=== PATIENT | female | born 1955 | race Caucasian/White ===

== ENCOUNTER 2018-11-11 15:56 | Inpatient (IN) | payer MEDICARE, SELFPAY ==
[2018-11-11] VITALS (20 sets, daily range): BP systolic 110–172; BP diastolic 45–96; PULSE 82–94; RESP 16–24; TEMP 36.6–37.1; O2SAT 85–97; BMI 45.9; BMI 44.3
--- NOTE | 2018-11-11 16:00 | ED.DCSUM_ITS ---
History of Present Illness Chief Complaint: Hyperglycemia Detail of Chief Complaint: Patient has no insulin Informant: Patient Onset: Days Context: Sudden Onset Timing: Continuous Quality: Blurred vision, nocturia, polyuria, high blood sugar Location: Not applicable Current Severity: Moderate Maximum Severity: Moderate Worsened by: Lack of insulin Relieved by: Nothing Associated Symptoms: Polyuria, polyphagia, nocturia and yeast infection Narrative: Patient is a 63-year-old woman who is vacationing from [place]. She states the car she was in broke down. She ran out of insulin. She presents by squad because of blood sugar greater than 600. She complains of blurred vision, polyuria, polyphagia nocturia and yeast infection. She denies fever, chills night sweats. She denies rhinorrhea, postnasal drainage sore throat. She denies cough, shortness of breath or difficulty breathing. She denies chest discomfort. She denies abdominal pain. She denies nausea, vomiting diarrhea. She denies skin lesion. She states is compliant with her other medication. Prior similar symptoms: Yes Recent Illness/Hospitalization: No - Past Medical History (1) Benign essential hypertension Status: Chronic (2) Hypothyroidism Status: Chronic (3) Morbid obesity Status: Chronic (4) Type 2 diabetes mellitus Status: Chronic Past Medical History - Allergies and Home Meds Allergies/Adverse Reactions: Allergies ciprofloxacin [From Cipro] Allergy (Verified 11/11/18 16:01) Anaphylaxis levofloxacin [From Levaquin] Allergy (Verified 11/11/18 16:01) Anaphylaxis lisinopril Adverse Reaction (Verified 11/11/18 16:01) Other metformin Adverse Reaction (Verified 11/11/18 16:01) Diarrhea Prior records reviewed: No - None available Surgical History: appendectomy, cholecystectomy, hysterectomy, - - Bilateral tubal ligation and left hemicolectomy Lives: Spouse/ Significant Other Smoking Status: Former smoker Alcohol: None Drugs: None Review of Systems General: Denies: Chills, Fever, Malaise, Sweats Eyes: Reports: Visual changes - bilaterally, Blurred Vision - bilaterally. Denies: Diplopia ENT: Denies: Rhinorrhea, Sore throat Cardiovascular: Denies: Chest pain, Palpitations Respiratory: Denies: Dyspnea, Cough, Dyspnea on exertion Gastrointestinal: Denies: Abdominal pain, Nausea, Vomiting, Diarrhea, Melena, Hematochezia Genitourinary: Denies: Dysuria, Hematuria, Frequency Musculoskeletal: Denies: Myalgias, Arthralgias, Neck pain, Back pain, Extremity Pain Skin: Denies: Rash, Abrasions, Wounds Neurological: Denies: Headache, Weakness, Numbness Endocrine: Reports: Polyuria, Polydipsia. Denies: Heat intolerance, Cold intolerance Hematologic: Denies: Easy bruising, Easy bleeding Allergy: Denies: Uticaria Physical Exam Inital Vital Signs reviewed: Yes General: Well nourished, Well developed, Obese, No Acute Distress, - - There is no odor of ketones to her breath. Head: Normocephalic, Atraumatic Eyes: Perrl, EOMI. Negative for: Pale conjunctiva, Scleral icterus ENT: No rhinorrhea, TM's clear. Negative for: Dry mucous membranes Neck: Negative for: Supple, Nontender, No lymphadenopathy, No JVD, - Cardiovascular: Regular rate, Regular rhythm, No murmurs, Normal S1, Normal S2 Respiratory: No distress, CTA bilaterally, Chest nontender Abdomen: Soft, Nontender, Nondistended, Normal bowel sounds Back: Nontender, Normal Inspection Extremities: Nontender, No edema Skin: Normal color, No rash Neurological: Alert, Oriented x3, Cranial nerves II-XII grossly intact, Normal Strength, Normal Sensation Psychological: Normal affect, Normal Mood Diagnostic/Tx/Re-eval - EKG Initial EKG Interpretation: Sinus Rhythm - Rate is 92. IA interval is 174 ms. QRS durations 98 ms. QT duration is 366 ms. There is evidence of low voltage. Otherwise the EKG is normal. - Medical Decision Making Patient has symptoms of hyperglycemia. Per squad BGT greater than 600. We will treat initially with IV fluids. Will obtain basic metabolic panel to assess blood sugar as well as CO2/anion gap and electrolytes. Patient received Diflucan for her yeast infection. Will order insulin after IV fluids have infused. And to assess if patient will require insulin infusion versus subQ. Blood sugar is 833 with a normal CO2 and anion gap. Since liter of fluid has infused, insulin infusion was started at 0.05 units/kg/h. Patient was informed of results and need for admission. She is willing to stay. - Critical Care Time Critical care time (excluding procedures): 30-74 minutes - 32 minutes, Dis cussing w/Patient &/or Family/Assembler Skylights, Discussing w/Consultants, Arranging Admission or Transfer ED Disposition - Plan for ED Patient: Disposition: Acute Care Hospital [facility] Diagnosis: Hyperosmolar hyperglycemic coma due to diabetes mellitus without ketoacidosis, Hyperosmolar hyponatremia
[2018-11-11 16:15] LABS: Bedside Glucose > 500 mg/dL (70-110)
[2018-11-11] MEDS: 0.9% Normal Saline 1,000 ML 1000 ML IV ×2 (16:41→18:05)
[2018-11-11] MEDS: Fluconazole 100 MG Tablet 200 MG PO (16:41)
[2018-11-11 17:08] LABS: Absolute Lymphocyte Count 1.83 X10^3/uL (0.83-4.51); Absolute Neutrophil Count 8.6 X10^3/uL (2.0-7.7); Basophil# 0.04 X10^3/uL; Basophil% 0.4 % (0-1); Eosinophil# 0.09 X10^3/uL; Eosinophils% 0.8 % (0-5); Hematocrit 40.6 % (37-47); Hemoglobin 13.7 g/dL (12.0-15.0); Lymphocyte # 1.83 X10^3/ul (4.0); Lymphocyte % 16.4 % (19-41); Mean Corp Hgb Conc 33.7 g/dL (32-36); Mean Corpuscular Hgb 28.7 pg (27.0-32.0); Mean Corpuscular Volume 84.9 fL (81-99); Mean Platelet Vol. 9.4 fl (6.2-12.0); Monocyte# 0.58 X10^3/uL; Monocyte% 5.2 % (0-10); NRBC Flagged by Analyzer 0 % (0-5); Neutrophil # 8.58 X10^3/uL (2.7-7.7); Neutrophil % 76.9 % (47-70); Platelet Count 299 K/mm3 (150-450); RBC Distribution Width CV 13.1 % (11.6-14.6); RBC Distribution Width SD 40.1 fl (35.1-43.9); Red Blood Count 4.78 M/mm3 (4.2-5.4); White Blood Count 11.2 K/mm3 (4.4-11.0)
[2018-11-11 17:31] LABS: Anion Gap 13 (5-15); BUN 28 mg/dL (7-18); BUN/Creat Ratio 21.7 RATIO (10-20); Calcium,Total 8.8 mg/dL (8.5-10.1); Chloride 87 mmol/L (98-107); Creatinine, Serum 1.29 mg/dL (0.55-1.02); EST Glomerular Filtration Rate 44 mL/min (>60); Est Glom Filt Rate - Afr Amer 53 mL/min (>60); Estimated Creatinine Clearance 41.24 ml/min; Glucose 833 mg/dL (74-106); Potassium 4.2 mmol/L (3.5-5.1); Sodium Level 124 mmol/L (136-145)
--- NOTE | 2018-11-11 17:54 | EKG12_ITS ---
Test Reason : Blood Pressure : / mmHG Vent. Rate : 092 BPM Atrial Rate : 092 BPM P-R Int : 174 ms QRS Dur : 090 ms QT Int : 366 ms P-R-T Axes : 072 028 080 degrees QTc Int : 452 ms Normal sinus rhythm Low voltage QRS Borderline ECG Confirmed by ESTRADA MENDENHALL, CAROLE ([id number]), school photograph editor IGOR TOVAR ([id number]) on 11/13/2018 1:33:10 PM Referred By: SABRA Confirmed By:CAROLE DORADO MD
--- NOTE | 2018-11-11 18:46 | HP.PCM_ITS ---
<Samuel Clarke - Last Filed: 11/11/18 18:46> Problem List (1) Hyperosmolar hyperglycemic coma due to diabetes mellitus without ketoacid osis Status: Acute (2) Hyperosmolar hyponatremia Status: Acute (3) Benign essential hypertension Status: Chronic (4) Familial combined hyperlipidemia Status: Chronic (5) Hypothyroidism Status: Chronic (6) Morbid obesity Status: Chronic (7) Type 2 diabetes mellitus Status: Chronic (8) GERD (gastroesophageal reflux disease) Status: Chronic (9) Hiatal hernia Status: Chronic History of Present Illness Date of Admission: 11/11/18 Chief Complaint: Elevated glucose The patient is a 63 year old F with past medical history of type 2 diabetes, with morbid obesity, hypertension, hypothyroidism, GERD, hiatal hernia, who presents to the emergency room with complaints of blood sugar reading over 600 at home. The patient is currently visiting [place] from [place]. She was only planning on being here for 1 week however her car broke down while she was here and she only brought 1 weeks worth of insulin here. She recently ran out of her insulin and has been trying to manage her blood sugars by drinking extra water. Today she checked her blood sugar this morning it was 530, she drank extra water and rechecked it and it was greater than 600. She developed symptoms including difficulty swallowing, mild SOB, difficulty speaking, and increased thirst. She also has developed a severe yeast infection for which she was given Diflucan in the emergency room. She was brought to the ER and started on an insulin drip. She currently is resting comfortable in bed no acute distress. She is agreeable to staying overnight being placed on insulin drip. [] Past Medical History Past Medical History (Chronic Problems): Chronic Problems GERD (gastroesophageal reflux disease) (Chronic) Hiatal hernia (Chronic) Morbid obesity (Chronic) Hypothyroidism (Chronic) Familial combined hyperlipidemia (Chronic) Type 2 diabetes mellitus (Chronic) Benign essential hypertension (Chronic) Allergies ciprofloxacin [From Cipro] Allergy (Verified 11/11/18 16:01) Anaphylaxis levofloxacin [From Levaquin] Allergy (Verified 11/11/18 16:01) Anaphylaxis lisinopril Adverse Reaction (Verified 11/11/18 16:01) Other metformin Adverse Reaction (Verified 11/11/18 16:01) Diarrhea Surgical History: appendectomy, cholecystectomy, hysterectomy, - - Bilateral tubal ligation and left hemicolectomy 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 Denies: Cough, Shortness of breath at rest, Sputum production Gastrointestinal: Reports: - - difficulty swalling.. Denies: Abdominal Pain, Nausea, Vomiting Genitourinary: Denies: Dysuria Musculoskeletal: Denies: Joint Pain, Joint Tenderness Skin: Denies: Rash, Wounds Neurological: Denies: Numbness, Tingling, Focal weakness Psychiatric: Denies: Anxiety, Depression, Homicidal Ideations, Suicidal Ideations Endocrine: Reports: Polydipsia Hematologic/ Lymphatic: Denies: Easy Bruising, Easy Bleeding VTE Information - Inpt Only VTE Present on Admission: No VTE Mechan Device Prophylaxis: None VTE Pharm Prophylaxis ordered?: Yes Patient Problems: Active and Suspected Problems Hyperosmolar hyperglycemic coma due to diabetes mellitus without ketoacidosis (Acute) Hyperosmolar hyponatremia (Acute) - Physical Exam General: Alert, Oriented x3, Cooperative HEENT: Atraumatic, PERRLA, EOMI, Normocephalic Neck: Supple, No JVD, Negative Carotid Bruits Lungs: Clear to auscultation, Normal air movement Cardiovascular: Regular rate, No murmurs Abdomen: Bowel Sounds Present, Soft, Non Tender, Obese Extremities: No edema, Capillary Refill Less than 3 Seconds Skin: No rashes, No breakdown Musculoskeletal: No Tenderness to Palpation of Joints or Extremities Neurological: Cranial nerves II-XII grossly intact Psych/Mental Status: Normal Affect, Appropriate, Alert and oriented to time, place, person, mood and affect Vital Signs Temp Pulse Resp BP Pulse Ox 98.8 F 91 16 172/85 H 92 11/11/18 15:58 11/11/18 18:12 11/11/18 18:12 11/11/18 18:12 11/11/18 18:12 Oxygen Delivery Method Room Air Weight: 284 lb 13.396 oz Body Mass Index (BMI) 45.9 Laboratory Tests Past 24 Hrs 11/11/18 11/11/18 17:00 17:00 WBC 11.2 H RBC 4.78 Hgb 13.7 Hct 40.6 MCV 84.9 MCH 28.7 MCHC 33.7 RDW Std Deviation 40.1 RDW Coeff of Shira 13.1 Plt Count 299 MPV 9.4 Immature Gran % (Auto) 0.300 Neut % (Auto) 76.9 H Lymph % (Auto) 16.4 L Kidder % (Auto) 5.2 Eos % (Auto) 0.8 Baso % (Auto) 0.4 Absolute Neuts (auto) 8.6 H Absolute Lymphs (auto) 1.83 Nucleated RBC % 0 Sodium 124 L Potassium 4.2 Chloride 87 L Carbon Dioxide 24.0 Anion Gap 13 BUN 28 H Creatinine 1.29 H Estim Creat Clear Calc 41.24 Est GFR (MDRD) Af Amer 53 L Est GFR (MDRD) Non-Af 44 L BUN/Creatinine Ratio 21.7 H Glucose 833 H* Calcium 8.8 POC Glucose 11/11/18 16:11 POC Glucose > 500 H* Assessment/Plan All Active Problems Hyperosmolar hyperglycemic coma due to diabetes mellitus without ketoacidosis (Acute) Hyperosmolar hyponatremia (Acute) 1. Type 2 diabetes with HHS-secondary to patient running out of home insulin regimen. Will increase insulin drip to 0.1 units/kg/h. Provide aggressive IV fluids. She will need a prescription for her home medications at discharge. Gap is normal. 2. Hyponatremia-secondary to #1. Hydrate with normal saline. 3. Dehydration-mild elevation in BUN and creatinine. 4. Development of yeast infection-likely secondary to #1-received Diflucan in the ER. 5. Morbid obesity 6. Obstructive sleep apnea-CPAP nightly 7. Hypertension-hold HCTZ with hyponatremia 8. Anxiety depression-continue home medications 9. Hypothyroidism-continue Synthroid 10. GERD and hiatal hernia-continue PPI 11. HLD - on statin DVT ppx: lovenox DC planning: Likely home tomorrow, again will need prescriptions for medication she is out of at discharge. This patient was seen by Samuel Clarke PA-C under the supervision of Doctor Yoan. <Marco Antonio Milton - Last Filed: 11/11/18 19:03> History of Present Illness The patient is a 63 year old F [] Past Medical History Allergies ciprofloxacin [From Cipro] Allergy (Verified 11/11/18 16:01) Anaphylaxis levofloxacin [From Levaquin] Allergy (Verified 11/11/18 16:01) Anaphylaxis lisinopril Adverse Reaction (Verified 11/11/18 16:01) Other metformin Adverse Reaction (Verified 11/11/18 16:01) Diarrhea - Physical Exam Vital Signs Temp Pulse Resp BP Pulse Ox 98.8 F 91 16 172/85 H 92 11/11/18 15:58 11/11/18 18:12 11/11/18 18:12 11/11/18 18:12 11/11/18 18:12 Oxygen Delivery Method Room Air Weight: 129.2 kg Body Mass Index (BMI) 45.9 Laboratory Tests Past 24 Hrs 11/11/18 11/11/18 17:00 17:00 WBC 11.2 H RBC 4.78 Hgb 13.7 Hct 40.6 MCV 84.9 MCH 28.7 MCHC 33.7 RDW Std Deviation 40.1 RDW Coeff of Shira 13.1 Plt Count 299 MPV 9.4 Immature Gran % (Auto) 0.300 Neut % (Auto) 76.9 H Lymph % (Auto) 16.4 L Kidder % (Auto) 5.2 Eos % (Auto) 0.8 Baso % (Auto) 0.4 Absolute Neuts (auto) 8.6 H Absolute Lymphs (auto) 1.83 Nucleated RBC % 0 Sodium 124 L Potassium 4.2 Chloride 87 L Carbon Dioxide 24.0 Anion Gap 13 BUN 28 H Creatinine 1.29 H Estim Creat Clear Calc 41.24 Est GFR (MDRD) Af Amer 53 L Est GFR (MDRD) Non-Af 44 L BUN/Creatinine Ratio 21.7 H Glucose 833 H* Calcium 8.8 POC Glucose 11/11/18 16:11 POC Glucose > 500 H* Assessment/Plan This patient was seen in conjunction with Samuel Clarke PA-C . I have independently interviewed and examined the patient and reviewed pertinent historical, laboratory, and other data. Please refer to Samuel Clarke PA-C note for details of this patient's presentation, findings, and recommendations. I have reviewed Samuel Clarke PA-C note and concur with documented findings. In brief, patient is a 63-year-old female who presented with hyperglycemia after she ran out of her insulin Physical Examination: GENERAL: cooperative HEENT: Atraumatic; moist oral mucosa EYES; Anicteric, Normal Conjunctiva NECK; supple, normal thyroid, RESPIRATORY: Diminished to auscultation CARDIOVASCULAR: Regular S1 S2, EXTREMITIES: No edema, no clubbing, MUSCULOSKELETAL: No Joint Tenderness; NEURO: Awake; no lateralizing signs. SKIN: No Rash PSYCH; Normal affect Assessment: 1. Hyperosmolar nonketotic state 2. Diabetes mellitus type 2 presented with hyperosmolar nonketotic state 3. Hypothyroidism 4. Obesity with BMI of 46 5. Hiatal hernia with GERD 6. Depression with anxiety 7. Pseudohyponatremia 8. Dyslipidemia 9. HERMINIA 10. Essential Hypertension Recommendations: 1. I have discussed the results of my overview and impressions with the patient 2. Options for management were reviewed Code Visit OBSV E&M: [id number] Initial observation care L3
[2018-11-11] MEDS: 0.9% Normal Saline 1,000 ML 200 ML IV (20:17)
[2018-11-11] MEDS: Acetaminophen 325 MG Tablet 650 MG PO (20:30)
[2018-11-11 20:36] LABS: Bedside Glucose 435 mg/dL (70-110)
[2018-11-11 20:36] LABS: Bedside Glucose > 500 mg/dL (70-110)
[2018-11-11 20:50] LABS: Glucose 453 mg/dL (74-106)
[2018-11-11] MEDS: Pantoprazole Sodium 40 MG Tablet PO (21:27)
[2018-11-11] MEDS: Enoxaparin 40 MG/0.4 ML Syringe SC (21:27)
[2018-11-11] MEDS: Atorvastatin Calcium 40 MG Tablet PO (21:27)
[2018-11-11 22:20] LABS: Bedside Glucose 178 mg/dL (70-110)
[2018-11-11 22:20] LABS: Bedside Glucose 267 mg/dL (70-110)
[2018-11-11 22:41] LABS: Mucous, Urine 0 SEEN /hpf (<or=2+); Red Blood Cells-Urine 0 SEEN /hpf (0-5)
[2018-11-11 22:43] LABS: Color, Urine Straw (Yellow); Glucose, Dipstick 1000 mg/dl (Normal); Ketone-Dipstick 50 mg/dl (Negative); Leukocyte Esterase-Dipstick 100 /ul (Negative); Nitrite-Dipstick Negative (Negative); Occult Blood-Urine 25 /ul (Negative); Protein-Dipstick Negative (Negative); Urine Bilirubin Dipstick Negative (Negative); Urine Clarity Clear (Clear); Urine Urobilinogen Normal (Normal)
[2018-11-11 22:57] LABS: Bacteria 1+ /hpf (None Seen); Squamous Epithelial Cells - UA 0-5 SEEN /hpf (5-10); White Blood Cells 0-5 SEEN /hpf (0-5)
[2018-11-11 22:58] LABS: Yeast-Urine 1+ /hpf (None Seen)
[2018-11-11] MEDS: Metoprolol(XL)Succ 25 MG Tablet PO (23:31)
[2018-11-11 23:41] LABS: Bedside Glucose 132 mg/dL (70-110)
--- NOTE | 2018-11-11 23:56 | CPS ---
PT STATES HER CPAP SETTING AT HOME IS [id number].
[2018-11-12] VITALS (23 sets, daily range): BP systolic 101–153; BP diastolic 54–96; PULSE 67–99; RESP 12–22; TEMP 36.1–36.7; O2SAT 88–99
[2018-11-12 00:16] LABS: Bedside Glucose 137 mg/dL (70-110)
[2018-11-12] MEDS: 0.9% Normal Saline 1,000 ML 200 ML IV ×2 (01:14→05:43)
[2018-11-12 01:20] LABS: Bedside Glucose 168 mg/dL (70-110)
[2018-11-12 02:25] LABS: Bedside Glucose 213 mg/dL (70-110)
[2018-11-12 03:25] LABS: Bedside Glucose 234 mg/dL (70-110)
[2018-11-12 04:56] LABS: Bedside Glucose 313 mg/dL (70-110)
[2018-11-12] MEDS: Levothyroxine 150 MCG Tablet PO (05:42)
[2018-11-12] MEDS: Insulin Lispro 100 UNIT/ML INSULN.PEN 15 UNIT SC ×4 (05:42→17:35)
[2018-11-12 06:26] LABS: Absolute Lymphocyte Count 2.55 X10^3/uL (0.83-4.51); Absolute Neutrophil Count 4.5 X10^3/uL (2.0-7.7); Basophil# 0.05 X10^3/uL; Basophil% 0.6 % (0-1); Eosinophil# 0.24 X10^3/uL; Eosinophils% 3.1 % (0-5); Hematocrit 37.1 % (37-47); Hemoglobin 12.5 g/dL (12.0-15.0); Lymphocyte # 2.55 X10^3/ul (4.0); Lymphocyte % 32.8 % (19-41); Mean Corp Hgb Conc 33.7 g/dL (32-36); Mean Corpuscular Hgb 28.5 pg (27.0-32.0); Mean Corpuscular Volume 84.5 fL (81-99); Mean Platelet Vol. 9.2 fl (6.2-12.0); Monocyte# 0.39 X10^3/uL; NRBC Flagged by Analyzer 0 % (0-5); Neutrophil # 4.53 X10^3/uL (2.7-7.7); Neutrophil % 58.2 % (47-70); Platelet Count 287 K/mm3 (150-450); RBC Distribution Width CV 13.2 % (11.6-14.6); RBC Distribution Width SD 40.2 fl (35.1-43.9); Red Blood Count 4.39 M/mm3 (4.2-5.4); White Blood Count 7.8 K/mm3 (4.4-11.0)
[2018-11-12 07:02] LABS: Anion Gap 7 (5-15); BUN 20 mg/dL (7-18); BUN/Creat Ratio 25.2 RATIO (10-20); Calcium,Total 8.3 mg/dL (8.5-10.1); Chloride 101 mmol/L (98-107); Creatinine, Serum 0.79 mg/dL (0.55-1.02); EST Glomerular Filtration Rate 77 mL/min (>60); Est Glom Filt Rate - Afr Amer 94 mL/min (>60); Estimated Creatinine Clearance 69.96 ml/min; Glucose 323 mg/dL (74-106); Potassium 3.4 mmol/L (3.5-5.1); Sodium Level 134 mmol/L (136-145)
[2018-11-12 08:45] LABS: Bedside Glucose 313 mg/dL (70-110)
[2018-11-12] MEDS: Enoxaparin 40 MG/0.4 ML Syringe SC ×2 (10:49→21:32)
[2018-11-12] MEDS: Fluticasone 0.05% 1 SPRAY NASAL.SRY 2 SPRAY NASAL (10:49)
[2018-11-12] MEDS: DULoxetine Hcl 60 MG Capsule PO (10:50)
[2018-11-12] MEDS: Loratadine 10 MG Tablet PO (10:50)
--- NOTE | 2018-11-12 10:58 | NURSING ---
wound photo: left 3rd toe
[2018-11-12] MEDS: 0.9% Normal Saline 1,000 ML 100 ML IV ×2 (11:37→22:23)
[2018-11-12 11:50] LABS: Bedside Glucose 383 mg/dL (70-110)
--- NOTE | 2018-11-12 12:10 | CASEMGMT ---
RN HAKEEM IT SUPPORT ANALYST CM to room to meet with patient for initial transition planning/care coordination assessment. RN HAKEEM introduced self and role at [facility]. Pt voices understanding and consents to assessment at this time. Pt resting in bed in no distress at this time. Pt is A/O at this time and answers all questions appropriately. Care providers, pharmacy, and demographics verified/updated at this time. PCP: Dr Kayode Boogie in [place], [place] Specialists: none. Preferred Pharmacy: [facility]. Pt states while visiting in [place], she ran out of her insulin and d/t concerns of cost to have the prescriptions transferred to a local pharmacy in [place], she did not have them filled while here. She states she is concerned about the cost of medication at discharge. Pt informed J LUIS PALACIO will do ryan check on medications before she is discharged and discuss cost with her. Pt voices appreciation. Pt may benefit from [facility] Rx [facility]ist Program. Insurance: [employer] [facility] Prescription Benefit: Yes Living Will/HPOA: Pt does not currently have LW/HCPOA and states is interested in this. Pt made aware that forms are specific for each state. Pt states she will follow up with someone in [place] when she returns home to get these completed. LNOK: Living Arrangements: Lives with in a one-story home. 2 steps to enter. Independent with ADL's. Transportation: Pt states she drives but her car is in the shop. She states her friend will be picking her up at discharge and she will stay with her DIL until they are able to pick it up. DME: States has the following DME: hand held shower, cane, stool in bathtub, CPAP, glucometer. States she has the glucometer with her while here visiting in [place], that it works properly, and that she has all needed supplies for it. Pt states no need for further DME at this time. HHC/SNF: No history of either and no needs identified. Pt wishes to return home and states has no concerns with going home at time of discharge. Pt states does not smoke or drink ETOH. CM to follow for further discharge planning/needs. Pt voices no further concerns/needs at this time. Advised pt to ask for CM if any further questions/concerns/needs arise. Voices understanding. PLAN: Home with family support and discharge plans in place. Rosamaria STEVENS RN, CM
--- NOTE | 2018-11-12 13:38 | PCM.PROGNOTE ---
<Samuel Clarke - Last Filed: 11/12/18 13:38> Patient Problems: Active and Suspected Problems Hyperosmolar hyperglycemic coma due to diabetes mellitus without ketoacidosis (Acute) Hyperosmolar hyponatremia (Acute) Subjective: Pt resting comfortably upright at side of bed NAD. She does not feel quite back to her normal self. She feels the yeast infection is improving. Blood sugars are improved, still fluctuant. No SOB. No abdominal pain, nausea, vomiting. No dizziness/LH. No new numbness or tingling. No change in wound on toe. No fevers or chills. - Physical Exam General: Alert, Oriented x3, Cooperative HEENT: Atraumatic, PERRLA, EOMI, Normocephalic Neck: Supple, No JVD, Negative Carotid Bruits Lungs: Clear to auscultation, Normal air movement Cardiovascular: Regular rate, No murmurs Abdomen: Bowel Sounds Present, Soft, Non Tender Extremities: No edema, Capillary Refill Less than 3 Seconds Skin: No rashes, No breakdown Musculoskeletal: No Tenderness to Palpation of Joints or Extremities Neurological: Cranial nerves II-XII grossly intact Psych/Mental Status: Normal Affect, Appropriate, Alert and oriented to time, place, person, mood and affect Vital Signs Temp Pulse Resp BP Pulse Ox 97.0 F L 78 18 147/57 H 96 11/12/18 10:45 11/12/18 12:13 11/12/18 10:45 11/12/18 10:45 11/12/18 10:45 Oxygen Delivery Method Room Air Weight: 282 lb 13.649 oz Body Mass Index (BMI) 44.3 Intake and Output for Last 24 Hours 11/10/18 11/11/18 11/12/18 23:59 23:59 23:59 Intake Total 1199.2 / 1199.2 1231 / 1231 Output Total 600 / 600 Balance 599.2 / 599.2 1231 / 1231 Laboratory Tests Past 24 Hrs 11/11/18 11/11/18 11/11/18 17:00 17:00 20:10 WBC 11.2 H RBC 4.78 Hgb 13.7 Hct 40.6 MCV 84.9 MCH 28.7 MCHC 33.7 RDW Std Deviation 40.1 RDW Coeff of Shira 13.1 Plt Count 299 MPV 9.4 Immature Gran % (Auto) 0.300 Neut % (Auto) 76.9 H Lymph % (Auto) 16.4 L [place] % (Auto) 5.2 Eos % (Auto) 0.8 Baso % (Auto) 0.4 Absolute Neuts (auto) 8.6 H Absolute Lymphs (auto) 1.83 Nucleated RBC % 0 Sodium 124 L Potassium 4.2 Chloride 87 L Carbon Dioxide 24.0 Anion Gap 13 BUN 28 H Creatinine 1.29 H Estim Creat Clear Calc 41.24 Est GFR (MDRD) Af Amer 53 L Est GFR (MDRD) Non-Af 44 L BUN/Creatinine Ratio 21.7 H Glucose 833 H* 453 H* Calcium 8.8 Urine Color Urine Clarity Urine pH Ur Specific [place] Urine Protein Urine Glucose (UA) Urine Ketones Urine Occult Blood Urine Nitrite Urine Bilirubin Urine Urobilinogen Ur Leukocyte Esterase Urine RBC Urine WBC Ur Squamous Epith Cells Urine Bacteria Urine Mucus Urine Yeast 11/11/18 11/12/18 11/12/18 20:20 06:00 06:00 WBC 7.8 RBC 4.39 Hgb 12.5 Hct 37.1 MCV 84.5 MCH 28.5 MCHC 33.7 RDW Std Deviation 40.2 RDW Coeff of Shira 13.2 Plt Count 287 MPV 9.2 Immature Gran % (Auto) 0.300 Neut % (Auto) 58.2 Lymph % (Auto) 32.8 [place] % (Auto) 5.0 Eos % (Auto) 3.1 Baso % (Auto) 0.6 Absolute Neuts (auto) 4.5 Absolute Lymphs (auto) 2.55 Nucleated RBC % 0 Sodium 134 L Potassium 3.4 L Chloride 101 Carbon Dioxide 26.0 Anion Gap 7 BUN 20 H Creatinine 0.79 Estim Creat Clear Calc 69.96 Est GFR (MDRD) Af Amer 94 Est GFR (MDRD) Non-Af 77 BUN/Creatinine Ratio 25.2 H Glucose 323 H Calcium 8.3 L Urine Color Straw Urine Clarity Clear Urine pH 6.0 Ur Specific [place] 1.010 Urine Protein Negative Urine Glucose (UA) 1000 H Urine Ketones 50 H Urine Occult Blood 25 H Urine Nitrite Negative Urine Bilirubin Negative Urine Urobilinogen Normal Ur Leukocyte Esterase 100 H Urine RBC 0 SEEN Urine WBC 0-5 SEEN Ur Squamous Epith Cells 0-5 SEEN Urine Bacteria 1+ Urine Mucus 0 SEEN Urine Yeast 1+ POC Glucose 07/31/19 07/31/19 07/31/19 11:34 08:41 04:51 POC Glucose 383 H 313 H 313 H 11/12/18 11/12/18 11/12/18 03:20 02:11 01:10 POC Glucose 234 H 213 H 168 H 11/12/18 11/11/18 11/11/18 00:04 23:16 22:11 POC Glucose 137 H 132 H 178 H 11/11/18 11/11/18 11/11/18 21:13 20:11 19:29 POC Glucose 267 H 435 H > 500 H* 11/11/18 16:11 POC Glucose > 500 H* Medical Necessity - Tobacco Use Smoking Status: Former smoker Tobacco Use: Non-smoker Assessment/Plan All Active Problems Hyperosmolar hyperglycemic coma due to diabetes mellitus without ketoacidosis (Acute) Hyperosmolar hyponatremia (Acute) 1. Type 2 diabetes with HHS- home regimen resumed. SSI added. Improving. Titrate back fluids. 2. Hyponatremia-secondary to #1. Improved. Low K, repleted. 3. Dehydration-mild elevation in BUN and creatinine. 4. Development of yeast infection-likely secondary to #1-received Diflucan in the ER. 5. 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 Obstructive sleep apnea-CPAP nightly 7. Hypertension-hold HCTZ with hyponatremia 8. Anxiety depression-continue home medications 9. Hypothyroidism-continue Synthroid 10. GERD and hiatal hernia-continue PPI 11. HLD - on statin 12. Toe abrasion - healing. No signs of infection. Wound care evaluating. DVT ppx: lovenox DC planning: Likely home tomorrow, again will need prescriptions for medication she is out of at discharge. This patient was seen by Samuel Clarke PA-C under the supervision of Doctor Yoan. <Marco Antonio Milton - Last Filed: 11/12/18 13:54> - Physical Exam Vital Signs Temp Pulse Resp BP Pulse Ox 97.0 F L 78 18 147/57 H 96 11/12/18 10:45 11/12/18 12:13 11/12/18 10:45 11/12/18 10:45 11/12/18 10:45 Oxygen Delivery Method Room Air Weight: 128.3 kg Body Mass Index (BMI) 44.3 Intake and Output for Last 24 Hours 07/29/19 07/30/19 07/31/19 23:59 23:59 23:59 Intake Total 1199.2 / 1199.2 1231 / 1231 Output Total 600 / 600 Balance 599.2 / 599.2 1231 / 1231 Laboratory Tests Past 24 Hrs 11/11/18 11/11/18 11/11/18 17:00 17:00 20:10 WBC 11.2 H RBC 4.78 Hgb 13.7 Hct 40.6 MCV 84.9 MCH 28.7 MCHC 33.7 RDW Std Deviation 40.1 RDW Coeff of Shira 13.1 Plt Count 299 MPV 9.4 Immature Gran % (Auto) 0.300 Neut % (Auto) 76.9 H Lymph % (Auto) 16.4 L [place] % (Auto) 5.2 Eos % (Auto) 0.8 Baso % (Auto) 0.4 Absolute Neuts (auto) 8.6 H Absolute Lymphs (auto) 1.83 Nucleated RBC % 0 Sodium 124 L Potassium 4.2 Chloride 87 L Carbon Dioxide 24.0 Anion Gap 13 BUN 28 H Creatinine 1.29 H Estim Creat Clear Calc 41.24 Est GFR (MDRD) Af Amer 53 L Est GFR (MDRD) Non-Af 44 L BUN/Creatinine Ratio 21.7 H Glucose 833 H* 453 H* Calcium 8.8 Urine Color Urine Clarity Urine pH Ur Specific [place] Urine Protein Urine Glucose (UA) Urine Ketones Urine Occult Blood Urine Nitrite Urine Bilirubin Urine Urobilinogen Ur Leukocyte Esterase Urine RBC Urine WBC Ur Squamous Epith Cells Urine Bacteria Urine Mucus Urine Yeast 11/11/18 11/12/18 11/12/18 20:20 06:00 06:00 WBC 7.8 RBC 4.39 Hgb 12.5 Hct 37.1 MCV 84.5 MCH 28.5 MCHC 33.7 RDW Std Deviation 40.2 RDW Coeff of Shira 13.2 Plt Count 287 MPV 9.2 Immature Gran % (Auto) 0.300 Neut % (Auto) 58.2 Lymph % (Auto) 32.8 [place] % (Auto) 5.0 Eos % (Auto) 3.1 Baso % (Auto) 0.6 Absolute Neuts (auto) 4.5 Absolute Lymphs (auto) 2.55 Nucleated RBC % 0 Sodium 134 L Potassium 3.4 L Chloride 101 Carbon Dioxide 26.0 Anion Gap 7 BUN 20 H Creatinine 0.79 Estim Creat Clear Calc 69.96 Est GFR (MDRD) Af Amer 94 Est GFR (MDRD) Non-Af 77 BUN/Creatinine Ratio 25.2 H Glucose 323 H Calcium 8.3 L Urine Color Straw Urine Clarity Clear Urine pH 6.0 Ur Specific [place] 1.010 Urine Protein Negative Urine Glucose (UA) 1000 H Urine Ketones 50 H Urine Occult Blood 25 H Urine Nitrite Negative Urine Bilirubin Negative Urine Urobilinogen Normal Ur Leukocyte Esterase 100 H Urine RBC 0 SEEN Urine WBC 0-5 SEEN Ur Squamous Epith Cells 0-5 SEEN Urine Bacteria 1+ Urine Mucus 0 SEEN Urine Yeast 1+ POC Glucose 11/12/18 11/12/18 11/12/18 11:34 08:41 04:51 POC Glucose 383 H 313 H 313 H 11/12/18 11/12/18 11/12/18 03:20 02:11 01:10 POC Glucose 234 H 213 H 168 H 11/12/18 11/11/18 11/11/18 00:04 23:16 22:11 POC Glucose 137 H 132 H 178 H 11/11/18 11/11/18 11/11/18 21:13 20:11 19:29 POC Glucose 267 H 435 H > 500 H* 11/11/18 16:11 POC Glucose > 500 H* Assessment/Plan This patient was seen in conjunction with Samuel Clarke PA-C . I have independently interviewed and examined the patient and reviewed pertinent historical, laboratory, and other data. Please refer to Samuel Clarke PA-C note for details of this patient's presentation, findings, and recommendations. I have reviewed Samuel Clarke PA-C note and concur with documented findings. In brief, patient is a 63-year-old female who presented with hyperglycemia after she ran out of her insulin 11/11/2018. Patient was admitted to a monitored bed started on insulin drip. There is been some improvement in patient's glucose levels however still remains markedly elevated Physical Examination: GENERAL: cooperative HEENT: Atraumatic; moist oral mucosa EYES; Anicteric, Normal Conjunctiva NECK; supple, normal thyroid, RESPIRATORY: Diminished to auscultation CARDIOVASCULAR: Regular S1 S2, EXTREMITIES: No edema, no clubbing, MUSCULOSKELETAL: No Joint Tenderness; NEURO: Awake; no lateralizing signs. SKIN: No Rash PSYCH; Normal affect Assessment: 1. Hyperosmolar nonketotic state 2. Diabetes mellitus type 2 presented with hyperosmolar nonketotic state 3. Hypothyroidism 4. Obesity with BMI of 46 5. Hiatal hernia with GERD 6. Depression with anxiety 7. Pseudohyponatremia 8. Dyslipidemia 9. HERMINIA 10. Essential Hypertension Recommendations: 1. I have discussed the results of my overview and impressions with the patient 2. Options for management were reviewed Code Visit OBSV E&M: 29191 Subsequent observation care L3
[2018-11-12] MEDS: Ceftriaxone 1 GM/50 ML BAG IV (15:38)
[2018-11-12 16:50] LABS: Bedside Glucose 305 mg/dL (70-110)
[2018-11-12] MEDS: Insulin Lispro 100 UNIT/ML INSULN.PEN SC ×2 (17:36→22:20)
[2018-11-12] MEDS: Pantoprazole Sodium 40 MG Tablet PO (21:32)
[2018-11-12] MEDS: Atorvastatin Calcium 40 MG Tablet PO (21:32)
[2018-11-12] MEDS: Metoprolol(XL)Succ 25 MG Tablet PO (21:32)
[2018-11-12] MEDS: Acetaminophen 325 MG Tablet 650 MG PO (21:33)
[2018-11-12 21:46] LABS: Bedside Glucose 352 mg/dL (70-110)
[2018-11-12] MEDS: 0.9% NaCl Peripheral Flush Adult/Peds IV (22:36)
[2018-11-13] VITALS (7 sets, daily range): BP systolic 132–137; BP diastolic 52–76; PULSE 72–92; RESP 16–19; TEMP 35.6–37.1; O2SAT 91–98
[2018-11-13] MEDS: Insulin Lispro 100 UNIT/ML INSULN.PEN SC ×3 (03:47→12:10)
[2018-11-13 03:55] LABS: Bedside Glucose 206 mg/dL (70-110)
[2018-11-13] MEDS: Levothyroxine 150 MCG Tablet PO (05:45)
[2018-11-13] MEDS: 0.9% Normal Saline 1,000 ML 100 ML IV (05:45)
[2018-11-13 06:26] LABS: Anion Gap 8 (5-15); BUN 14 mg/dL (7-18); Calcium,Total 8.1 mg/dL (8.5-10.1); Chloride 107 mmol/L (98-107); EST Glomerular Filtration Rate 89 mL/min (>60); Est Glom Filt Rate - Afr Amer 108 mL/min (>60); Estimated Creatinine Clearance 78.96 ml/min; Glucose 195 mg/dL (74-106); Potassium 3.4 mmol/L (3.5-5.1); Sodium Level 141 mmol/L (136-145)
[2018-11-13] MEDS: Insulin Lispro 100 UNIT/ML INSULN.PEN 20 UNIT SC ×2 (08:24→12:12)
[2018-11-13 08:46] LABS: Bedside Glucose 188 mg/dL (70-110)
[2018-11-13] MEDS: Loratadine 10 MG Tablet PO (09:26)
[2018-11-13] MEDS: DULoxetine Hcl 60 MG Capsule PO (09:26)
[2018-11-13] MEDS: Fluticasone 0.05% 1 SPRAY NASAL.SRY 2 SPRAY NASAL (09:27)
[2018-11-13] MEDS: Enoxaparin 40 MG/0.4 ML Syringe SC (09:28)
[2018-11-13] MEDS: Ceftriaxone 1 GM/50 ML BAG IV (09:58)
--- NOTE | 2018-11-13 11:16 | PCM.DC ---
- Discharge Diagnoses Current Active Problems: Current Active and Chronic Problems Hyperosmolar hyperglycemic coma due to diabetes mellitus without ketoacidosis (Acute) Hyperosmolar hyponatremia (Acute) GERD (gastroesophageal reflux disease) (Chronic) Hiatal hernia (Chronic) You will use the following diet at home:: Calorie/Carbohydrate Controlled (specify 1200, 1400, etc) - 1800 Your food should be the consistency of: Regular Allergies/Adverse Reactions: Allergies ciprofloxacin [From Cipro] Allergy (Verified 11/11/18 16:01) Anaphylaxis levofloxacin [From Levaquin] Allergy (Verified 11/11/18 16:01) Anaphylaxis lisinopril Adverse Reaction (Verified 11/11/18 19:24) cough metformin Adverse Reaction (Verified 11/11/18 16:01) Diarrhea Medications to take at Discharge Acetaminophen [Tylenol Arthritis] 650 - 1,300 mg PO BID PRN PRN 11/11/18 Dulaglutide [Trulicity] 1.5 mg SQ WE 11/11/18 Duloxetine HCl 60 mg PO DAILY 11/11/18 Fexofenadine HCl 180 mg PO DAILY 11/11/18 Fluticasone 0.05% [Flonase Nasal [place]] 2 spry NASAL DAILY 11/11/18 Insulin Degludec [Tresiba Flextouch U-100] 62 units SQ DAILY 11/11/18 Levothyroxine Sodium 150 mcg PO DAILY 11/11/18 Losartan/Hydrochlorothiazide [Losartan-Hctz 100-25 mg Tab] 1 tab PO DAILY 11/11/18 Metoprolol(XL)Succ [Toprol Xl (Beta El[place])] 25 mg PO QHS 11/11/18 Omeprazole/Sodium Bicarbonate [Omeprazole-Bicarb 40-1,100 Cap] 1 cap PO QHS 11/11/18 Simvastatin 80 mg PO QHS 11/11/18 Cephalexin [Keflex] 500 mg PO TID #15 cap 11/13/18 Insulin Aspart [Novolog Vial] 20 units SQ TIDCM #0 11/13/18 Insulin Glargine [Lantus SoloStar Pen] 62 units SUBCUT DAILY #14 pen 11/13/18 Insulin Lispro [Humalog KwikPen] 20 unit SUBCUT TIDCM #8 insuln.pen 11/13/18 Potassium Chloride [K-Dur] 20 meq PO BIDCM #20 tab 11/13/18 The following prescriptions were given: Insulin Lispro [Humalog KwikPen] 20 unit SUBCUT TIDCM #8 insuln.pen Transmission Status: Sent to [facility] Potassium Chloride [K-Dur] 20 meq PO BIDCM #20 tab Transmission Status: Sent to [facility] Cephalexin [Keflex] 500 mg PO TID #15 cap Transmission Status: Pending to [id number] Insulin Glargine [Lantus SoloStar Pen] 62 units SUBCUT DAILY #14 pen Transmission Status: Sent to [facility] Primary Care Physician: Care Physician,No Primary [NON-STAFF] - Please follow up with your Primary Care Physician in: in 1-2 weeks in [place] Test Results: Test results from this visit will be discussed in further detail at your follow-up appointment, if applicable. Proposed Discharge Date: 11/13/18
--- NOTE | 2018-11-13 11:18 | PCM.DC.SUM ---
Discharge Date and Diagnosis - Problem List Patient Problems: Active and Suspected Problems Acute cystitis (Acute) Hyperosmolar hyperglycemic coma due to diabetes mellitus without ketoacidosis (Acute) Hyperosmolar hyponatremia (Acute) Date of Admission: 11/11/18 Date of Discharge: 11/13/18 - Primary Discharge Diagnosis Active and Suspected Problems Acute cystitis (Acute) Hyperosmolar hyperglycemic coma due to diabetes mellitus without ketoacidosis (Acute) Hyperosmolar hyponatremia (Acute) - Secondary Discharge Diagnosis Chronic Problems GERD (gastroesophageal reflux disease) (Chronic) Hiatal hernia (Chronic) Morbid obesity (Chronic) Hypothyroidism (Chronic) Familial combined hyperlipidemia (Chronic) Type 2 diabetes mellitus (Chronic) Benign essential hypertension (Chronic) Hospital Course and Treatment Consultations 11/11/18 19:24 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 Hyperosmolar nonketotic state: Patient was admitted to monitored bed managed with insulin initially IV switched to scheduled. Patient glucose levels are improved at the time of discharge 2. Diabetes mellitus type 2 presented with hyperosmolar nonketotic state 3. Acute cystitis with E. coli treated with Rocephin discharge him on Keflex 4. Hypokalemia corrected per protocol 5. Hypothyroidism-patient is on levothyroxine home dose continued 6. Obesity with BMI of 46 7. Hiatal hernia with GERD patient is on PPI 8. Depression with anxiety 9. Pseudohyponatremia due to patient hyperglycemia 10. Essential hypertension-blood pressure controlled, home medications continued with dose adjustment as needed 11. Dyslipidemia-patient is on statin therapy, continued at home dose 12. Sleep apnea on CPAP at night Patient Problems: Active and Suspected Problems Acute cystitis (Acute) Hyperosmolar hyperglycemic coma due to diabetes mellitus without ketoacidosis (Acute) Hyperosmolar hyponatremia (Acute) Objective: GENERAL: cooperative HEENT: Atraumatic; moist oral mucosa EYES; Anicteric, Normal Conjunctiva NECK; supple, normal thyroid, RESPIRATORY: Diminished to auscultation CARDIOVASCULAR: Regular S1 S2, EXTREMITIES: No edema, no clubbing, MUSCULOSKELETAL: No Joint Tenderness; NEURO: Awake; no lateralizing signs. SKIN: No Rash PSYCH; Normal affect - Physical Exam Vital Signs Temp Pulse Resp BP Pulse Ox 96.0 F L 92 16 133/76 H 94 08/01/19 09:20 11/13/18 09:20 11/13/18 09:20 11/13/18 09:20 11/13/18 09:20 Oxygen Delivery Method Room Air Weight: 128.3 kg Body Mass Index (BMI) 44.3 Intake and Output for Last 24 Hours 11/11/18 11/12/18 11/13/18 23:59 23:59 23:59 Intake Total 1199.2 / 1199.2 4099 / 4099 644 / 644 Output Total 600 / 600 Balance 599.2 / 599.2 4099 / 4099 644 / 644 Microbiology Past 72 Hours 11/11/18 20:20 Urine Culture - Preliminary Urine, Clean Catch Presumptive E. coli Laboratory Tests Past 24 Hrs 11/13/18 05:45 Sodium 141 Potassium 3.4 L Chloride 107 Carbon Dioxide 26.0 Anion Gap 8 BUN 14 Creatinine 0.70 Estim Creat Clear Calc 78.96 Est GFR (MDRD) Af Amer 108 Est GFR (MDRD) Non-Af 89 BUN/Creatinine Ratio 20.0 Glucose 195 H Calcium 8.1 L POC Glucose 11/13/18 11/13/18 11/12/18 08:21 03:43 21:27 POC Glucose 188 H 206 H 352 H 11/12/18 11/12/18 16:42 11:34 POC Glucose 305 H 383 H Discharge Diet: 1800 Calorie Control Diet Home Medications: Medications to take at Discharge Acetaminophen [Tylenol Arthritis] 650 - 1,300 mg PO BID PRN PRN 11/11/18 Dulaglutide [Trulicity] 1.5 mg SQ WE 11/11/18 Duloxetine HCl 60 mg PO DAILY 11/11/18 Fexofenadine HCl 180 mg PO DAILY 11/11/18 Fluticasone 0.05% [Flonase Nasal [place]] 2 spry NASAL DAILY 11/11/18 Insulin Degludec [Tresiba Flextouch U-100] 62 units SQ DAILY 11/11/18 Levothyroxine Sodium 150 mcg PO DAILY 11/11/18 Losartan/Hydrochlorothiazide [Losartan-Hctz 100-25 mg Tab] 1 tab PO DAILY 11/11/18 Metoprolol(XL)Succ [Toprol Xl (Beta [place])] 25 mg PO QHS 11/11/18 Omeprazole/Sodium Bicarbonate [Omeprazole-Bicarb 40-1,100 Cap] 1 cap PO QHS 11/11/18 Simvastatin 80 mg PO QHS 11/11/18 Cephalexin [Keflex] 500 mg PO TID #15 cap 11/13/18 Insulin Aspart [Novolog Vial] 20 units SQ TIDCM #0 11/13/18 Insulin Glargine [Lantus SoloStar Pen] 62 units SUBCUT DAILY #14 pen 11/13/18 Insulin Lispro [Humalog KwikPen] 20 unit SUBCUT TIDCM #8 insuln.pen 11/13/18 Potassium Chloride [K-Dur] 20 meq PO BIDCM #20 tab 11/13/18 Following Prescrptions Were Given to Patient: Insulin Lispro [Humalog KwikPen] 20 unit SUBCUT TIDCM #8 insuln.pen Transmission Status: Sent to [facility] Potassium Chloride [K-Dur] 20 meq PO BIDCM #20 tab Transmission Status: Sent to [facility] Cephalexin [Keflex] 500 mg PO TID #15 cap Transmission Status: Pending to [id number] Insulin Glargine [Lantus SoloStar Pen] 62 units SUBCUT DAILY #14 pen Transmission Status: Sent to [facility] Primary Care Physician: Care Physician,No Primary [NON-STAFF] - Please follow up with your Primary Care Physician in: in 1-2 weeks in [place] Disposition: Home Minutes spent on discharge:: 45 Patient Condition:: Stable Medical Necessity - Tobacco Use Smoking Status: Former smoker Tobacco Use: Non-smoker Meaningful Use Info Meaningful Use Diagnoses (Choose all that apply): None applicable Code Visit Inpatient E&M: 49195 Disch Hosp
[2018-11-13 12:41] LABS: Bedside Glucose 169 mg/dL (70-110)
--- NOTE | 2018-11-13 14:29 | CASEMGMT ---
Per Polly DIETZ, pt's novolog is $8-10. Call to [facility] and per Humaira, Basaglar is $8.50 and Cephalexin is $3.40. 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 Pt discharged at that time. Aminah DIETZ CM
== END 2018-11-13 14:03 | disposition home or self-care (01) | DRG 638 ==
LOC: ED 18:15 → PCU 19:20
PROVIDERS: Internal Medicine; Physician Assistant; Admitting Provider Internal Medicine; Emergency Provider Emergency Medicine; Visit Provider Internal Medicine
DX: E11.01 Type 2 diabetes mellitus with hyperosmolarity with coma (principal); N30.00 Acute cystitis without hematuria; Z68.42 Body mass index [BMI] 45.0-49.9, adult; E87.1 Hypo-osmolality and hyponatremia; T38.3X6A Underdosing of insulin and oral hypoglycemic [antidiabetic] drugs, initial encounter; B96.20 Unspecified Escherichia coli [E. coli] as the cause of diseases classified elsewhere; B37.9 Candidiasis, unspecified; E66.01 Morbid (severe) obesity due to excess calories; E03.9 Hypothyroidism, unspecified; I10 Essential (primary) hypertension; E87.6 Hypokalemia; G47.33 Obstructive sleep apnea (adult) (pediatric); F41.8 Other specified anxiety disorders; K21.9 Gastro-esophageal reflux disease without esophagitis; K44.9 Diaphragmatic hernia without obstruction or gangrene; E78.49 Other hyperlipidemia; Z79.4 Long term (current) use of insulin; Z87.891 Personal history of nicotine dependence; E86.0 Dehydration; R13.10 Dysphagia, unspecified; Z90.710 Acquired absence of both cervix and uterus; Z83.3 Family history of diabetes mellitus
CPT/HCPCS: 36415; 80048; 81001; 82947; 82962; 85025; 87077; 87086; 87088; 87186; 93005; 94002; 94660; 97802; 99285; J7030; A4216

== ENCOUNTER 2024-02-22 15:20 | Inpatient (IN) | payer MEDICARE, SELFPAY ==
[2024-02-22 15:20] VITALS: BP 134/63; PULSE 78; RESP 19; TEMP 35.3; O2SAT 97; BMI 43.9
--- NOTE | 2024-02-22 15:40 | EX.ED.DYSGE1 ---
HPI <BRENNON Mireles - Last Filed: 02/22/24 17:22> History of Present Illness Chief Complaint: Hyperglycemia Narrative Narrative: Patient is a 68-year-old female history of obesity, GERD, hypothyroidism, CHF who presents to the [facility] for elevated blood sugar. Patient states that she has been taking her daily medication however secondary to moving [place] between [place], not having a PCP here, she has been unable to get her Trulicity. Patient states that she is thought she had a UTI, she then went to urgent care, they did confirm a UTI, however her blood sugar was over 550, so they referred her to the emergency department. Patient that she does have some increased thirst, increased urination, here for evaluation. Denies any chest pain or shortness of breath. PFS <BRENNON Mireles - Last Filed: 02/22/24 17:22> [facility] Home Medications ?Medication ?Instructions ?Recorded ?Last Taken ?Type acetaminophen 650 mg 650 - 1,300 mg PO BID PRN PRN Pain 11/11/18 11/11/18 History tablet,extended release dulaglutide 1.5 mg/0.5 mL 1.5 mg SQ WE diabetes 11/11/18 11/05/18 History subcutaneous pen injector duloxetine 60 mg capsule,delayed 60 mg PO DAILY pain 11/11/18 11/10/18 History release fexofenadine 180 mg tablet 180 mg PO DAILY allergies 11/11/18 11/11/18 History fluticasone propionate 50 2 spry NASAL DAILY allergies 11/11/18 11/10/18 History mcg/actuation nasal spray,suspension insulin degludec 100 unit/mL (3 62 units SQ DAILY diabetes 11/11/18 11/08/18 History mL) subcutaneous pen levothyroxine 150 mcg tablet 150 mcg PO DAILY thyroid 11/11/18 11/11/18 History losartan 100 1 tab PO DAILY blood pressure 11/11/18 11/11/18 History mg-hydrochlorothiazide 25 mg tablet metoprolol succinate 25 mg 25 mg PO QHS blood pressure 11/11/18 Unknown History tablet,extended release 24 hr omeprazole 40 mg-sodium 1 cap PO QHS reflux 11/11/18 11/10/18 History bicarbonate 1.1 gram capsule simvastatin 80 mg tablet 80 mg PO QHS cholesterol 11/11/18 11/10/18 History cephalexin 500 mg capsule 500 mg PO TID #15 caps 11/13/18 Unknown Rx insulin aspart U-100 100 unit/mL 20 units (0.2 mL) SQ TIDCM #8 vials 11/13/18 Unknown Rx subcutaneous solution insulin glargine 100 unit/mL (3 62 unit (0.62 mL) SQ QHS ##14 11/13/18 Unknown Rx mL) subcutaneous pen pen needle, diabetic, safety 30 ##1 11/13/18 Unknown Rx gauge x 1/3 potassium chloride 20 mEq 20 meq PO BIDCM #20 tabs 11/13/18 Unknown Rx tablet,extended release(part/cryst) Allergy/AdvReac Type Severity Reaction Status Date / Time ciprofloxacin (From Cipro) Allergy Anaphylaxis Verified 12/20/23 14:53 levofloxacin (From Levaquin) Allergy Anaphylaxis Verified 12/20/23 14:53 lisinopril AdvReac cough Verified 12/20/23 14:53 metformin AdvReac Diarrhea Verified 12/20/23 14:53 Social History Smoking Status: Former smoker ROS <BRENNON Mireles - Last Filed: 02/22/24 17:22> ROS ED ROS Narrative Constitutional: Negative for fever, chills, weight loss, weakness Eyes: Negative for vision loss, vision change, double vision ENT: Negative for any sore throat, ear pain, congestion Cardiovascular: Negative for any chest pain, tightness, palpitations Respiratory: Negative for any cough, sputum production, hemoptysis, dyspnea, dyspnea on exertion, orthopnea Gastrointestinal: Negative for any abdominal pain, nausea, vomiting, diarrhea, constipation, blood in stool, blood in vomit : Negative for any retention, blood in urine. Positive dysuria, urinary frequency Muscle skeletal: Negative for any neck pain, back pain Neurological: Negative for any headache, syncope, dizziness Skin: Negative for any rashes, itching, abrasions, lacerations Psychiatric: Negative for any depression, anxiety, stress, suicidal ideation, homicidal ideation Hematologic: Negative for any excessive bruising, easy bleeding EXAM <BRENNON Mireles - Last Filed: 02/22/24 17:22> Physical Exam Narrative Exam Narrative: Vital signs reviewed. Patient appears to be in no obvious distress, patient is slightly disheveled, patient does smell of urine. HEET: Head normocephalic atraumatic, TMs clear bilaterally. Posterior pharynx is clear, dry mucous membranes. Nares clear bilaterally. Neck: Supple with no lymphadenopathy or tenderness. No signs of meningismus. Cardiac: Regular rate and rhythm no murmurs gallops or rubs, equal peripheral pulses bilaterally. Respiratory: Lungs clear to auscultation bilaterally. No chest tenderness. Abdomen: Soft, nontender, nondistended. No abdominal bruit or pulsatile masses. No hepatosplenomegaly Extremities: No peripheral edema, no signs of gross trauma or deformity. Active full range of motion of all extremities. Neuro: Cranial nerves II through XII intact, no focal neurological deficits. Skin: Clean dry and intact with no rash, purpura, petechiae, vesicles or pustules. Backs/flank: No CVA tenderness, no midline spinal tenderness, no deformity. Psych: Normal mood and affect. No SI, HI or acute psychosis. Const Vital Signs: 02/22/24 15:20 02/22/24 15:41 Temperature 95.6 F L 98.1 F Temperature Source Temporal Oral Pulse Rate 78 78 Respiratory Rate 19 H 18 Blood Pressure 134/63 H 134/63 H Blood Pressure Mean 86 86 Pulse Ox 97 98 Oxygen Delivery Method Room Air Room Air <Dr. Samson Tse DO - Last Filed: 02/22/24 16:50> Physical Exam Const Vital Signs: 02/22/24 15:20 02/22/24 15:41 Temperature 95.6 F L 98.1 F Temperature Source Temporal Oral Pulse Rate 78 78 Respiratory Rate 19 H 18 Blood Pressure 134/63 H 134/63 H Blood Pressure Mean 86 86 Pulse Ox 97 98 Oxygen Delivery Method Room Air Room Air [facility] <BRENNON Mireles - Last Filed: 02/22/24 17:22> [facility] Lab Data Labs: Laboratory Results - last 24 hr 02/22/24 15:55 WBC 8.9 RBC 5.05 Hgb 14.4 Hct 43.3 MCV 85.7 MCH 28.5 MCHC 33.3 RDW Std Deviation 40.7 RDW Coeff of Shira 13.1 Plt Count 324 MPV 9.3 Immature Gran % (Auto) 0.500 Neut % (Auto) 67.8 Lymph % (Auto) 25.5 [place] % (Auto) 4.6 Eos % (Auto) 1.0 Baso % (Auto) 0.6 Absolute Neuts (auto) 6.0 Absolute Lymphs (auto) 2.26 Nucleated RBC % 0 Sodium 128 L Potassium 4.1 Chloride 90 L Carbon Dioxide 27.0 Anion Gap 11 BUN 26 H Creatinine 1.53 H Estim Creat Clear Calc 46.58 Est GFR (MDRD) Af Amer 43 L Est GFR (MDRD) Non-Af 36 L BUN/Creatinine Ratio 17.0 Glucose 634 H* Lactic Acid 4.5 H* Calcium 9.3 Total Bilirubin 0.40 AST 15 ALT 25 Alkaline Phosphatase 103 Total Protein 7.8 Albumin 3.8 Globulin 4.0 Albumin/Globulin Ratio 1.0 Urine Color Straw Urine Clarity Sl. Cloudy Urine pH 6.5 Ur Specific [place] 1.005 Urine Protein Negative Urine Glucose (UA) 1000 H Urine Ketones Negative Urine Occult Blood 10 H Urine Nitrite Positive H Urine Bilirubin Negative Urine Urobilinogen Normal Ur Leukocyte Esterase 500 H Urine RBC 0 SEEN Urine WBC >100 SEEN Ur Squamous Epith Cells 25-50 SEEN Urine Bacteria 2+ Urine Mucus 0 SEEN Urine Yeast 1+ Acetone Level NEGATIVE ABG Data ABG results: ABG 02/22/24 16:02 Specimen Type CAYDEN Sample Site Not entered VBG pH 7.35 VBG pO2 41 H VBG HCO3 28 H VBG Total CO2 29 VBG O2 Sat (Calc) 73 H VBG Base Excess 2 POC Mix VBG pCO2 Pt Tmp 50.1 O2 Delivery Device Not entered Treatment and Re-Evaluation :: Differential diagnosis includes however is not limited to: Hyperglycemia, sepsis, UTI, DKA, dehydration, electrolyte abnormality, dehydration Patient appears generally well, vital signs are stable, patient is nontoxic-appearing. Presenting to the emergency department for UTI-like symptoms as well as hyperglycemia. Patient will receive a repeat urinalysis, basic laboratory values including acetone and lactic acid as well as a VBG. Patient will receive 1 L of normal saline. I do not believe the patient is in DKA, patient after IV fluids will have repeat sugar drawn. Patient will need to be reevaluated. Patient CBC was unremarkable, chemistries show hyponatremia with a sodium 128, this is reactive to the patient's elevated blood glucose of 634, lactic acid was 4.5, patient's creatinine is 1.53, significantly elevated from 0.70 in 2019. Patient does have a UTI with 2+ bacteria greater than 100 white blood cells, 5-year leukocytes, positive nitrites. This we sent for culture started on IV Rocephin. Patient's VBG was unremarkable. No evidence of any DKA, negative acetone. However secondary the patient's elevated blood sugar, UTI, noncompliance, I do believe the patient benefit from being in the hospital specially with no one to closely follow-up. I spoke with hospitalist who is in agreement. Patient stable for admission <Dr. Samson Tse, DO - Last Filed: 02/22/24 16:50> [facility] MDM Narrative Medical decision making narrative: I have personally performed a face to face assessment of the patient and have reviewed the AMARJIT Note. I performed a substantive portion of the visit including all aspects of the following. My louie findings include: History is [patient presents to the emergency department from urgent care for concern over elevated blood sugars. Patient is a known type II diabetic and has been taking short acting insulin as well as long-acting insulin but is but been without her Trulicity for several months. Patient states she is not been very good with her diet. She went to urgent care because she thought she was getting a UTI and that they did affirm this for her. Patient denies any fevers or chills or sweats. She has had no vomiting. She does complain of some mild low back pain. Patient scheduled to follow-up with Nikki soria in clinic next week.] Exam is [HEENT-PERRLA, EOMI. Cranial nerves II through XII grossly intact. TMs clear. Mucous membranes moist. No adenopathy. Cardiovascular-regular rate and rhythm without murmur or ectopy Lungs-clear to auscultation, chest wall stable without crepitus or subcu emphysema Abdomen-normoactive bowel sounds, soft, nontender, no rebound or rigidity, no peritoneal signs. Extremities-intact ?4, normal range of motion, normal pulses, atraumatic] Medical Decison Making [patient presents with hyperglycemia and symptoms of UTI. Clinically she looks well. CBC with differential obtained showed a white count of 8.9 with hemoglobin 14 and platelet count of 324. Chemistries show low sodium of 128 with BUN of 26 and creatinine 1.53 with significant change from prior and consistent with ASIM. Glucose also elevated 634 and lactate was elevated at 4.5. LFTs unremarkable. Urinalysis positive for UTI. Acetone was negative. Patient was ordered Rocephin IV and given 15 units subcu of regular insulin. Case will be discussed with hospitalist to evaluate patient for admission. She will be given IV fluids normal saline.] Other additions or changes: [None] Lab Data Labs: Laboratory Results - last 24 hr 02/22/24 15:55 WBC 8.9 RBC 5.05 Hgb 14.4 Hct 43.3 MCV 85.7 MCH 28.5 MCHC 33.3 RDW Std Deviation 40.7 RDW Coeff of Shira 13.1 Plt Count 324 MPV 9.3 Immature Gran % (Auto) 0.500 Neut % (Auto) 67.8 Lymph % (Auto) 25.5 [place] % (Auto) 4.6 Eos % (Auto) 1.0 Baso % (Auto) 0.6 Absolute Neuts (auto) 6.0 Absolute Lymphs (auto) 2.26 Nucleated RBC % 0 Sodium 128 L Potassium 4.1 Chloride 90 L Carbon Dioxide 27.0 Anion Gap 11 BUN 26 H Creatinine 1.53 H Estim Creat Clear Calc 46.58 Est GFR (MDRD) Af Amer 43 L Est GFR (MDRD) Non-Af 36 L BUN/Creatinine Ratio 17.0 Glucose 634 H* Lactic Acid 4.5 H* Calcium 9.3 Total Bilirubin 0.40 AST 15 ALT 25 Alkaline Phosphatase 103 Total Protein 7.8 Albumin 3.8 Globulin 4.0 Albumin/Globulin Ratio 1.0 Urine Color Straw Urine Clarity Sl. Cloudy Urine pH 6.5 Ur Specific [place] 1.005 Urine Protein Negative Urine Glucose (UA) 1000 H Urine Ketones Negative Urine Occult Blood 10 H Urine Nitrite Positive H Urine Bilirubin Negative Urine Urobilinogen Normal Ur Leukocyte Esterase 500 H Urine RBC 0 SEEN Urine WBC >100 SEEN Ur Squamous Epith Cells 25-50 SEEN Urine Bacteria 2+ Urine Mucus 0 SEEN Urine Yeast 1+ Acetone Level NEGATIVE ABG Data ABG results: ABG 02/22/24 16:02 Specimen Type CAYDEN Sample Site Not entered VBG pH 7.35 VBG pO2 41 H VBG HCO3 28 H VBG Total CO2 29 VBG O2 Sat (Calc) 73 H VBG Base Excess 2 POC Mix VBG pCO2 Pt Tmp 50.1 O2 Delivery Device Not entered Discharge Plan Dx/Rx/DC Orders Clinical Impression: Acute UTI, Acute hyponatremia, ASIM (acute kidney injury), Hyperglycemia Disposition Disposition: Acute Care Hospital [facility]
[2024-02-22 15:41] VITALS: BP 134/63; PULSE 78; RESP 18; TEMP 36.7; O2SAT 98
[2024-02-22] MEDS: 0.9% Normal Saline (1000mL) 1,000 ML 999 ML IV (16:00)
[2024-02-22 16:06] LABS: Blood Gas Specimen Type VEN; O2 Delivery Device Not entered; SITE Not entered; VBG BASE EXCESS 2 mmol/L (-1.0-3.5); VBG Bicarbonate 28 mmol/L (22-26); VBG PO2 41 mmHg (25-40); VBG SO2 73 % (50-70); VBG TCO2 29 mmol/L (23-33); VBG pCO2 50.1 mmHg (41-51); VBG pH 7.35 (7.32-7.42)
[2024-02-22 16:16] LABS: Mucous, Urine 0 SEEN /hpf (<or=2+); Red Blood Cells-Urine 0 SEEN /hpf (0-5)
[2024-02-22 16:17] LABS: Absolute Lymphocyte Count 2.26 X10^3/uL (0.83-4.51); Basophil# 0.05 X10^3/uL; Basophil% 0.6 % (0-1); Eosinophil# 0.09 X10^3/uL; Hematocrit 43.3 % (37-47); Hemoglobin 14.4 g/dL (12.0-15.0); Lymphocyte # 2.26 X10^3/ul (0.83-4.51); Lymphocyte % 25.5 % (19-41); Mean Corp Hgb Conc 33.3 g/dL (32-36); Mean Corpuscular Hgb 28.5 pg (27.0-32.0); Mean Corpuscular Volume 85.7 fL (81-99); Mean Platelet Vol. 9.3 fl (6.2-12.0); Monocyte# 0.41 X10^3/uL; Monocyte% 4.6 % (0-10); NRBC Flagged by Analyzer 0 % (0-5); Neutrophil # 6.02 X10^3/uL (2.7-7.7); Neutrophil % 67.8 % (47-70); Platelet Count 324 K/mm3 (150-450); RBC Distribution Width CV 13.1 % (11.6-14.6); RBC Distribution Width SD 40.7 fl (35.1-43.9); Red Blood Count 5.05 M/mm3 (4.2-5.4); White Blood Count 8.9 K/mm3 (4.4-11.0)
[2024-02-22 16:19] LABS: Color, Urine Straw (Yellow); Glucose, Dipstick 1000 mg/dl (Normal); Ketone-Dipstick Negative (Negative); Leukocyte Esterase-Dipstick 500 /ul (Negative); Nitrite-Dipstick Positive (Negative); Occult Blood-Urine 10 /ul (Negative); Protein-Dipstick Negative (Negative); Specific Gravity, Urine 1.005 (1.002-1.030); Urine Bilirubin Dipstick Negative (Negative); Urine Clarity Sl. Cloudy (Clear); Urine Urobilinogen Normal (Normal); Urine pH 6.5 (5.0 - 8.0)
[2024-02-22 16:38] LABS: Bacteria 2+ /hpf (None Seen); Squamous Epithelial Cells - UA 25-50 SEEN /hpf (5-10); White Blood Cells >100 SEEN /hpf (0-5); Yeast-Urine 1+ /hpf (None Seen)
[2024-02-22 16:46] LABS: AST(SGOT) 15 U/L (15-37); Alanine Aminotransfer ALT/SGPT 25 U/L (13-56); Albumin, Serum 3.8 g/dL (3.2-5.0); Alkaline Phosphatase 103 U/L (45-117); Anion Gap 11 (5-15); BUN 26 mg/dL (7-18); Calcium,Total 9.3 mg/dL (8.5-10.1); Chloride 90 mmol/L (98-107); Creatinine, Serum 1.53 mg/dL (0.55-1.02); EST Glomerular Filtration Rate 36 mL/min (>60); Est Glom Filt Rate - Afr Amer 43 mL/min (>60); Estimated Creatinine Clearance 46.58 ml/min; Glucose 634 mg/dL (74-106); Lactic Acid 4.5 mmol/L (0.4-1.9); Potassium 4.1 mmol/L (3.5-5.1); Protein, Total 7.8 g/dL (6.4-8.2); Sodium Level 128 mmol/L (136-145)
[2024-02-22] MEDS: Insulin Lispro 100 UNIT/ML INSULN.PEN 15 UNIT SC (17:01)
[2024-02-22] MEDS: Ceftriaxone 1 GM/50 ML BAG IV (17:02)
--- NOTE | 2024-02-22 17:12 | PCM.HP.STD ---
HPI - General General Date of Admission: 02/22/24 Date of Service: 02/22/24 Chief Complaint: Hyperglycemia HPI Narrative TELLY GARCIA, is a 68 F with past medical history of poorly controlled type 2 diabetes, GERD, hiatal hernia, morbid obesity, hypothyroidism, family combined hyperlipidemia,hypertension, who presents to the ED with concern regarding elevated blood sugars. She recently moved from [place] and does not have a primary care provider. Has not been able to get her medications [Trulicity] due to the same reason. She has been having social issues for the last 1 year, recently her and had to move out of [place] due to financial instability. Has not been able to get her insulin supply to her because she does not have a stable address. Currently living with her daughter in law in [place]. Initially she thought she has urinary tract infection based on dysuria and polyuria, went to the urgent care facility and was found to have blood sugars ranging in 500 at the urgent care facility. Referred to the ED from the urgent care facility Laboratory evaluation in the ED showed Hemoglobin 14.4, WBC 8.9, platelet 324, pH of 7.3, sodium 128, chloride 90, BUN 26, creatinine 1.5, glucose 684, lactic acid 4.5, total bilirubin 0.4, urine glucose thousand, urine nitrate positive ketone negative leukoesterase 500 more than 100 WBCs present, serum acetone was negative. In the ED she was started on ceftriaxone and received 15 units of human lispro and also 1 L of sodium chloride. [facility] Medical History (Updated 02/22/24 @ 17:22 by Aye Barragan) Diabetes Arthritis Home Medications ?Medication ?Instructions ?Recorded ?Last Taken ?Type acetaminophen 650 mg 650 - 1,300 mg PO BID PRN PRN Pain 11/11/18 11/11/18 History tablet,extended release dulaglutide 1.5 mg/0.5 mL 1.5 mg SQ WE diabetes 11/11/18 11/05/18 History subcutaneous pen injector duloxetine 60 mg capsule,delayed 60 mg PO DAILY pain 11/11/18 11/10/18 History release fexofenadine 180 mg tablet 180 mg PO DAILY allergies 11/11/18 11/11/18 History fluticasone propionate 50 2 spry NASAL DAILY allergies 11/11/18 11/10/18 History mcg/actuation nasal spray,suspension insulin degludec 100 unit/mL (3 62 units SQ DAILY diabetes 11/11/18 11/08/18 History mL) subcutaneous pen levothyroxine 150 mcg tablet 150 mcg PO DAILY thyroid 11/11/18 11/11/18 History losartan 100 1 tab PO DAILY blood pressure 11/11/18 11/11/18 History mg-hydrochlorothiazide 25 mg tablet metoprolol succinate 25 mg 25 mg PO QHS blood pressure 11/11/18 Unknown History tablet,extended release 24 hr omeprazole 40 mg-sodium 1 cap PO QHS reflux 11/11/18 11/10/18 History bicarbonate 1.1 gram capsule simvastatin 80 mg tablet 80 mg PO QHS cholesterol 11/11/18 11/10/18 History cephalexin 500 mg capsule 500 mg PO TID #15 caps 11/13/18 Unknown Rx insulin aspart U-100 100 unit/mL 20 units (0.2 mL) SQ TIDCM #8 vials 11/13/18 Unknown Rx subcutaneous solution insulin glargine 100 unit/mL (3 62 unit (0.62 mL) SQ QHS ##14 11/13/18 Unknown Rx mL) subcutaneous pen pen needle, diabetic, safety 30 ##1 11/13/18 Unknown Rx gauge x 1/3 potassium chloride 20 mEq 20 meq PO BIDCM #20 tabs 11/13/18 Unknown Rx tablet,extended release(part/cryst) dulaglutide 1.5 mg/0.5 mL 1.5 mg subcut QWEEK 02/22/24 Unknown History subcutaneous pen injector (Trulicity) insulin aspart U-100 100 unit/mL 15 unit subcut TID 02/22/24 Unknown History (3 mL) subcutaneous pen (Novolog FlexPen U-100 Insulin aspart) insulin degludec 100 unit/mL (3 120 unit subcut QDAY 02/22/24 Unknown History mL) subcutaneous pen (Tresiba FlexTouch U-100 insulin) losartan 50 mg-hydrochlorothiazide 1 tab PO DAILY 02/22/24 Unknown History 12.5 mg tablet Allergy/AdvReac Type Severity Reaction Status Date / Time ciprofloxacin (From Cipro) Allergy Anaphylaxis Verified 12/20/23 14:53 levofloxacin (From Levaquin) Allergy Anaphylaxis Verified 12/20/23 14:53 lisinopril AdvReac cough Verified 12/20/23 14:53 metformin AdvReac Diarrhea Verified 12/20/23 14:53 methadone AdvReac Other Verified 02/22/24 17:38 Social History Smoking Status: Never smoker ROS Review of Systems ROS Unobtainable: Denies due to encephalopathy, due to endotracheal tube, due to mental condition, due to mental status or other Constitutional Constitutional: Reports change in weight, fatigue, malaise and weakness Eyes Eyes: Denies blurry vision, change in eye color, change in vision, discharge from eye(s), double vision, erythema, eye pain, loss of vision or other ENT HEENT: Denies abnormal hearing, dysphagia, ear pain, epistaxis, headache(s), hearing loss, nasal congestion, nasal discharge, post nasal drip, sinus pressure, sore throat or other Cardiovascular Cardiovascular: Denies chest pain, claudication, dyspnea on exertion, edema, lightheadedness, orthopnea, palpitations, paroxysmal nocturnal dyspnea, rapid heart rate, syncope or other Respiratory/Chest Respiratory/Chest: Denies cough, dyspnea, excessive phlegm production, hemoptysis, productive cough, shortness of breath at rest, shortness of breath with exertion, wheezing or other Gastrointestinal Gastrointestinal: Denies abdominal pain, coffee ground emesis, constipation, diarrhea, dyspepsia, hematemesis, hematochezia, loose stools, melena, nausea, vomiting or other Genitourinary Genitourinary: Denies burning urination, difficulty urinating, dysuria, hematuria, nocturia, urinary frequency, urinary hesitancy, urinary incontinence, urinary urgency or other Musculoskeletal Musculoskeletal: Reports arthralgias Neurologic Neurologic: Denies abnormal gait, abnormal speech, confusion, disequilibrium, dizziness, focal weakness, headache(s), numbness, paresthesias, seizure-like activity, seizures, syncope, tingling, tremor(s) or other Vital Signs Vital Signs Vital Signs: 02/22/24 15:20 02/22/24 15:41 Temperature 95.6 F L 98.1 F Temperature Source Temporal Oral Pulse Rate 78 78 Respiratory Rate 19 H 18 Blood Pressure 134/63 H 134/63 H Blood Pressure Mean 86 86 Pulse Ox 97 98 Oxygen Delivery Method Room Air Room Air Weight Weight: 272 lb 8 oz Body Mass Index (BMI) 43.9 Physical Exam Const alert and oriented x3 Neck no lymphadenopathy Resp normal respiratory effort Cardio regular rate and regular rhythm GI soft to palpation and non-tender Extremity normal to inspection Neuro oriented x3 Results Medical Records Data Attestation: I reviewed the patient's medical records Lab / Micro Data Attestation: I reviewed the patient's lab results. 02/22/24 15:55 02/22/24 15:55 Labs: Laboratory Results - last 24 hr 02/22/24 15:55: WBC 8.9, RBC 5.05, Hgb 14.4, Hct 43.3, MCV 85.7, MCH 28.5, MCHC 33.3, RDW Std Deviation 40.7, RDW Coeff of Shira 13.1, Plt Count 324, MPV 9.3, Immature Gran % (Auto) 0.500, Neut % (Auto) 67.8, Lymph % (Auto) 25.5, [place] % (Auto) 4.6, Eos % (Auto) 1.0, Baso % (Auto) 0.6, Absolute Neuts (auto) 6.0, Absolute Lymphs (auto) 2.26, Nucleated RBC % 0, Sodium 128 L, Potassium 4.1, Chloride 90 L, Carbon Dioxide 27.0, Anion Gap 11, BUN 26 H, Creatinine 1.53 H, Estim Creat Clear Calc 46.58, Est GFR (MDRD) Af Amer 43 L, Est GFR (MDRD) Non-Af 36 L, BUN/Creatinine Ratio 17.0, Glucose 634 H*, Lactic Acid 4.5 H*, Calcium 9.3, Total Bilirubin 0.40, AST 15, ALT 25, Alkaline Phosphatase 103, Total Protein 7.8, Albumin 3.8, Globulin 4.0, Albumin/Globulin Ratio 1.0, Urine Color Straw, Urine Clarity Sl. Cloudy, Urine pH 6.5, Ur Specific [place] 1.005, Urine Protein Negative, Urine Glucose (UA) 1000 H, Urine Ketones Negative, Urine Occult Blood 10 H, Urine Nitrite Positive H, Urine Bilirubin Negative, Urine Urobilinogen Normal, Ur Leukocyte Esterase 500 H, Urine RBC 0 SEEN, Urine WBC >100 SEEN, Ur Squamous Epith Cells 25-50 SEEN, Urine Bacteria 2+, Urine Mucus 0 SEEN, Urine Yeast 1+, Acetone Level NEGATIVE ABG Data ABG results: ABG 02/22/24 16:02 Specimen Type CAYDEN Sample Site Not entered VBG pH 7.35 VBG pO2 41 H VBG HCO3 28 H VBG Total CO2 29 VBG O2 Sat (Calc) 73 H VBG Base Excess 2 POC Mix VBG pCO2 Pt Tmp 50.1 O2 Delivery Device Not entered Assessment & Plan Assessment/Plan (1) Hyperglycemia: PLAN: Plan 68-year-old female, with history of morbid obesity, type 2 diabetes, hypertension, presents to the ED with concerns regarding dysuria and was found to have hyperglycemia. There is no features of ketosis at this time. The likely reason for her hyperglycemia is noncompliance with dietary and medication changes due to recent social concerns. #Urinary tract infection: -Urine cultures pending -Continue ceftriaxone 1 g daily #Poorly controlled type II diabetes: -Poorly controlled due to recent financial instability, social issues -To be started on insulin sliding scale while admitted to recalibrate her insulin requirement -Nutrition counseling -Will hold off her home regimen at this time as she has not been taking insulin for a while -Case management for discharge planning #Hypothyroidism: -Serum TSH -Continue home levothyroxine 150 mcg daily #Hypertension: -continue home medications with metoprolol, losartan, hydrochlorothiazide -Close monitoring while admitted #Dyslipidemia: -Continue home simvastatin 80 mg at bedtime #GERD: Continue omeprazole #DVT prophylaxis: -Enoxaparin 40 mg twice daily Charges/Coding Visit Charges Inpatient E&M: 94873 Init Hosp L2
[2024-02-22 17:20] VITALS: BP 136/50; PULSE 75; RESP 18; TEMP 36.6; O2SAT 93
[2024-02-22 19:17] VITALS: BMI 44.1
[2024-02-22 20:13] LABS: Reflex Lactate? Y
[2024-02-22 20:24] LABS: Bedside Glucose 339 mg/dL (74-106)
[2024-02-22 20:28] VITALS: BP 152/74; PULSE 71; RESP 16; TEMP 36.4; O2SAT 95
[2024-02-22 20:39] VITALS: PULSE 71
[2024-02-22] MEDS: Metoprolol(XL)Succ 25 MG Tablet PO (20:39)
[2024-02-22] MEDS: Insulin Lispro 100 UNIT/ML INSULN.PEN SC (20:39)
[2024-02-22] MEDS: Pantoprazole Sodium 40 MG Tablet PO (20:39)
[2024-02-22] MEDS: Atorvastatin Calcium 40 MG Tablet PO (20:39)
[2024-02-22] MEDS: Enoxaparin 40 MG/0.4 ML Syringe SC (20:39)
[2024-02-22] MEDS: Nystatin Powder 15gm Bottle 1 APPLIC TOPICAL (20:56)
[2024-02-22 21:20] LABS: Lactic Acid 2.1 mmol/L (0.4-1.9)
[2024-02-22] MEDS: MELATONIN 3 MG TABLET 6 MG PO (22:36)
[2024-02-22] MEDS: Acetaminophen 325 MG Tablet 650 MG PO (22:37)
[2024-02-22] MEDS: Arthritis Pain Compound 60 CLICK TUBE TOPICAL (22:37)
[2024-02-22 22:39] VITALS: BP 113/62; PULSE 65; RESP 16; TEMP 36.5; O2SAT 93
[2024-02-23 04:25] VITALS: BP 119/52; PULSE 69; RESP 16; TEMP 36.6; O2SAT 98
[2024-02-23] MEDS: Levothyroxine 150 MCG Tablet PO (04:29)
[2024-02-23] MEDS: Acetaminophen 325 MG Tablet 650 MG PO (04:35)
[2024-02-23] MEDS: Arthritis Pain Compound 60 CLICK TUBE TOPICAL ×2 (04:39→17:21)
[2024-02-23 05:32] LABS: Absolute Lymphocyte Count 2.97 X10^3/uL (0.83-4.51); Absolute Neutrophil Count 3.4 X10^3/uL (2.0-7.7); Basophil# 0.03 X10^3/uL; Basophil% 0.4 % (0-1); Eosinophil# 0.19 X10^3/uL; Eosinophils% 2.7 % (0-5); Lymphocyte # 2.97 X10^3/ul (0.83-4.51); Lymphocyte % 42.4 % (19-41); Mean Corp Hgb Conc 33.3 g/dL (32-36); Mean Corpuscular Hgb 28.5 pg (27.0-32.0); Mean Corpuscular Volume 85.5 fL (81-99); Mean Platelet Vol. 9.3 fl (6.2-12.0); Monocyte# 0.41 X10^3/uL; Monocyte% 5.9 % (0-10); NRBC Flagged by Analyzer 0 % (0-5); Neutrophil # 3.38 X10^3/uL (2.7-7.7); Neutrophil % 48.3 % (47-70); Platelet Count 274 K/mm3 (150-450); RBC Distribution Width CV 13.2 % (11.6-14.6); RBC Distribution Width SD 41.2 fl (35.1-43.9); Red Blood Count 4.56 M/mm3 (4.2-5.4)
[2024-02-23 05:40] LABS: International Normalized Ratio 1.1; Prothrombin Time (Protime)PT. 13.9 SECONDS (11.7-14.9)
[2024-02-23 06:13] LABS: AST(SGOT) 14 U/L (15-37); Alanine Aminotransfer ALT/SGPT 18 U/L (13-56); Albumin, Serum 3.2 g/dL (3.2-5.0); Alkaline Phosphatase 82 U/L (45-117); Anion Gap 11 (5-15); BUN 25 mg/dL (7-18); BUN/Creat Ratio 20.3 RATIO (10-20); Bilirubin, Direct 0.13 mg/dL (0.00-0.30); Calcium,Total 8.8 mg/dL (8.5-10.1); Chloride 97 mmol/L (98-107); Creatinine, Serum 1.23 mg/dL (0.55-1.02); EST Glomerular Filtration Rate 46 mL/min (>60); Est Glom Filt Rate - Afr Amer 56 mL/min (>60); Estimated Creatinine Clearance 58.07 ml/min; Globulin 3.3 g/dL (2.2-4.2); Glucose 290 mg/dL (74-106); Magnesium 1.8 mg/dL (1.6-2.6); Phosphorus 3.4 mg/dL (2.5-4.9); Potassium 3.4 mmol/L (3.5-5.1); Protein, Total 6.5 g/dL (6.4-8.2); Sodium Level 133 mmol/L (136-145)
[2024-02-23] MEDS: Insulin Lispro 100 UNIT/ML INSULN.PEN SC ×4 (06:34→22:19)
[2024-02-23 06:54] LABS: Bedside Glucose 367 mg/dL (74-106)
--- NOTE | 2024-02-23 08:57 | PCM.PN.HOSP ---
Reason for Visit Reason for Visit: Hyperglycemia Subjective Subjective Patient evidently had not been able to get her medications as she is a new resident of [place] moving here from [place] and does not have a primary care physician. There are considerable social barriers in the last 12 months including a recent divorce and move out of [place] due to financial instability. She currently is living with her [id number]. Patient states she is feeling much better today than yesterday when her blood sugars were so high. States she has previously been diagnosed with HERMINIA but not been able to utilize a mask as of lately but is willing to get retested. States she intends to stay in the area and needs a primary care physician. Objective Data Objective Data Vital Signs: Vital Signs Temp Pulse Resp BP Pulse Ox O2 Del Method O2 Flow Rate 97.8 F 69 16 119/52 L 98 Nasal Cannula 2 02/23/24 04:25 02/23/24 04:25 02/23/24 04:25 02/23/24 04:25 02/23/24 04:25 02/23/24 04:25 02/23/24 04:25 Oxygen Flow Rate (L/min) 2 Oxygen Delivery Method Nasal Cannula Weight: 124.103 kg Body Mass Index (BMI) 44.1 Intake & Output: Intake and Output for Last 24 Hours 02/21/24 02/22/24 02/23/24 23:59 23:59 23:59 Intake Total 1050 / 1350 500 / 500 Balance 1050 / 1350 500 / 500 Lab / Micro Data 02/23/24 04:23 02/23/24 04:23 Labs: Laboratory Results - last 24 hr 02/22/24 15:55: WBC 8.9, RBC 5.05, Hgb 14.4, Hct 43.3, MCV 85.7, MCH 28.5, MCHC 33.3, RDW Std Deviation 40.7, RDW Coeff of Shira 13.1, Plt Count 324, MPV 9.3, Immature Gran % (Auto) 0.500, Neut % (Auto) 67.8, Lymph % (Auto) 25.5, Ada % (Auto) 4.6, Eos % (Auto) 1.0, Baso % (Auto) 0.6, Absolute Neuts (auto) 6.0, Absolute Lymphs (auto) 2.26, Nucleated RBC % 0, Sodium 128 L, Potassium 4.1, Chloride 90 L, Carbon Dioxide 27.0, Anion Gap 11, BUN 26 H, Creatinine 1.53 H, Estim Creat Clear Calc 46.58, Est GFR (MDRD) Af Amer 43 L, Est GFR (MDRD) Non-Af 36 L, BUN/Creatinine Ratio 17.0, Glucose 634 H*, Lactic Acid 4.5 H*, Calcium 9.3, Total Bilirubin 0.40, AST 15, ALT 25, Alkaline Phosphatase 103, Total Protein 7.8, Albumin 3.8, Globulin 4.0, Albumin/Globulin Ratio 1.0, Urine Color Straw, Urine Clarity Sl. Cloudy, Urine pH 6.5, Ur Specific [place] 1.005, Urine Protein Negative, Urine Glucose (UA) 1000 H, Urine Ketones Negative, Urine Occult Blood 10 H, Urine Nitrite Positive H, Urine Bilirubin Negative, Urine Urobilinogen Normal, Ur Leukocyte Esterase 500 H, Urine RBC 0 SEEN, Urine WBC >100 SEEN, Ur Squamous Epith Cells 25-50 SEEN, Urine Bacteria 2+, Urine Mucus 0 SEEN, Urine Yeast 1+, Acetone Level NEGATIVE 02/22/24 20:02: POC Glucose 339 H 02/22/24 20:39: Lactic Acid 2.1 H* 02/23/24 04:23: WBC 7.0, RBC 4.56, Hgb 13.0, Hct 39.0, MCV 85.5, MCH 28.5, MCHC 33.3, RDW Std Deviation 41.2, RDW Coeff of Shira 13.2, Plt Count 274, MPV 9.3, Immature Gran % (Auto) 0.300, Neut % (Auto) 48.3, Lymph % (Auto) 42.4 H, Ada % (Auto) 5.9, Eos % (Auto) 2.7, Baso % (Auto) 0.4, Absolute Neuts (auto) 3.4, Absolute Lymphs (auto) 2.97, Nucleated RBC % 0, PT 13.9, INR 1.1, Sodium 133 L, Potassium 3.4 L, Chloride 97 L, Carbon Dioxide 26.0, Anion Gap 11, BUN 25 H, Creatinine 1.23 H, Estim Creat Clear Calc 58.07, Est GFR (MDRD) Af Amer 56 L, Est GFR (MDRD) Non-Af 46 L, BUN/Creatinine Ratio 20.3 H, Glucose 290 H, Calcium 8.8, Phosphorus 3.4, Magnesium 1.8, Total Bilirubin 0.50, Direct Bilirubin 0.13, AST 14 L, ALT 18, Alkaline Phosphatase 82, Total Protein 6.5, Albumin 3.2, Globulin 3.3, Albumin/Globulin Ratio 1.0, TSH 11.700 H 02/23/24 06:33: POC Glucose 367 H ABG Data ABG results: ABG 02/22/24 16:02 Specimen Type CAYDEN Sample Site Not entered VBG pH 7.35 VBG pO2 41 H VBG HCO3 28 H VBG Total CO2 29 VBG O2 Sat (Calc) 73 H VBG Base Excess 2 POC Mix VBG pCO2 Pt Tmp 50.1 O2 Delivery Device Not entered Physical Exam Const alert, oriented x3, no apparent distress and well nourished; Negative for average body habitus or healthy appearing Constitutional Narrative: Morbidly obese, white female, lying in bed napping but awakens easily, appears comfortable, nontoxic HEENT head/scalp atraumatic and moist oral mucous membranes HEENT Narrative: Mallampati 3-4, no thrush Head and Scalp: normocephalic Resp normal respiratory effort, no retractions, no use of accessory muscles and clear to auscultation bilaterally Auscultation: Negative for rales, rhonchi or wheezes Cardio regular rate, regular rhythm, S1 normal heart sound, S2 normal heart sound, no murmurs, no rub, no gallops and no clicks Cardio Narrative: Distant due to body habitus GI normal to inspection, nondistended, normoactive bowel sounds, soft to palpation and non-tender GI Narrative: Large protuberant abdomen Extremity no clubbing, cyanosis or edema Extremity Narrative: Pedal pulses are 2+ Neuro oriented x3, moves all extremities and no focal motor deficits Speech: speech normal Psych affect normal Psych Narrative: Very pleasant, appreciative, interacts appropriately Assessment & Plan Assessment/Plan (1) Hyperglycemia: (2) Hypokalemia: (3) Lactic acidosis: (4) Dehydration: (5) Acute UTI: (6) Elevated serum creatinine: PLAN: Plan Gram-negative UTI -Highly suspicious of urinary tract infection and feel that this is likely given her hyperglycemia making her urine an ideal environment for bacterial growth -Cultures pending but preliminary shows gram-negative almaz -Continue antibiotics as ordered with ceftriaxone Elevated serum creatinine secondary to dehydration -Baseline unknown therefore unable to say for sure that this is ASIM -Highly suspect dehydration with hyperglycemia likely causing polyuria and polydipsia -Will have to trend to ascertain baseline -Work on improving glycemic control -Will give 1 more liter of IV fluids at 100 cc/h and reevaluate lab in a.m. -Avoid nephrotoxins as able -Hold home diuretic Lactic acidosis -Suspect multifactorial related to dehydration, elevated serum creatinine and UTI -Highly doubt this is indicative of sepsis -Trended down quickly with IV fluids Hypokalemia -P.o. potassium placement given -Repeat lab in a.m. -Check a.m. magnesium level [id number] -Patient has not had her home medications due to financial constraints and other social issues -Previously was on Trulicity 1.5 mg weekly, Tresiba 120 mg daily, and NovoLog 15 units 3 times daily -Cardiac/carb controlled diet -Will give Levemir 40 units daily and reevaluate in a.m. -Sliding scale only for now but highly anticipate that she will need scheduled Humalog with meals -Will need to find PCP after discharge -Consider follow-up with endocrinology -Hemoglobin A1c pending for a.m. 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
[2024-02-23 09:52] VITALS: BP 108/42; PULSE 68; RESP 18; TEMP 36.9; O2SAT 94
[2024-02-23] MEDS: Nystatin Powder 15gm Bottle 1 APPLIC TOPICAL ×2 (09:56→22:13)
[2024-02-23] MEDS: Enoxaparin 40 MG/0.4 ML Syringe SC ×2 (09:56→22:12)
[2024-02-23] MEDS: DULoxetine Hcl 60 MG Capsule PO (09:56)
[2024-02-23] MEDS: FLU VACCINE **HIGH DOSE** TV 24-25 180 MCG/0.5 ML SYRINGE IM (09:58)
[2024-02-23] MEDS: 0.9% Saline Lock 10 ML Syringe IV (10:03)
[2024-02-23] MEDS: Ceftriaxone 1 GM/50 ML BAG IV (10:06)
[2024-02-23 11:44] LABS: Bedside Glucose 351 mg/dL (74-106)
[2024-02-23] MEDS: Insulin Glargine-YFGN 100 UNIT/ML Pen 40 UNIT SC (12:51)
[2024-02-23 15:41] VITALS: BP 120/57; PULSE 78; RESP 18; TEMP 36.8; O2SAT 97
[2024-02-23] MEDS: Lactated Ringers 1,000 ML 100 ML IV (15:45)
[2024-02-23] MEDS: Potassium Chloride Oral Tablet 20 MEQ 40 MEQ PO (15:45)
[2024-02-23 16:57] LABS: Bedside Glucose 360 mg/dL (74-106)
[2024-02-23 22:11] VITALS: BP 156/55; PULSE 87; RESP 16; TEMP 36.4; O2SAT 92
[2024-02-23 22:12] VITALS: PULSE 87
[2024-02-23] MEDS: MELATONIN 3 MG TABLET 6 MG PO (22:12)
[2024-02-23] MEDS: Metoprolol(XL)Succ 25 MG Tablet PO (22:12)
[2024-02-23] MEDS: Atorvastatin Calcium 40 MG Tablet PO (22:13)
[2024-02-23] MEDS: Pantoprazole Sodium 40 MG Tablet PO (22:13)
[2024-02-23 23:32] LABS: Bedside Glucose 324 mg/dL (74-106)
[2024-02-24] MEDS: Levothyroxine 150 MCG Tablet PO (05:04)
[2024-02-24 05:05] VITALS: BP 130/59; PULSE 65; RESP 16; TEMP 36.6; O2SAT 96
[2024-02-24] MEDS: Insulin Lispro 100 UNIT/ML INSULN.PEN SC ×4 (06:32→20:58)
[2024-02-24 06:51] LABS: Bedside Glucose 312 mg/dL (74-106)
[2024-02-24 07:13] LABS: Hemoglobin 12.8 g/dL (12.0-15.0); Mean Corp Hgb Conc 32.8 g/dL (32-36); Mean Corpuscular Hgb 28.4 pg (27.0-32.0); Mean Corpuscular Volume 86.5 fL (81-99); Mean Platelet Vol. 9.2 fl (6.2-12.0); Platelet Count 235 K/mm3 (150-450); RBC Distribution Width CV 13.1 % (11.6-14.6); RBC Distribution Width SD 41.3 fl (35.1-43.9); Red Blood Count 4.51 M/mm3 (4.2-5.4); White Blood Count 6.5 K/mm3 (4.4-11.0)
--- NOTE | 2024-02-24 07:30 | PN.HOSP_ITS ---
Reason for Visit Reason for Visit: Diagnoses Dehydration (02/22/24) Acidosis, unspecified (02/22/24) Hypokalemia (02/22/24) Urinary tract infection, site not specified (02/22/24) Hyperglycemia, unspecified (02/22/24) Other specified abnormal findings of blood chemistry (02/22/24) Subjective Subjective Patient is a 68-year-old lady who presented to the emergency department with dysuria. Diagnosed with acute cystitis. Patient was also found to have markedly elevated glucose levels of greater than 600 and lactic acidosis. Admitted to the regular nursing floor for further management Objective Data Objective Data Vital Signs: Vital Signs Temp Pulse Resp BP Pulse Ox O2 Del Method O2 Flow Rate 97.9 F 65 16 130/59 H 96 Nasal Cannula 2 02/24/24 05:05 02/24/24 05:05 02/24/24 05:05 02/24/24 05:05 02/24/24 05:05 02/24/24 05:05 02/24/24 05:05 Oxygen Flow Rate (L/min) 2 Oxygen Delivery Method Nasal Cannula Weight: 124.103 kg Body Mass Index (BMI) 44.1 Intake & Output: Intake and Output for Last 24 Hours 02/22/24 02/23/24 02/24/24 23:59 23:59 23:59 Intake Total 1050 / 1350 550 / 750 1400 / 1400 Balance 1050 / 1350 550 / 750 1400 / 1400 Lab / Micro Data 02/24/24 06:04 02/24/24 06:04 Labs: Laboratory Results - last 24 hr 02/23/24 11:18: POC Glucose 351 H 02/23/24 16:08: POC Glucose 360 H 02/23/24 22:18: POC Glucose 324 H 02/24/24 06:04: WBC 6.5, RBC 4.51, Hgb 12.8, Hct 39.0, MCV 86.5, MCH 28.4, MCHC 32.8, RDW Std Deviation 41.3, RDW Coeff of Shira 13.1, Plt Count 235, MPV 9.2 02/24/24 06:31: POC Glucose 312 H Micro: Microbiology 02/22/24 15:55 Urine, Clean Catch Urine Culture - Preliminary Gram negative almaz Physical Exam Narrative GENERAL: cooperative HEENT: Atraumatic; normocephalic EYES; Anicteric, Normal Conjunctiva NECK; supple, normal thyroid, RESPIRATORY: Diminished to auscultation CARDIOVASCULAR: Regular S1 S2, GI: soft, normoactive bowel sounds, : No Renal angle tenderness; EXTREMITIES: No edema, no clubbing, MUSCULOSKELETAL: no muscle wasting NEURO: Awake; no lateralizing signs. SKIN: No Rash PSYCH; Flat affect Assessment & Plan Assessment/Plan (1) Hyperglycemia: (2) Acute UTI: PLAN: Plan Patient is a 68-year-old lady who presented to the emergency department with dysuria. Diagnosed with acute cystitis. Patient was also found to have markedly elevated glucose levels of greater than 600 and lactic acidosis. Admitted to the regular nursing floor for further management 1. Acute complicated cystitis ? Patient urine cultures so far positive for gram-negative rods final identification and sensitivities pending patient remains on antibiotic therapy with ceftriaxone 2. Acute kidney injury ? Baseline creatinine from 11/13/2018 was 0.7 creatinine on admission was 1.5. Patient has been resuscitated with IV fluid kidney function continues to improve 3. Diabetes mellitus type 2 ? Patient presented significantly elevated glucose level of 685. Patient has apparently had financial issues obtaining her antidiabetic medication. Consult has been placed to case management to assist. Patient was started on long- acting insulin in addition to Accu-Cheks before meals and at bedtime with sliding scale coverage 4. Hypokalemia ? Corrected per protocol, repeat labs ordered for monitoring 5. Class III obesity with BMI of 44.2 ? Complicating care weight loss advised 6. Dyslipidemia ?Patient is on statin therapy, continued at home dose 7. Hypertension ? Blood pressure controlled, patient medications adjusted in view of her impaired kidney function. HCTZ and torsemide discontinued did continue with losartan and metoprolol 8. Hypothyroidism ? Patient is on levothyroxine home dose continued 9. Obstructive sleep apnea ? Consistent use of PAP therapy encouraged 10. GERD ? Patient is on PPI 11. Physical deconditioning ? Requested for PT OT eval and director of social services to assist with discharge planning 12. DVT prophylaxis ? On enoxaparin Time spent in the patient's overall evaluation,decision-making process, review of diagnostic data, adjustment of management, discussion with other providers, nursing nursing and ancillary staff involved in patient's care documentation, 52 minutes Charges/Coding Visit Charges Inpatient E&M: [address] [place] [id number]
[2024-02-24 07:36] LABS: AST(SGOT) 16 U/L (15-37); Alanine Aminotransfer ALT/SGPT 19 U/L (13-56); Albumin, Serum 3.1 g/dL (3.2-5.0); Alkaline Phosphatase 75 U/L (45-117); Anion Gap 8 (5-15); BUN 32 mg/dL (7-18); BUN/Creat Ratio 27.4 RATIO (10-20); Calcium,Total 8.9 mg/dL (8.5-10.1); Chloride 100 mmol/L (98-107); Creatinine, Serum 1.17 mg/dL (0.55-1.02); EST Glomerular Filtration Rate 49 mL/min (>60); Est Glom Filt Rate - Afr Amer 59 mL/min (>60); Estimated Creatinine Clearance 61.05 ml/min; Globulin 3.1 g/dL (2.2-4.2); Glucose 329 mg/dL (74-106); Magnesium 1.7 mg/dL (1.6-2.6); Phosphorus 3.8 mg/dL (2.5-4.9); Potassium 3.6 mmol/L (3.5-5.1); Protein, Total 6.2 g/dL (6.4-8.2); Sodium Level 135 mmol/L (136-145); T4 Free Direct 1.04 ng/dL (0.76-1.46)
[2024-02-24 09:07] VITALS: BP 135/62; PULSE 74; RESP 18; TEMP 36.7; O2SAT 94
[2024-02-24] MEDS: DULoxetine Hcl 60 MG Capsule PO (09:08)
[2024-02-24] MEDS: Insulin Glargine-YFGN 100 UNIT/ML Pen 40 UNIT SC (09:08)
[2024-02-24] MEDS: Enoxaparin 40 MG/0.4 ML Syringe SC ×2 (09:08→20:42)
[2024-02-24] MEDS: Losartan Potassium 100 MG Tablet PO (09:08)
[2024-02-24] MEDS: Ceftriaxone 1 GM/50 ML BAG IV (09:09)
[2024-02-24] MEDS: Nystatin Powder 15gm Bottle 1 APPLIC TOPICAL ×2 (09:09→20:43)
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
--- NOTE | 2024-02-24 11:14 | CASEMGMT ---
Discharge Planning A list of?HH providers including quality and resource use data and consistent with the patient's preferred geographic region, medical needs, and insurance network was created in [facility] Guide.? This list was provided to the RN HAKEEM. Tonie Torre, Discharge Planning Asst.
[2024-02-24 11:55] LABS: Bedside Glucose 421 mg/dL (74-106)
--- NOTE | 2024-02-24 12:34 | CASEMGMT ---
Addendum entered by Jenny De Dios 02/24/24 15:06: RN CM into pt room, pt lying in bed. Pt aware of her appt at [facility] on the but does not know the time. She states her dil is handling this and will be her transportation there. She is aware that [facility] has accepted her for care if she keeps the [facility] appt. Pt verbalizes understanding. TC to [facility] to obtain time of appt, left vm and requested returned call. Addendum entered by Jenny De Dios 02/24/24 13:44: Received tc from Radha at [facility], they can accept pt for a SOC on as long as pt goes to her PCP appt on Saturday. She will call pt on Saturday to confirm she went. Original Note: TC to Radha at [facility], referral made for pt for SN, PT and OT. Will await decision to accept.
[2024-02-24 15:07] VITALS: BP 140/60; PULSE 73; RESP 18; TEMP 36.6; O2SAT 95
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
[2024-02-24 17:01] LABS: Bedside Glucose 327 mg/dL (74-106)
[2024-02-24 20:42] VITALS: PULSE 80
[2024-02-24] MEDS: Atorvastatin Calcium 40 MG Tablet PO (20:42)
[2024-02-24] MEDS: Metoprolol(XL)Succ 25 MG Tablet PO (20:42)
[2024-02-24] MEDS: Pantoprazole Sodium 40 MG Tablet PO (20:42)
[2024-02-24] MEDS: Arthritis Pain Compound 60 CLICK TUBE TOPICAL (20:44)
[2024-02-24] MEDS: MELATONIN 3 MG TABLET 6 MG PO (20:52)
[2024-02-24] MEDS: Acetaminophen 325 MG Tablet 650 MG PO (20:52)
[2024-02-24 21:00] VITALS: BP 134/62; PULSE 80; RESP 14; TEMP 36.6; O2SAT 91
[2024-02-24 21:36] LABS: Bedside Glucose 258 mg/dL (74-106)
[2024-02-25] MEDS: Levothyroxine 150 MCG Tablet PO (05:58)
[2024-02-25] MEDS: Insulin Lispro 100 UNIT/ML INSULN.PEN SC ×2 (05:59→12:02)
[2024-02-25 06:00] VITALS: BP 144/54; PULSE 65; RESP 14; TEMP 36.5; O2SAT 97
[2024-02-25 06:39] LABS: Bedside Glucose 254 mg/dL (74-106)
--- NOTE | 2024-02-25 07:22 | PN.HOSP_ITS ---
Reason for Visit Reason for Visit: Diagnoses Dehydration (02/22/24) Acidosis, unspecified (02/22/24) Hypokalemia (02/22/24) Urinary tract infection, site not specified (02/22/24) Hyperglycemia, unspecified (02/22/24) Other specified abnormal findings of blood chemistry (02/22/24) Subjective Subjective Patient final urine cultures positive for Enterobacter cloacae complex. Patient is on appropriate antibiotic therapy. Objective Data Objective Data Vital Signs: Vital Signs Temp Pulse Resp BP Pulse Ox O2 Del Method O2 Flow Rate 97.7 F L 65 14 144/54 H 97 Nasal Cannula 2 02/25/24 06:00 02/25/24 06:00 02/25/24 06:00 02/25/24 06:00 02/25/24 06:00 02/25/24 06:00 02/25/24 06:00 Oxygen Flow Rate (L/min) 2 Oxygen Delivery Method Nasal Cannula Weight: 124.103 kg Body Mass Index (BMI) 44.1 Intake & Output: Intake and Output for Last 24 Hours 02/23/24 02/24/24 02/25/24 23:59 23:59 23:59 Intake Total 550 / 750 1450 / 1450 Balance 550 / 750 1450 / 1450 Lab / Micro Data 02/25/24 06:37 02/25/24 06:37 Labs: Laboratory Results - last 24 hr 02/24/24 06:04: Sodium 135 L, Potassium 3.6, Chloride 100, Carbon Dioxide 27.0, Anion Gap 8, BUN 32 H, Creatinine 1.17 H, Estim Creat Clear Calc 61.05, Est GFR (MDRD) Af Amer 59 L, Est GFR (MDRD) Non-Af 49 L, BUN/Creatinine Ratio 27.4 H, G lucose 329 H, Calcium 8.9, Phosphorus 3.8, Magnesium 1.7, Total Bilirubin 0.40, AST 16, ALT 19, Alkaline Phosphatase 75, Total Protein 6.2 L, Albumin 3.1 L, Globulin 3.1, Albumin/Globulin Ratio 1.0, Free T4 1.04 02/24/24 11:06: POC Glucose 421 H 02/24/24 16:39: POC Glucose 327 H 02/24/24 20:57: POC Glucose 258 H 02/25/24 05:58: POC Glucose 254 H Micro: Microbiology 02/22/24 15:55 Urine, Clean Catch Urine Culture - Final Enterobacter cloacae complex Social Homelessness:: Sheltered Physical Exam Narrative GENERAL: cooperative HEENT: Atraumatic; normocephalic EYES; Anicteric, Normal Conjunctiva NECK; supple, normal thyroid, RESPIRATORY: Diminished to auscultation CARDIOVASCULAR: Regular S1 S2, GI: soft, normoactive bowel sounds, : No Renal angle tenderness; EXTREMITIES: No edema, no clubbing, MUSCULOSKELETAL: no muscle wasting NEURO: Awake; no lateralizing signs. SKIN: No Rash PSYCH; Flat affect Assessment & Plan Assessment/Plan (1) Hyperglycemia: (2) Acute UTI: PLAN: Plan Patient is a 68-year-old lady who presented to the emergency department with dysuria. Diagnosed with acute cystitis. Patient was also found to have markedly elevated glucose levels of greater than 600 and lactic acidosis. Admitted to the regular nursing floor for further management 1. Acute complicated cystitis ? Patient urine cultures so far positive for gram-negative rods final identification and sensitivities pending patient remains on antibiotic therapy with ceftriaxone Patient final urine cultures positive for Enterobacter cloacae complex. Patient is on appropriate antibiotic therapy. 2. Acute kidney injury ? Baseline creatinine from 11/13/2018 was 0.7 creatinine on admission was 1.5. Patient has been resuscitated with IV fluid kidney function continues to improve 3. Diabetes mellitus type 2 ? Patient presented significantly elevated glucose level of 685. Patient has apparently had financial issues obtaining her antidiabetic medication. Consult has been placed to case management to assist. Patient was started on long- acting insulin in addition to Accu-Cheks before meals and at bedtime with sliding scale coverage 4. Hypokalemia ? Corrected per protocol, repeat labs ordered for monitoring 5. Class III obesity with BMI of 44.2 ? Complicating care weight loss advised 6. Dyslipidemia ?Patient is on statin therapy, continued at home dose 7. Hypertension ? Blood pressure controlled, patient medications adjusted in view of her impaired kidney function. HCTZ and torsemide discontinued did continue with losartan and metoprolol 8. Hypothyroidism ? Patient is on levothyroxine home dose continued 9. Obstructive sleep apnea ? Consistent use of PAP therapy encouraged 10. GERD ? Patient is on PPI 11. Physical deconditioning ? Requested for PT OT eval and social sciences instructor to assist with discharge planning 12. DVT prophylaxis ? On enoxaparin 13. Hyponatremia ? Present on admission; Resolved Time spent in the patient's overall evaluation,decision-making process, review of diagnostic data, adjustment of management, discussion with other providers, nursing nursing and ancillary staff involved in patient's care documentation, 35 minutes
[2024-02-25 07:41] LABS: Absolute Lymphocyte Count 2.27 X10^3/uL (0.83-4.51); Absolute Neutrophil Count 2.8 X10^3/uL (2.0-7.7); Basophil# 0.04 X10^3/uL; Basophil% 0.7 % (0-1); Eosinophil# 0.18 X10^3/uL; Eosinophils% 3.2 % (0-5); Hemoglobin 12.9 g/dL (12.0-15.0); Lymphocyte # 2.27 X10^3/ul (0.83-4.51); Lymphocyte % 40.4 % (19-41); Mean Corp Hgb Conc 33.1 g/dL (32-36); Mean Corpuscular Hgb 28.8 pg (27.0-32.0); Mean Corpuscular Volume 87.1 fL (81-99); Mean Platelet Vol. 9.2 fl (6.2-12.0); Monocyte# 0.36 X10^3/uL; Monocyte% 6.4 % (0-10); NRBC Flagged by Analyzer 0 % (0-5); Neutrophil # 2.75 X10^3/uL (2.7-7.7); Neutrophil % 48.9 % (47-70); Platelet Count 222 K/mm3 (150-450); RBC Distribution Width CV 13.2 % (11.6-14.6); RBC Distribution Width SD 41.1 fl (35.1-43.9); Red Blood Count 4.48 M/mm3 (4.2-5.4); White Blood Count 5.6 K/mm3 (4.4-11.0)
[2024-02-25 08:04] LABS: Anion Gap 9 (5-15); BUN 29 mg/dL (7-18); BUN/Creat Ratio 28.7 RATIO (10-20); Calcium,Total 8.9 mg/dL (8.5-10.1); Chloride 102 mmol/L (98-107); Creatinine, Serum 1.01 mg/dL (0.55-1.02); EST Glomerular Filtration Rate 58 mL/min (>60); Est Glom Filt Rate - Afr Amer 70 mL/min (>60); Estimated Creatinine Clearance 70.72 ml/min; Glucose 273 mg/dL (74-106); Magnesium 1.8 mg/dL (1.6-2.6); Phosphorus 3.7 mg/dL (2.5-4.9); Potassium 3.5 mmol/L (3.5-5.1); Sodium Level 136 mmol/L (136-145)
--- NOTE | 2024-02-25 08:34 | DS.PCM_ITS ---
Providers Date of Admission: 02/22/24 Date of Discharge: 02/25/24 Primary Care Physician: Dr. Nikki Helms Reason For Visit: HYPERGLYCEMIA Diagnosis Discharge Diagnosis (1) Hyperglycemia: Status: Acute Code(s): R73.9 - Hyperglycemia, unspecified (2) Acute UTI: Status: Acute Code(s): N39.0 - Urinary tract infection, site not specified Plan Patient is a 68-year-old lady who presented to the emergency department with dysuria. Diagnosed with acute cystitis. Patient was also found to have markedly elevated glucose levels of greater than 600 and lactic acidosis. Admitted to the regular nursing floor for further management 1. Acute complicated cystitis ? Patient urine cultures so far positive for gram-negative rods final identification and sensitivities pending patient remains on antibiotic therapy with ceftriaxone Patient final urine cultures positive for Enterobacter cloacae complex. Patient is on appropriate antibiotic therapy.. Patient was not discharged on antibiotics since her final colony count was not significant 2. Acute kidney injury ? Baseline creatinine from 11/13/2018 was 0.7 creatinine on admission was 1.5. Patient has been resuscitated with IV fluid kidney function continues to improve 3. Diabetes mellitus type 2 ? Patient presented significantly elevated glucose level of 685. Patient has apparently had financial issues obtaining her antidiabetic medication. Consult has been placed to case management to assist. Patient was started on long- acting insulin in addition to Accu-Cheks before meals and at bedtime with sliding scale coverage 4. Hypokalemia ? Corrected per protocol, repeat labs ordered for monitoring 5. Class III obesity with BMI of 44.2 ? Complicating care weight loss advised 6. Dyslipidemia ?Patient is on statin therapy, continued at home dose 7. Hypertension ? Blood pressure controlled, patient medications adjusted in view of her impaired kidney function. HCTZ and torsemide discontinued did continue with losartan and metoprolol 8. Hypothyroidism ? Patient is on levothyroxine home dose continued 9. Obstructive sleep apnea ? Consistent use of PAP therapy encouraged 10. GERD ? Patient is on PPI 11. Physical deconditioning ? Requested for PT OT eval and social work instructor to assist with discharge planning 12. DVT prophylaxis ? On enoxaparin 13. Hyponatremia ? Present on admission; Resolved Time spent in the patient's overall evaluation,decision-making process, review of diagnostic data, adjustment of management, discussion with other providers, nursing nursing and ancillary staff involved in patient's care documentation, 35 minutes Medications at Discharge Home Medications acetaminophen 650 mg tablet,extended release 650 - 1,300 mg PO BID PRN PRN Pain 11/11/18 pen needle, diabetic, safety 30 gauge x 1/3 ##1 11/13/18 dulaglutide 1.5 mg/0.5 mL subcutaneous pen injector (Trulicity) 1.5 mg subcut QWEEK 02/22/24 duloxetine 60 mg capsule,delayed release 60 mg PO DAILY pain #30 caps 02/25/24 insulin glargine-yfgn 100 unit/mL (3 mL) subcutaneous pen 60 unit (0.6 mL) subcut DAILY 30 days #18 mL 02/25/24 levothyroxine 175 mcg tablet 175 mcg PO DAILY thyroid #30 tabs 02/25/24 losartan 100 mg-hydrochlorothiazide 25 mg tablet 1 tab PO DAILY blood pressure #30 tabs 02/25/24 metoprolol succinate 50 mg tablet,extended release 24 hr 50 mg PO DAILY bp #30 tabs 02/25/24 omeprazole 20 mg capsule,delayed release 20 mg PO DAILY gerd #30 caps 02/25/24 potassium chloride 20 mEq tablet,extended release(part/cryst) 20 meq PO BIDCM supplement #60 tabs 02/25/24 simvastatin 80 mg tablet 80 mg PO QHS cholesterol #30 tabs 02/25/24 torsemide 20 mg tablet 20 mg PO DAILY diuretic #30 tabs 02/25/24 Physical Exam Narrative GENERAL: cooperative HEENT: Atraumatic; normocephalic EYES; Anicteric, Normal Conjunctiva NECK; supple, normal thyroid, RESPIRATORY: Diminished to auscultation CARDIOVASCULAR: Regular S1 S2, GI: soft, normoactive bowel sounds, : No Renal angle tenderness; EXTREMITIES: No edema, no clubbing, MUSCULOSKELETAL: no muscle wasting NEURO: Awake; no lateralizing signs. SKIN: No Rash PSYCH; Flat affect Medical Records Data Homelessness:: Sheltered Weight / BMI Weight Weight: 124.103 kg Body Mass Index (BMI) 44.1 ABG / Lab / Microbiology Data 02/25/24 06:37 02/25/24 06:37 Laboratory: Laboratory Results - last 24 hr 02/24/24 11:06: POC Glucose 421 H 02/24/24 16:39: POC Glucose 327 H 02/24/24 20:57: POC Glucose 258 H 02/25/24 05:58: POC Glucose 254 H 02/25/24 06:37: WBC 5.6, RBC 4.48, Hgb 12.9, Hct 39.0, MCV 87.1, MCH 28.8, MCHC 33.1, RDW Std Deviation 41.1, RDW Coeff of Shira 13.2, Plt Count 222, MPV 9.2, Immature Gran % (Auto) 0.400, Neut % (Auto) 48.9, Lymph % (Auto) 40.4, [place] % (Auto) 6.4, Eos % (Auto) 3.2, Baso % (Auto) 0.7, Absolute Neuts (auto) 2.8, Absolute Lymphs (auto) 2.27, Nucleated RBC % 0, Sodium 136, Potassium 3.5, Chloride 102, Carbon Dioxide 25.0, Anion Gap 9, BUN 29 H, Creatinine 1.01, Estim Creat Clear Calc 70.72, Est GFR (MDRD) Af Amer 70, Est GFR (MDRD) Non-Af 58 L, B UN/Creatinine Ratio 28.7 H, Glucose 273 H, Calcium 8.9, Phosphorus 3.7, Magnesium 1.8 Microbiology: Microbiology 02/22/24 15:55 Urine, Clean Catch Urine Culture - Final Enterobacter cloacae complex D/C Instructions Discharge Diet: 1800 Calorie Control Diet Discharge Activity: Return to Normal Activity Call your doctor if you observe: Fever of 101 or Higher, Shortness of breath, Fainting spells and Chest pain Meaningful Use Info Meaningful Use Meaningful Use Diagnoses (Choose all that apply): None applicable Ischemic Stroke Statin Dosing Therapy Reference: STATIN DOSE THERAPY REFERENCE: * Patients > 75 years receive moderate or high dose statin therapy. * Patients 75 years or YOUNGER should receive HIGH intensity statin dose unless contraindicated. You will be required to document reason for non-treatment if statin daily dose does not meet guidelines. HIGH DOSE STATIN THERAPY DAILY Atorvastatin > than or = to 40 mg Rosuvastatin > than or = to 20 mg Amlodipine + Atorvastatin > than or = to 2.5/40 mg Ezetimibe + Simvastatin 10/80 mg Simvastatin 80mg Discharge Plan Admission Admit Date/Time: 02/22/24 17:30 Attending Provider: Marco Antonio Milton Primary Care Provider: Nikki Helms Consulting Providers: Raman Alcantar; Anu Ashley Discharge Orders/Prescriptions Prescriptions: New insulin glargine-yfgn 100 unit/mL (3 mL) Insulin Pen 60 unit subcut DAILY 30 Days Qty: 18 0RF Continued acetaminophen 650 MG tablet extended release 650 - 1,300 mg PO BID PRN PRN (Reason: Pain) (DME) pen needle, diabetic, safety 1 EACH needle 1 ea MISCELL. UD Qty: 1 0RF Trulicity 1.5 mg/0.5 mL pen injector 1.5 mg subcut QWEEK Rx Instructions: every saturday levothyroxine 175 mcg tablet 175 mcg PO DAILY Qty: 30 0RF duloxetine 60 MG capsule,delayed release(DR/EC) 60 mg PO DAILY Qty: 30 0RF metoprolol succinate 50 mg tablet extended release 24 hr 50 mg PO DAILY Qty: 30 0RF simvastatin 80 tablet 80 mg PO QHS Qty: 30 0RF losartan-hydrochlorothiazide 0 tablet 1 tab PO DAILY Qty: 30 0RF potassium chloride 20 MEQ tablet 20 meq PO BIDCM Qty: 60 0RF omeprazole 20 mg capsule,delayed release(DR/EC) 20 mg PO DAILY Qty: 30 0RF Changed torsemide 20 mg tablet 20 mg PO DAILY Qty: 30 0RF Rx Instructions: Daily, as well as PRN Discontinued insulin degludec [Tresiba FlexTouch U-100] 100 unit/mL (3 mL) insulin pen 120 unit subcut QDAY insulin aspart U-100 [Novolog FlexPen U-100 Insulin] 100 unit/mL (3 mL) insulin pen 15 unit subcut TID Protocol: 6. Sliding Scale Insulin Custom Condition: mg/dl range Dose/Route: Number of Units Protocol Text: Custom Sliding Scale Rx Instructions: 15 units plus sliding scale Referrals / Follow Up: Nikki Helms [Primary Care Provider] - [facility] Doctor,Out of [Non-Staff] - Disposition Disposition (needs filled in before D/C Order can be placed): Home, Self Care Charges/Coding Visit Charges Inpatient E&M: 52196 Disch Hosp >30min
[2024-02-25 09:32] VITALS: BP 144/71; PULSE 77; RESP 18; TEMP 36.6; O2SAT 94
[2024-02-25] MEDS: DULoxetine Hcl 60 MG Capsule PO (09:42)
[2024-02-25] MEDS: Enoxaparin 40 MG/0.4 ML Syringe SC (09:42)
[2024-02-25] MEDS: Losartan Potassium 100 MG Tablet PO (09:42)
[2024-02-25] MEDS: Insulin Glargine-YFGN 100 UNIT/ML Pen 40 UNIT SC (09:43)
[2024-02-25] MEDS: Nystatin Powder 15gm Bottle 1 APPLIC TOPICAL (09:44)
[2024-02-25] MEDS: 0.9% Saline Lock 10 ML Syringe IV (09:44)
[2024-02-25] MEDS: Ceftriaxone 1 GM/50 ML BAG IV (09:45)
--- NOTE | 2024-02-25 10:01 | CASEMGMT ---
Addendum entered by Jenny De Dios 02/25/24 11:23: J LUIS PALACIO into pt room, pt aware of appt time tomorrow and that it is on her dc instructions. She is aware that she needs to attend this to be seen by [facility]. Pt is aware that her FWW is on the way to be delivered. Pt denies any further needs at this time. Addendum entered by Jenny De Dios 02/25/24 10:54: Referral sent to [facility] for FWW via careport at this time. Original Note: Received vm from [facility], pt appt is Feb 25 at 8:40am.
--- NOTE | 2024-02-25 11:13 | PHA.DC.MC.R ---
Pharmacy [facility] has performed discharge medication reconciliation and counseling for this patient. 1. INSULIN GLARGINE 60 UNITS SC DAILY The patient's discharge medication list was reviewed for discrepancies and discrepancies were resolved. The patient was counseled on the following discharge medications and changes in medications for homegoing were reviewed. The Reason for Use, instructions for use, and potential side effects were reviewed for all new medications. The patient's questions regarding all of their medications were answered. The patient was able to verbally demonstrate an understanding of their discharge medications. Patient counseled by work study studentJustice. Medications at Discharge Home Medications acetaminophen 650 mg tablet,extended release 650 - 1,300 mg PO BID PRN PRN Pain 11/11/18 pen needle, diabetic, safety 30 gauge x 1/3 ##1 11/13/18 dulaglutide 1.5 mg/0.5 mL subcutaneous pen injector (Trulicity) 1.5 mg subcut QWEEK 02/22/24 duloxetine 60 mg capsule,delayed release 60 mg PO DAILY pain #30 caps 02/25/24 insulin glargine-yfgn 100 unit/mL (3 mL) subcutaneous pen 60 unit (0.6 mL) subcut DAILY 30 days #18 mL 02/25/24 levothyroxine 175 mcg tablet 175 mcg PO DAILY thyroid #30 tabs 02/25/24 losartan 100 mg-hydrochlorothiazide 25 mg tablet 1 tab PO DAILY blood pressure #30 tabs 02/25/24 metoprolol succinate 50 mg tablet,extended release 24 hr 50 mg PO DAILY bp #30 tabs 02/25/24 omeprazole 20 mg capsule,delayed release 20 mg PO DAILY gerd #30 caps 02/25/24 potassium chloride 20 mEq tablet,extended release(part/cryst) 20 meq PO BIDCM supplement #60 tabs 02/25/24 simvastatin 80 mg tablet 80 mg PO QHS cholesterol #30 tabs 02/25/24 torsemide 20 mg tablet 20 mg PO DAILY diuretic #30 tabs 02/25/24
[2024-02-25 12:13] LABS: Bedside Glucose 343 mg/dL (74-106)
[2024-02-25 12:57] VITALS: BP 146/63; PULSE 79; RESP 18; TEMP 36.6; O2SAT 95
== END 2024-02-25 13:07 | disposition home or self-care (01) | DRG 690 ==
LOC: ED 17:23 → MS3 17:31
PROVIDERS: Internal Medicine; Nurse Practitioner; Admitting Provider Internal Medicine; Emergency Provider Emergency Medicine; Visit Provider Internal Medicine
DX: N30.00 Acute cystitis without hematuria (principal); E87.20 Acidosis, unspecified; E87.1 Hypo-osmolality and hyponatremia; N17.9 Acute kidney failure, unspecified; Z68.41 Body mass index [BMI] 40.0-44.9, adult; E11.65 Type 2 diabetes mellitus with hyperglycemia; B96.89 Other specified bacterial agents as the cause of diseases classified elsewhere; I11.0 Hypertensive heart disease with heart failure; E03.9 Hypothyroidism, unspecified; I50.9 Heart failure, unspecified; Z79.4 Long term (current) use of insulin; E87.6 Hypokalemia; G47.33 Obstructive sleep apnea (adult) (pediatric); E86.0 Dehydration; E78.5 Hyperlipidemia, unspecified; K21.9 Gastro-esophageal reflux disease without esophagitis; Z79.85 Long-term (current) use of injectable non-insulin antidiabetic drugs; Z87.891 Personal history of nicotine dependence; Z79.890 Hormone replacement therapy; R79.89 Other specified abnormal findings of blood chemistry; Z91.190 Patient's noncompliance with other medical treatment and regimen due to financial hardship; E66.813 Obesity, class 3; Z23 Encounter for immunization; Z79.899 Other long term (current) drug therapy
CPT/HCPCS: 36415; 80048; 80053; 81001; 82009; 82248; 82803; 82962; 83605; 83735; 84100; 84439; 84443; 85025; 85027; 85610; 87077; 87086; 87088; 87186; 90662; 97162; 97166; 97802; 99285; A4216

== ENCOUNTER → 2024-02-26 | Outpatient (CLI) | payer MEDICARE, SELFPAY ==
[2024-02-26 13:22] LABS: Vitamin B12 999 pg/mL (211-911)
[2024-02-26 13:23] LABS: Microalbumin,Random Urine 33.8 mg/L (NO RANGE EST.)
[2024-02-26 13:34] LABS: ALB/GLOB Ratio 0.9 RATIO (0.9-2.4); AST(SGOT) 43 U/L (15-37); Alanine Aminotransfer ALT/SGPT 42 U/L (13-56); Albumin, Serum 3.6 g/dL (3.2-5.0); Alkaline Phosphatase 95 U/L (45-117); Anion Gap 8 (5-15); BUN 21 mg/dL (7-18); BUN/Creat Ratio 20.8 RATIO (10-20); Calcium,Total 9.5 mg/dL (8.5-10.1); Chloride 101 mmol/L (98-107); Cholesterol 188 mg/dL (200); Creatinine, Serum 1.01 mg/dL (0.55-1.02); EST Glomerular Filtration Rate 58 mL/min (>60); Est Glom Filt Rate - Afr Amer 70 mL/min (>60); Globulin 3.8 g/dL (2.2-4.2); Glucose 339 mg/dL (74-106); High Density Lipoprotein 38 mg/dL; Protein, Total 7.4 g/dL (6.4-8.2); Sodium Level 137 mmol/L (136-145); Triglycerides 324 mg/dL; Very Low Density Lipoprotein 65 mg/dL (5-40)
== END | disposition home or self-care (01) ==
LOC: VSLAB 10:10
PROVIDERS: PCP Family Medicine; Visit Provider Family Medicine
DX: E11.8 Type 2 diabetes mellitus with unspecified complications (principal); E78.2 Mixed hyperlipidemia; K21.9 Gastro-esophageal reflux disease without esophagitis; N17.9 Acute kidney failure, unspecified
CPT/HCPCS: 36415; 80053; 80061; 82043; 82607

== ENCOUNTER 2024-04-10 12:28 | Outpatient (RCR) | payer MEDICARE, SELFPAY ==
--- NOTE | 2024-04-10 13:29 | HP.PTEVAL_ITS ---
Patient's Visit Information Visit Information Visit Information: TELLY GARCIA is a 69 year old F referred to Physical Therapy by Dora Morris [facility], with a diagnosis of Bilateral Knee Pain. Date of Evaluation: 04/10/24 Physical Therapist: Laine Pires DPT Visit Plan Frequency: 1x/Week Duration: 4 Weeks Plan: Aquatic PT- Focus on LE and core strength/stabilization Subjective Subjective: Patient reports that she has bilateral knee OA- the left is the worst- she had home health- was in the hospital- high sugar and UTI- with a fall and poor balance- they want her to use a walker but she prefers a cane. They want her to come to outpatient PT and do aquatic PT. She knows that she needs to have both knees replaced but needs to lose some more weight and get her A1c down again. They were going to do injections but the co-pay was too high. Worst: 7-8/10 with the storms and being too active. 4-5/10 all the time. Eases: Tylenol and Voltaren Gel. The pain is more dull and achy. The pain is more sharp on the outside. The pain is located in the whole knee. She has pain in the whole leg. And she has low back pain all the time. Sleep: she does not sleep well anyways- she is getting re-evaled for a CPAP. No N/T in the toes but she does have pain. She takes Trulicity- She will have no issues with bowel/bladder in the pool. PMHx/Meds: see medical in chart Objective Objective: Posture: forward head, rounded shoulder- can correct but does not maintain Gait: straight cane- antalgic- decreased stance bilateral- shortened stride HR/TR: able with UE A SLS: weight shift no SLS Stairs: asc/desc 8 bilateral HR- poor control with descent Flex: HS: moderate Gastroc: moderate Strength: Core: poor, Left: Hip: Flexion: 13, Extn: 35, Abd: 19, Add: 21, Knee: Flexion: 23, Extn: 24 Right: Hip: Flexion: 11, Extn: 43, Abd: 18, Add: 19, Knee: Flexion: 32, Extn: 27 Balance/Special Test Scores Lower Extremity Functional Score: 20 Goals Goal 1:: Patient will be I with HEP and progression Goal Time Frame: 4-6 Weeks Goal 2:: Patient will ambulate >300 feet with a normalized gait pattern and LRd Goal Time Frame: 4-6 Weeks Goal 3:: Patient will improve strength by 10 lbs of force Goal Time Frame: 4-6 Weeks Goal 4:: Patient will report 80% improvement Goal Time Frame: 4-6 Weeks Rehabilitation Potential Physical Therapy Diagnosis: Patient presents with hypomobility- she has decreased strength, flex and muscular endurance leading to abnormal gait and increased pain with ADL's. Rehabilitation Potential: Good Anticipated Interventions Patient/Client Instruction: Educate patient on: Benefits of Fitness Program Therapeutic Exercise to Include: Strength training, Balance training, Agility training, Body mechanics, Flexibilty training, Gait and locomotor training, Neuromotor development, In an aquatic setting, Passive ROM, Active ROM, Dynamic Lumbar Stabilization and Scapular Strength/Stabilization Text: Thank you for the opportunity to evaluate your patient. For Medicare and Medicare HMO plans, please review the plan of care and approve it. It will need to be FAXED BACK to us at [phone] for Medicare purposes. For Medicare only, by signing this I certify the plan of care. Please let me know if there are questions or concerns regarding this plan of care. Physician Signature: Date:
--- NOTE | 2024-06-29 14:45 | HP.PTDCNRP_ITS ---
Patient Information Patient Information: TELLY GARCIA was seen in my office for initial evaluation on 04/10/24. The following Plan of Care was established for this patient: POC Established Initial Frequency: 1x/Week Initial Duration: 4 Weeks Anticipated Interventions Patient/Client Instruction: Educate patient on: Benefits of Fitness Program Therapeutic Exercise to Include: Strength training, Balance training, Agility training, Body mechanics, Flexibilty training, Gait and locomotor training, Neuromotor development, In an aquatic setting, Passive ROM, Active ROM, Dy namic Lumbar Stabilization and Scapular Strength/Stabilization Last Seen Last Seen: This patient was last seen in our office . Pertinent comments regarding their Physical therapy will appear below: At this point I will be discontinuing this patient from physical therapy. I would be happy to see this patient again in the future if found appropriate by the physician. Thank you! Landon Bain, PT, ATC Balance/Gait/Functional tests Balance/Special Test Scores Lower Extremity Functional Score: 20
== END 2024-04-10 19:00 | disposition home or self-care (01) ==
LOC: PT 12:28
PROVIDERS: PCP Family Medicine; Referring Provider Family Medicine; Visit Provider Family Medicine
DX: M25.569 Pain in unspecified knee (principal)
CPT/HCPCS: 97162

== ENCOUNTER → 2024-04-16 | Outpatient (CLI) | payer MEDICARE, SELFPAY ==
--- NOTE | 2024-04-16 13:15 | ECHOD_ITS ---
Reason For Study: MURMUR Procedure This was a 2D Doppler, Color Flow transthoracic echocardiogram. Exam performed in department. Left Ventricle Normal LV size. Mild concentric left ventricular hypertrophy. Left ventricular systolic function is normal. The left ventricular ejection fraction is 60 %. Stage 1 diastolic dysfunction. No regional wall motion abnormalities noted. Right Ventricle Normal RV size. Normal systolic function. Atria Normal left atrium. Normal right atrium. Mitral Valve Normal mitral valve. Tricuspid Valve Normal tricuspid valve. Aortic Valve Trisinus/trileaflet aortic valve. Mild focal aortic valve calcification. Pulmonic Valve Normal pulmonic valve. Great Vessels Normal aortic root. The pulmonary artery is normal size. Inferior vena cava collapse with respiration. Pericardium/Pleural No pericardial effusion. MMode/2D Measurements & Calculations LVIDd: 3.7 cm IVSd: 1.3 cm LVOT diam: 2.1 cm LVIDs: 2.7 cm LVPWd: 1.5 cm LVOT area: 3.4 cm2 FS: 26.3 % Ao root diam: 2.6 cm LAV(MOD-bp): 26.6 ml LVAd ap4: 26.0 cm2 LAV(MOD-bp) Indexed: 11.9 ml/m2 LVLd ap4: 7.6 cm LAV(MOD-sp2): 16.7 ml EDV(MOD-sp4): 77.0 ml LAV(MOD-sp4): 42.5 ml EDV(sp4-el): 76.7 ml LVAs ap4: 15.6 cm2 LVLs ap4: 6.3 cm ESV(MOD-sp4): 32.0 ml ESV(sp4-el): 32.9 ml EF(MOD-sp4): 58.4 % EF(sp4-el): 57.2 % SV(MOD-sp4): 45.0 ml SV(sp4-el): 43.8 ml LA A4 area: 14.4 cm2 SI(MOD-sp4): 20.2 ml/m2 LA dimension(2D): 4.8 cm RA A4 area: 9.5 cm2 Time Measurements MV dec time: 0.11 sec Doppler Measurements & Calculations MV E max misbah: 74.2 cm/sec Lat Peak E' Misbah: 8.0 cm/sec Med Peak E' Misbah: 10.2 cm/sec MV A max misbah: 111.6 cm/sec E/E' lat: 9.3 E/E' med: 7.3 MV E/A: 0.67 MV V2 max: 119.8 cm/sec Ao V2 max: 184.8 cm/sec MV max P.7 mmHg MV dec slope: 665.8 cm/sec2 Ao max P.7 mmHg MV V2 mean: 68.0 cm/sec Ao V2 mean: 131.3 cm/sec MV mean P.1 mmHg Ao mean P.9 mmHg MV V2 VTI: 24.8 cm Ao V2 VTI: 36.3 cm AV (velocity ratio): 0.75 MVA(VTI): 3.7 cm2 CASTILLO(I,D): 2.5 cm2 CASTILLO(V,D): 2.4 cm2 LV V1 max: 129.2 cm/sec SV(LVOT): 92.5 ml PA V2 max: 95.8 cm/sec LV V1 max P.7 mmHg PA V2 mean: 67.3 cm/sec LV V1 mean P.8 mmHg LV V1 mean: 91.4 cm/sec LV V1 VTI: 27.3 cm ECHO/Echo Complete Interpretation Summary Normal LV size. Left ventricular systolic function is normal. The left ventricular ejection fraction is 60 %. Stage 1 diastolic dysfunction. Mild focal aortic valve calcification. Ordering Physician: Tj Vogt Referring Physician: Tj Vogt Performed By: Magnolia Kimball RCS
== END | disposition home or self-care (01) ==
PROVIDERS: PCP Family Medicine; Referring Provider Internal Medicine Cardiovascular Disease; Visit Provider Internal Medicine Cardiovascular Disease
DX: I49.3 Ventricular premature depolarization (principal)
CPT/HCPCS: 93225; 93226; 93306

== ENCOUNTER → 2024-06-11 | Outpatient (CLI) | payer MEDICARE, SELFPAY ==
[2024-06-11 12:26] LABS: Absolute Neutrophil Count 7.7 X10^3/uL (2.0-7.7); Basophil# 0.03 X10^3/uL; Basophil% 0.3 % (0-1); Eosinophil# 0.11 X10^3/uL; Hematocrit 44.2 % (37-47); Lymphocyte % 22.1 % (19-41); Mean Corp Hgb Conc 31.7 g/dL (32-36); Mean Corpuscular Hgb 27.6 pg (27.0-32.0); Monocyte# 0.56 X10^3/uL; Monocyte% 5.2 % (0-10); NRBC Flagged by Analyzer 0 % (0-5); Neutrophil # 7.74 X10^3/uL (2.7-7.7); Neutrophil % 71.1 % (47-70); Platelet Count 346 K/mm3 (150-450); Red Blood Count 5.08 M/mm3 (4.2-5.4); White Blood Count 10.9 K/mm3 (4.4-11.0)
[2024-06-11 13:43] LABS: Hemoglobin A1c 11.2 % (<=5.6)
[2024-06-11 14:23] LABS: Cholesterol 157 mg/dL (<=200); High Density Lipoprotein 37 mg/dL; Low Density Lipoprotein Calc. 82 mg/dL; Triglycerides 195 mg/dL; Very Low Density Lipoprotein 39 mg/dL (5-40)
== END | disposition home or self-care (01) ==
LOC: MFPLAB 10:22
PROVIDERS: PCP Family Medicine; Referring Provider Family Medicine; Visit Provider Family Medicine
DX: E03.9 Hypothyroidism, unspecified (principal); I50.9 Heart failure, unspecified; I11.0 Hypertensive heart disease with heart failure; E11.9 Type 2 diabetes mellitus without complications; R79.89 Other specified abnormal findings of blood chemistry
CPT/HCPCS: 36415; 80061; 83036; 84443; 85025

== ENCOUNTER → 2024-06-30 | Outpatient (CLI) | payer MEDICARE, SELFPAY | END | disposition home or self-care (01) | LOC: LABSPEC 15:24 | PROVIDERS: PCP Family Medicine; Visit Provider Physician Assistant | DX: R30.0 Dysuria (principal) | CPT/HCPCS: 87086; 87088; 87186 ==

== ENCOUNTER → 2024-07-22 | Outpatient (CLI) | payer MEDICARE, SELFPAY | END | disposition home or self-care (01) | LOC: MFPLAB 11:24 | PROVIDERS: PCP Family Medicine | DX: N39.0 Urinary tract infection, site not specified (principal) | CPT/HCPCS: 87086; 87088 ==

== ENCOUNTER 2024-08-11 18:49 | Inpatient (IN) | payer MEDICARE, SELFPAY ==
[2024-08-11] VITALS (8 sets, daily range): BP systolic 106–146; BP diastolic 40–69; PULSE 71–99; RESP 9–19; TEMP 36.5–37.1; O2SAT 92–96; BMI 43.6; BMI 41.2
[2024-08-11 19:13] LABS: Absolute Neutrophil Count 9.4 X10^3/uL (2.0-7.7); Basophil# 0.03 X10^3/uL; Basophil% 0.2 % (0-1); Eosinophil# 0.04 X10^3/uL; Eosinophils% 0.3 % (0-5); Hematocrit 40.7 % (37-47); Hemoglobin 13.6 g/dL (12.0-15.0); Lymphocyte % 18.4 % (19-41); Mean Corp Hgb Conc 33.4 g/dL (32-36); Mean Corpuscular Hgb 28.7 pg (27.0-32.0); Mean Corpuscular Volume 85.9 fL (81-99); Mean Platelet Vol. 9.4 fl (6.2-12.0); Monocyte# 0.63 X10^3/uL; NRBC Flagged by Analyzer 0 % (0-5); Neutrophil # 9.44 X10^3/uL (2.7-7.7); Neutrophil % 75.5 % (47-70); Platelet Count 325 K/mm3 (150-450); RBC Distribution Width CV 13.2 % (11.6-14.6); RBC Distribution Width SD 40.5 fl (35.1-43.9); Red Blood Count 4.74 M/mm3 (4.2-5.4); White Blood Count 12.5 K/mm3 (4.4-11.0)
[2024-08-11 19:29] LABS: Lipase 56 U/L (13-75)
[2024-08-11 19:47] LABS: ALB/GLOB Ratio 1.2 RATIO (0.9-2.4); AST(SGOT) 18 U/L (<=31); Alanine Aminotransfer ALT/SGPT 9 U/L (<=34); Albumin, Serum 3.6 g/dL (3.4-4.8); Alkaline Phosphatase 87 U/L (35-104); Anion Gap 16 (5-15); BUN 40 mg/dL (4-19); BUN/Creat Ratio 26.9 RATIO (10-20); Calcium,Total 8.6 mg/dL (7.6-11.0); Carbon Dioxide 24.2 mmol/L (21.0-32.0); Chloride 83 mmol/L (98-108); Creatinine, Serum 1.49 mg/dL (0.70-1.20); EST Glomerular Filtration Rate 38 (>60); Globulin 2.9 g/dL (2.2-4.2); Glucose 649 mg/dL (70-99); Potassium 3.4 mmol/L (3.3-5.1); Protein, Total 6.5 g/dL (5.9-8.4); Sodium Level 123 mmol/L (133-145); Total Bilirubin 0.17 mg/dL (0.00-1.30)
--- NOTE | 2024-08-11 19:50 | EKG12_ITS ---
Test Reason : DYSRHYTHMIA Blood Pressure : */* mmHG Vent. Rate : 80 BPM Atrial Rate : 80 BPM P-R Int : 192 ms QRS Dur : 88 ms QT Int : 396 ms P-R-T Axes : 59 -13 51 degrees QTcB Int : 456 ms Normal sinus rhythm Low voltage QRS Borderline ECG Confirmed by SANDRA MENDENHALL, JESENIA ([id number]), offline editor IGOR TOVAR ([id number]) on 08/12/2024 1:34:32 PM Referred By: Confirmed By: JESENIA FLORES MD
[2024-08-11 20:19] LABS: Allen Test Positive; Base Excess 8 mmol/L (-2 to +2); Bicarbonate 31.3 mmol/L (22-26); Blood Gas Specimen Type ART; Mode Not entered; O2 Delivery Device Room Air; PO2 53 mmHG (75-100); SITE L Radial; SO2 89 % (95-99); Total Carbon Dioxide 33 mmol/L; pCO2 41.6 mmHg (35-45); pH 7.48 (7.35-7.45)
[2024-08-11] MEDS: 0.9% Normal Saline (1000mL) 1,000 ML 1000 ML IV ×2 (20:22→21:58)
[2024-08-11 20:27] LABS: BETA-HYDROXYBUTYRATE 0.4 mmol/L (0.0-0.3)
[2024-08-11 20:35] LABS: Mucous, Urine 0 SEEN /hpf (<or=2+)
[2024-08-11 20:43] LABS: Color, Urine Yellow (Yellow); Glucose, Dipstick 1000 mg/dl (Normal); Ketone-Dipstick Negative (Negative); Leukocyte Esterase-Dipstick 500 /ul (Negative); Nitrite-Dipstick Negative (Negative); Occult Blood-Urine 25 /ul (Negative); Protein-Dipstick 30 mg/dl (Negative); Urine Bilirubin Dipstick Negative (Negative); Urine Clarity Cloudy (Clear); Urine Urobilinogen Normal (Normal)
[2024-08-11 21:20] LABS: Bacteria 3+ /hpf (None Seen)
[2024-08-11 21:27] LABS: White Blood Cells >100 SEEN /hpf (0-5)
[2024-08-11 21:30] LABS: Yeast-Urine 3+ /hpf (None Seen)
[2024-08-11 21:31] LABS: Squamous Epithelial Cells - UA 10-25 SEEN /hpf (5-10)
[2024-08-11 21:33] LABS: Red Blood Cells-Urine 0-5 SEEN /hpf (0-5)
[2024-08-11 21:34] LABS: Transitional Epithelial - Ur 0-5 SEEN /hpf (0-5)
--- NOTE | 2024-08-11 21:38 | EDS_ITS ---
HPI History of Present Illness Chief Complaint: Hyperglycemia Informant: patient Onset/Context/Timing Onset: Weeks (2) Context: Gradual Onset Timing: Continuous Quality: Weakness Location: Generalized Worsened by: Nothing Relieved by: Nothing Narrative Narrative: Patient presents with elevated blood sugar that has been worse over the past 2 weeks. Patient states she feels weak all over. Patient states she had a recent urinary tract infection that caused her blood sugars to be elevated. Patient states she has been out of her long-acting insulin since last week and her short acting insulin since yesterday. Patient admits to some subjective fevers. Patient does admit to some nausea but denies any vomiting. Patient also admits to some diarrhea. [facility] Medical History UTI (urinary tract infection) Contact with or exposure to other viral diseases HERMINIA on CPAP PVCs (premature ventricular contractions) Pericarditis Chronic heart failure with preserved ejection fraction Hyperlipidemia Benign essential hypertension Type 2 diabetes mellitus Hyperosmolar hyponatremia Familial combined hyperlipidemia Hypothyroidism Hiatal hernia GERD (gastroesophageal reflux disease) Morbid obesity Intermittent asthma Arthritis Depression Home Medications ?Medication ?Instructions ?Recorded ?Last Taken ?Type pen needle, diabetic, safety 30 ##1 11/13/18 Unknown R x gauge x /3 dulaglutide 1.5 mg/0.5 mL 1.5 mg subcut QWEEK 02/22/24 Unknown History subcutaneous pen injector (Trulicity) duloxetine 60 mg capsule,delayed 60 mg PO DAILY pain # 30 caps 02/25/24 11/10/18 Rx release levothyroxine 175 mcg tablet 175 mcg PO DAILY thyroid #30 tabs 02/25/24 Unknown Rx losartan 100 1 tab PO DAILY blood pressur e #30 02/25/24 Unknown Rx mg-hydrochlorothiazide 25 mg tablet tabs metoprolol succinate 50 mg 50 mg PO DAILY bp #30 tabs 02/25/24 Unknown Rx tablet,extended release 24 hr simvastatin 80 mg tablet 80 mg PO QHS cholesterol #30 tabs 02/25/24 Unknown Rx acetaminophen 650 mg 1,300 mg PO BID PRN PRN Pain 03/20/24 Unknown History tablet,extended release albuterol sulfate 90 mcg/actuation 2 puff inhalation Q 4-6H PRN 03/20/24 Unknown History aerosol inhaler shortness of breath or wheez ing aspirin 81 mg tablet,delayed 81 mg PO QDAY 03/20/24 Un known History release (Adult Low Dose Aspirin) cetirizine 10 mg tablet 10 mg PO QDAY 03/20/24 Unkno wn History cholecalciferol (vitamin D3) 50 50 mcg PO QDAY 4 Unknown History mcg (2,000 unit) tablet (Vitamin D3) diclofenac sodium 1 % topical gel 2 g topical ONCE PRN pain 03/20/24 Unknown History (Aleve (diclofenac)) hydroxyzine HCl 50 mg tablet 50 mg PO TID PRN anxiety 03/20/24 Unknown History insulin degludec 100 unit/mL (3 100 unit subcut DAILY 03/20/24 Unknown History mL) subcutaneous pen (Tresiba FlexTouch U-100 insulin) insulin lispro 100 unit/mL 15 unit subcut QAC 03/20/24 Unknown History subcutaneous pen (Humalog KwikPen (U-100) Insulin) multivitamin 1 tab PO QAM 03/20/24 Unknow n History nystatin 100,000 unit/gram topical 1 applic topical NE N yeast 03/20/24 Unknown History powder (Nyamyc) torsemide 20 mg tablet 20 mg PO DAILY PRN diuretic 03/20/24 Unknown History omeprazole 20 mg capsule,delayed 20 mg PO QHS gerd Unknown History release potassium chloride 20 mEq 40 meq PO DAILY supplement 0 08/11/24 Unknown History tablet,extended release(part/cryst) Allergy/AdvReac Type Severity Reaction Status Date / Time ciprofloxacin (From Cipro) Allergy Anaphylaxis Verified 08/11/24 18:54 levofloxacin (From Levaquin) Allergy Anaphylaxis Verified 08/11/24 18:54 lisinopril AdvReac cough Verified 08/11/24 18:54 metformin AdvReac Diarrhea Verified 08/11/24 18:54 methadone AdvReac Other Verified 08/11/24 18:54 Family History Father COPD (chronic obstructive pulmonary disease) Mother Diabetes Hypertension Thyroid disorder Surgical History History of left heart catheterization (05/11/19) History of left hemicolectomy S/P excision of lipoma H/O umbilical hernia repair History of cholecystectomy Hx of tubal ligation History of appendectomy History of hysterectomy History of tonsillectomy and adenoidectomy Social History household members: spouse Smoking Status: Never smoker alcohol intake: never substance use type: does not use ROS ROS ED Constitutional Constitutional ED: Reports fever(s) and subjective; Denies chills Eyes Eyes: Denies blurry vision or change in vision ENT ENT ED: Denies rhinorrhea or sore throat Cardiovascular Cardiovascular: Denies chest pain or palpitations Respiratory/Chest Respiratory/Chest: Denies cough or dyspnea Gastrointestinal Gastrointestinal: Reports diarrhea and nausea; Denies vomiting Genitourinary Genitourinary ED: Denies dysuria or hematuria Musculoskeletal Musculoskeletal: Reports back pain and neck pain Integumentary Denies abscess or rash Neurologic Neurologic: Denies headache(s) or weakness Allergic/Immunologic Allergic/Immunologic ED: Denies mouth swelling or urticaria EXAM Physical Exam Const Vital Signs: 08/11/24 18:51 08/11/24 20:20 08/11/24 20:50 Temperature 98.1 F Temperature Source Oral Pulse Rate 99 72 Respiratory Rate 18 13 Respiratory Effort Normal Non-Labored Respiratory Pattern Normal Blood Pressure 120/64 106/40 L Blood Pressure Mean 82 62 Pulse Ox 93 93 Oxygen Delivery Method Room Air 08/11/24 21:59 Temperature Temperature Source Pulse Rate 80 Respiratory Rate 18 Respiratory Effort Respiratory Pattern Blood Pressure 113/44 L Blood Pressure Mean 67 Pulse Ox 93 Oxygen Delivery Method Positive well nourished and well developed Constitutional Narrative: BMI is 43.6 General Appearance ED: well developed and NAD HEENT Reports moist mucous membranes Neck supple and no JVD Resp normal respiratory effort and clear to auscultation bilaterally Cardio regular rate and regular rhythm GI non-tender and non-distended Palpation: soft Extremity normal to inspection General Extremety ED: Negative for edema General Extremity: Negative for edema Neuro oriented x3, CN's II-XII intact bilaterally and no sensory deficits noted Sensorium / Orientation: alert Motor Exam: strength 5/5 throughout Psych mental status grossly normal MDM MDM MDM Narrative Medical decision making narrative: Differential diagnosis includes diabetic ketoacidosis, hyperosmolar hyperglycemic nonketotic state, dehydration, urinary tract infection, electrol yte abnormality, and viral illness. CBC will be obtained to assess for leukocytosis and anemia. Comprehensive metabolic profile will be obtained to assess for electrolyte abnormality and renal function. Lipase will be obtained to assess for pancreatitis. Beta hydroxybutyrate will be obtained to assess for ketoacidosis. Urinalysis will be obtained to assess for urinary tract infection and hematuria. Arterial blood gas will be obtained to assess for acidosis. Lab Data Attestation: I reviewed the patient's lab results. Lab results narrative: The CBC was reviewed. There is a mild leukocytosis of 12.5. The remainder is within normal limits. Comprehensive metabolic profile was reviewed. Sodium was low at 123 and chloride was 83. CO2 was normal at 24.2. BUN was elevated at 48 and creatinine was 1.49. These are slightly increased from previous results. Glucose was reviewed and was elevated at 649. Lipase was reviewed and was normal at 56. Beta hydroxybutyrate was reviewed and was slightly elevated at 0.4. Urinalysis was reviewed. Leukocyte Estrace was 500 with greater than 100 white blood cells and 3+ bacteria. There is also 3+ yeast noted. Urine glucose was 1000. Urine ketones were negative. Labs: Laboratory Results - last 24 hr 08/11/24 08/11/24 08/11/24 19:02 19:09 20:24 WBC 12.5 H RBC 4.74 Hgb 13.6 Hct 40.7 MCV 85.9 MCH 28.7 MCHC 33.4 RDW Std Deviation 40.5 RDW Coeff of Shira 13.2 Plt Count 325 MPV 9.4 Immature Gran % (Auto) 0.600 Neut % (Auto) 75.5 H Lymph % (Auto) 18.4 L Mcdonough % (Auto) 5.0 Eos % (Auto) 0.3 Baso % (Auto) 0.2 Absolute Neuts (auto) 9.4 H Absolute Lymphs (auto) 2.30 Nucleated RBC % 0 Sodium 123 L Potassium 3.4 Chloride 83 L Carbon Dioxide 24.2 Anion Gap 16 H BUN 40 H Creatinine 1.49 H Est GFR (MDRD) Non-Af 38 L BUN/Creatinine Ratio 26.9 H Glucose 649 H* Calcium 8.6 Total Bilirubin 0.17 AST 18 ALT 9 Alkaline Phosphatase 87 Total Protein 6.5 Albumin 3.6 Globulin 2.9 Albumin/Globulin Ratio 1.2 Lipase 56 b-Hydroxybutyric mmol/L 0.4 Urine Color Yellow Urine Clarity Cloudy Urine pH 6.0 Ur Specific [place] 1.010 Urine Protein 30 H Urine Glucose (UA) 1000 H Urine Ketones Negative Urine Occult Blood 25 H Urine Nitrite Negative Urine Bilirubin Negative Urine Urobilinogen Normal Ur Leukocyte Esterase 500 H Urine RBC 0-5 SEEN Urine WBC >100 SEEN Ur Squamous Epith Cells 10-25 SEEN Ur Transition Epith Cell 0-5 SEEN Urine Bacteria 3+ Urine Mucus 0 SEEN Urine Yeast 3+ POC Glucose 08/11/24 22:18 WBC RBC Hgb Hct MCV MCH MCHC RDW Std Deviation RDW Coeff of Shira Plt Count MPV Immature Gran % (Auto) Neut % (Auto) Lymph % (Auto) Mcdonough % (Auto) Eos % (Auto) Baso % (Auto) Absolute Neuts (auto) Absolute Lymphs (auto) Nucleated RBC % Sodium Potassium Chloride Carbon Dioxide Anion Gap BUN Creatinine Est GFR (MDRD) Non-Af BUN/Creatinine Ratio Glucose Calcium Total Bilirubin AST ALT Alkaline Phosphatase Total Protein Albumin Globulin Albumin/Globulin Ratio Lipase b-Hydroxybutyric mmol/L Urine Color Urine Clarity Urine pH Ur Specific [place] Urine Protein Urine Glucose (UA) Urine Ketones Urine Occult Blood Urine Nitrite Urine Bilirubin Urine Urobilinogen Ur Leukocyte Esterase Urine RBC Urine WBC Ur Squamous Epith Cells Ur Transition Epith Cell Urine Bacteria Urine Mucus Urine Yeast POC Glucose 386 H ABG Data Attestation: I personally reviewed and interpreted this ABG as follows: Interpretation: Arterial blood gas was reviewed. pH was normal at 7.48. Bicarbonate was slightly low at 31.3. pCO2 was normal at 41 pO2 was slightly low at 53. Oxygen saturation was 89% on room air. ABG results: ABG 08/11/24 20:16 Specimen Type ART Sample Site L Radial pH 7.48 H Bicarbonate Actual 31.3 H Total CO2 33 Base Excess 8 H O2 Saturation 89 L ABG pCO2 41.6 ABG pO2 53 L Wiliam Test Positive O2 Delivery Device Room Air Vent Mode Not entered EKG Initial EKG: Attestation: I personally reviewed and interpreted this EKG as follows: Interpretation: Sinus Rhythm (80) and No Acute Injury Pattern Comments: EKG was obtained. On my independent interpretation, it showed a normal sinus rhythm with a rate of 80. NE interval, QRS interval, and QTc intervals were all normal. [place] was normal. There are no acute ST or T wave changes. Prior EKG tracings: available for review Prior: Unchanged (03/27/2024) Management Discussion w/another healthcare provider: Hospitalist Additional Tests and Interventions Additional Tests or Interventions: Urine culture was ordered. Treatment and Re-Evaluation :: Patient was given IV fluids. Patient was given Rocephin for urinary tract infection. Calculated serum osmolality was 296. Patient was started on insulin drip. Case was discussed with the hospitalist. She will admit the patient to the ICU. Patient understood and was agreeable with the plan. All questions were answered. Critical Care Time Critical Care Time: Yes Critical care time (excluding procedures): 30-74 minutes (32), Including time spent:, Discussing w/Patient &/or Family/Cad Designer, Discussing w/Consultants, Arranging Admission or Transfer and Performing Direct Patient Care at Bedside Discharge Plan Dx/Rx/DC Orders Clinical Impression: Diabetic ketoacidosis, UTI (urinary tract infection), Benign essential hypertension, Acute kidney injury, Hyponatremia Disposition Disposition: [facility] Discharge Date/Time: 08/11/24 22:56
[2024-08-11] MEDS: Ceftriaxone 1 GM/50 ML BAG IV (22:11)
--- NOTE | 2024-08-11 22:22 | PCM.HP.STD ---
HPI - General General Date of Admission: 08/11/24 Date of Service: 08/11/24 Chief Complaint: N/V/D, abdominal discomfort, elevated BS, out of her insulin. HPI Narrative The patient is a 69 y/o F w/ PMHx: Morbid obesity, HERMINIA on CPAP, HTN, HLD, Hypothyroidism, GERD, Asthma, HFpEF, Anxiety and Depression who presents to the [facility] ED on 08/11/2024 with history of significantly elevated blood sugars with history of unfortunately being off of her insulin for nearly 2 weeks because of recently moving and the pharmacy she has been using accidentally sent the meds to the wrong place and she has had difficulty getting them to send them to the correct place with onset of left flank discomfort, nausea, emesis, significant diarrhea which she notes has been intermittent over the last week with history of recent diagnosis earlier in the month of urinary tract infection initially treated with Augmentin and then transitioned to Macrobid and eventually considered cleared for repeat culture. She notes primarily discomfort in the left lower quadrant and left flank however this is intermittent and occasionally cramping in nature. On evaluation she is nontender to palpation with no flank discomfort. Workup in the ED included T98.1, heart rate 99, BP 120/64, respiratory rate 18, 93% on room air with most recent repeat vitals heart rate 80, BP 113/44, respiratory rate 18, 93% on room air, CBC with WBC 12.5, hemoglobin 13.6, platelet 325 with left shift, ABG with pH 7.48, bicarb 31.3, PO253, PCO2 41.6 on room air, CMP with sodium 123, chloride 83, anion gap 16, BUN/creatinine 40/1.49, GFR 38, glucose 649, hepatic profile not marked appearing, hydroxybutyrate 0.4, urinalysis with cloudy appearing urine, specifically 1.010, protein 30, glucose 1000, ketone negative, occult blood 25, nitrite negative, leukocyte Estrace 500 with greater than 100 urine WBCs with 3+ urine bacteria however it is a poor sample with squamous epithelial cells noted to be 10-25, urine culture pending per ED. Most recent culture noted with growth 80 with resistance to ciprofloxacin, Levaquin, Bactrim. In the ED patient ministered Rocephin 1 g IV x 1 and initiated on an insulin drip. [facility] Medical History Contact with or exposure to other viral diseases HERMINIA on CPAP PVCs (premature ventricular contractions) Pericarditis Chronic heart failure with preserved ejection fraction Hyperlipidemia Benign essential hypertension Type 2 diabetes mellitus Hyperosmolar hyponatremia Familial combined hyperlipidemia Hypothyroidism Hiatal hernia GERD (gastroesophageal reflux disease) Morbid obesity Intermittent asthma Arthritis Depression Home Medications ?Medication ?Instructions ?Recorded ?Last Taken ?Type pen needle, diabetic, safety 30 ##1 11/13/18 Unknown Rx gauge x 1/3 dulaglutide 1.5 mg/0.5 mL 1.5 mg subcut QWEEK 02/22/24 Unknown History subcutaneous pen injector (Trulicity) duloxetine 60 mg capsule,delayed 60 mg PO DAILY pain #30 caps 02/25/24 11/10/18 Rx release levothyroxine 175 mcg tablet 175 mcg PO DAILY thyroid #30 tabs 02/25/24 Unknown Rx losartan 100 1 tab PO DAILY blood pressure #30 02/25/24 Unknown Rx mg-hydrochlorothiazide 25 mg tablet tabs metoprolol succinate 50 mg 50 mg PO DAILY bp #30 tabs 02/25/24 Unknown Rx tablet,extended release 24 hr simvastatin 80 mg tablet 80 mg PO QHS cholesterol #30 tabs 02/25/24 Unknown Rx acetaminophen 650 mg 1,300 mg PO BID PRN PRN Pain 03/20/24 Unknown History tablet,extended release albuterol sulfate 90 mcg/actuation 2 puff inhalation Q4-6H PRN 03/20/24 Unknown History aerosol inhaler shortness of breath or wheezing aspirin 81 mg tablet,delayed 81 mg PO QDAY 03/20/24 Unknown History release (Adult Low Dose Aspirin) cetirizine 10 mg tablet 10 mg PO QDAY 03/20/24 Unknown History cholecalciferol (vitamin D3) 50 50 mcg PO QDAY 03/20/24 Unknown History mcg (2,000 unit) tablet (Vitamin D3) diclofenac sodium 1 % topical gel 2 g topical ONCE PRN pain 03/20/24 Unknown History (Aleve (diclofenac)) hydroxyzine HCl 50 mg tablet 50 mg PO TID PRN anxiety 03/20/24 Unknown History insulin degludec 100 unit/mL (3 100 unit subcut DAILY 03/20/24 Unknown History mL) subcutaneous pen (Tresiba FlexTouch U-100 insulin) insulin lispro 100 unit/mL 15 unit subcut QAC 03/20/24 Unknown History subcutaneous pen (Humalog KwikPen (U-100) Insulin) multivitamin 1 tab PO QAM 03/20/24 Unknown History nystatin 100,000 unit/gram topical 1 applic topical PRN yeast 03/20/24 Unknown History powder (Nyamyc) torsemide 20 mg tablet 20 mg PO DAILY PRN diuretic 03/20/24 Unknown History omeprazole 20 mg capsule,delayed 20 mg PO QHS gerd 08/11/24 Unknown History release potassium chloride 20 mEq 40 meq PO DAILY supplement 08/11/24 Unknown History tablet,extended release(part/cryst) Allergy/AdvReac Type Severity Reaction Status Date / Time ciprofloxacin (From Cipro) Allergy Anaphylaxis Verified 08/11/24 18:54 levofloxacin (From Levaquin) Allergy Anaphylaxis Verified 08/11/24 18:54 lisinopril AdvReac cough Verified 08/11/24 18:54 metformin AdvReac Diarrhea Verified 08/11/24 18:54 methadone AdvReac Other Verified 08/11/24 18:54 Family History Father COPD (chronic obstructive pulmonary disease) Mother Diabetes Hypertension Thyroid disorder Surgical History History of left heart catheterization (05/11/19) History of left hemicolectomy S/P excision of lipoma H/O umbilical hernia repair History of cholecystectomy Hx of tubal ligation History of appendectomy History of hysterectomy History of tonsillectomy and adenoidectomy Social History household members: spouse Smoking Status: Former smoker alcohol intake: never substance use type: does not use ROS ROS Narrative Admission Review of Systems: CONSTITUTIONAL: No weight loss, fever, chills, + weakness or fatigue. HEENT: Eyes: No visual loss, blurred vision, double vision or yellow sclerae. Ears, Nose, Throat: No hearing loss, sneezing, congestion, runny nose or sore throat. SKIN: No rash or itching, lesions, wounds. CARDIOVASCULAR: No chest pain, chest pressure or chest discomfort, palpitations, edema, orthopnea, syncopal events. RESPIRATORY: No shortness of breath, cough or sputum, wheezing, hemoptysis. GASTROINTESTINAL: + anorexia, nausea, vomiting, diarrhea, abdominal pain. No melena, BRBPR. GENITOURINARY: + Flank pain. Currently no dysuria, frequency, urgency or retention. NEUROLOGICAL: No headache, dizziness, syncope, paralysis, ataxia, numbness or tingling in the extremities, focal weakness, change in bowel or bladder control, seizure. MUSCULOSKELETAL: + muscle, back pain, joint pain or stiffness. HEMATOLOGIC: No anemia, bleeding or bruising. LYMPHATICS: No enlarged nodes. No history of splenectomy. PSYCHIATRIC: No history of depression or anxiety. ENDOCRINOLOGIC: No reports of sweating, cold or heat intolerance. No polyuria or polydipsia. ALLERGIES: + History of anaphylaxis, asthma. Vital Signs Vital Signs Vital Signs: 08/11/24 18:51 08/11/24 20:20 08/11/24 20:50 Temperature 98.1 F Temperature Source Oral Pulse Rate 99 72 Respiratory Rate 18 13 Respiratory Effort Normal Non-Labored Respiratory Pattern Normal Blood Pressure 120/64 106/40 L Blood Pressure Mean 82 62 Pulse Ox 93 93 Oxygen Delivery Method Room Air 08/11/24 21:59 Temperature Temperature Source Pulse Rate 80 Respiratory Rate 18 Respiratory Effort Respiratory Pattern Blood Pressure 113/44 L Blood Pressure Mean 67 Pulse Ox 93 Oxygen Delivery Method Weight Weight: 270 lb 4.587 oz Body Mass Index (BMI) 43.6 Physical Exam Narrative Physical Examination: General: Awake, alert, oriented x 3 and cooperative, laying in ED bed, no acute distress evident, extremely talkative. Skin: Normal color, normal turgor, no icterus, no cyanosis. HEENT: AT/NC, EOMI, PERRLA, dry MM, no carotid bruits or JVD noted. Lungs: Appropriate effort, diminished, greater bases, mildly distant likely secondary to habitus, no rales, ronchi or wheezing. Heart: Regular rate and rhythm; no gallop, rub audible. Abdomen: Soft, morbidly obese, NTTP, mildly hyperactive BS, no obvious distention or HSM however difficult examination given habitus. Extremities: No cyanosis, clubbing, mild ankle not markedly pitting edema bilaterally. Neurological: Patient awake, alert, oriented as noted, cognitive function intact; pupils equally reactive to light and accommodation, cranial nerves gross normal, moving all 4 extremities, no focal deficits, strength moderately globally decreased secondary to acute presentation. Psychiatric: Affect appears fatigued otherwise normal, extremely talkative, no acute evidence of depressive or anxiety feelings but does have underlying history. Results Lab / Micro Data 08/11/24 19:02 08/11/24 19:02 Labs: Laboratory Results - last 24 hr 08/11/24 19:02: WBC 12.5 H, RBC 4.74, Hgb 13.6, Hct 40.7, MCV 85.9, MCH 28.7, MCHC 33.4, RDW Std Deviation 40.5, RDW Coeff of Shira 13.2, Plt Count 325, MPV 9.4, Immature Gran % (Auto) 0.600, Neut % (Auto) 75.5 H, Lymph % (Auto) 18.4 L, [place] % (Auto) 5.0, Eos % (Auto) 0.3, Baso % (Auto) 0.2, Absolute Neuts (auto) 9.4 H, Absolute Lymphs (auto) 2.30, Nucleated RBC % 0, Sodium 123 L, Potassium 3.4, Chloride 83 L, Carbon Dioxide 24.2, Anion Gap 16 H, BUN 40 H, Creatinine 1.49 H, Est GFR (MDRD) Non-Af 38 L, BUN/Creatinine Ratio 26.9 H, Glucose 649 H*, Calcium 8.6, Total Bilirubin 0.17, AST 18, ALT 9, Alkaline Phosphatase 87, Total Protein 6.5, Albumin 3.6, Globulin 2.9, Albumin/Globulin Ratio 1.2, Lipase 56 08/11/24 19:09: b-Hydroxybutyric mmol/L 0.4 08/11/24 20:24: Urine Color Yellow, Urine Clarity Cloudy, Urine pH 6.0, Ur Specific [place] 1.010, Urine Protein 30 H, Urine Glucose (UA) 1000 H, Urine Ketones Negative, Urine Occult Blood 25 H, Urine Nitrite Negative, Urine Bilirubin Negative, Urine Urobilinogen Normal, Ur Leukocyte Esterase 500 H, Urine RBC 0-5 SEEN, Urine WBC >100 SEEN, Ur Squamous Epith Cells 10-25 SEEN, Ur Transition Epith Cell 0-5 SEEN, Urine Bacteria 3+, Urine Mucus 0 SEEN, Urine Yeast 3+ ABG Data ABG results: ABG 08/11/24 20:16 Specimen Type ART Sample Site L Radial pH 7.48 H Bicarbonate Actual 31.3 H Total CO2 33 Base Excess 8 H O2 Saturation 89 L ABG pCO2 41.6 ABG pO2 53 L Wiliam Test Positive O2 Delivery Device Room Air Vent Mode Not entered Assessment & Plan Assessment/Plan (1) UTI (urinary tract infection): PLAN: Plan The patient is a 69 y/o F w/ PMHx: Morbid obesity, HERMINIA on CPAP, HTN, HLD, Hypothyroidism, GERD, Asthma, HFpEF, Anxiety and Depression who presents to the [facility] ED on 08/11/2024 with history of significantly elevated blood sugars with history of unfortunately being off of her insulin for nearly 2 weeks because of recently moving and the pharmacy she has been using accidentally sent the meds to the wrong place and she has had difficulty getting them to send them to the correct place with onset of left flank discomfort, nausea, emesis, significant diarrhea which she notes has been intermittent over the last week with history of recent diagnosis earlier in the month of urinary tract infection initially treated with Augmentin and then transitioned to Macrobid and eventually considered cleared for repeat culture. #1. Significant hyperglycemia with suspected HHS versus early DKA (no ketones in the urine, hydroxybutyrate 0.4 only): Although lower suspicion still some concern for ED for possible DKA, will therefore admit to the ICU, continue on insulin drip, check serial K+, glucose w/ IVF changes pending these levels, serial chemistry, obtain mag, phos daily w/ repletion as needed, transition to home SC regimen when gap closed w/ overlap on drip, nutrition consultation, osmolality also requested. Hemoglobin A1c requested, nutrition consulted for education and teaching. Case management consulted for discharge planning to avoid any recurrent events with not being able to get her medications. #2. Electrolyte disturbances with significant hyponatremia, hypochloremia, likely in large part related to hyperglycemic presentation as noted: Corrected sodium improved, admission sodium 123, chloride 83 however again hyperglycemic with glucose 649 thus corrected improved, will continue aggressive IV fluids and further evaluation as noted #1, magnesium and phosphorus levels requested, continue to trend serial BMP as noted. #3. Acute renal insufficiency/elevated creatinine on CKD stage III unclear subtype per GFR trending: Admission BUN/: 40/1.49, GFR 38, previous GFR primarily consistent with stage III unclear subtype, baseline creatinine most recently 1.0 although has somewhat vacillated, we will continue to aggressively hydrate given #1, #2, continue to trend BMP as noted. #4. Questionable Acute Urinary Tract Infection although poor sample with significant squamous epithelial cells: UA in the ED remarkable however notably elevated squamous epithelial cells thus we will attempt to repeat and obtain good sample with straight cath, will request repeat urinalysis from this and urine culture if appropriate, will continue aggressive IV fluids, monitor I/Os, continue IV Rocephin w/ transition as able pending sensitivities and speciation or de-escalation to office repeat urinalysis not marked. #5. N/V/D, questionable gastroenteritis, questionable UTI as noted, questionable DKA versus HHS, certainly could be any of the acute presenting reasons however patient was on recent antibiotic therapy thus some concerns: Will continue to hydrate as noted, will obtain c diff, stool cx, continue IV antibiotic therapy while further evaluating for possible UTI as noted, if C. difficile is negative will initiate loperamide regimen, anti-emetics, pain regimen PRN. #6. HFpEF: Most recent echocardiogram noted 04/16/2024 with normal LV size, LV systolic function normal, EF 60%, stage I diastolic dysfunction, mild focal AV calcification, given presentation as noted with planned hydration however will continue to closely monitor for any overload, holding diuretics, continue aspirin, statin, metoprolol, losartan regimen as BP allows. #7. Chronic asthma: Per current list does not appear to be on chronic regimen, will have PRN albuterol, HOB, IS parameters. #8. Hypertension: Continue home regimen including metoprolol, losartan, holding Lasix and hydrochlorothiazide given planned hydration as noted, PRN hydralazine. #9. Hyperlipidemia: Will continue patient on statin therapy. #10. Hypothyroidism: Will continue patient home levothyroxine regimen. #11. Anxiety and depression: Will continue patient home fluoxetine, as needed hydroxyzine regimen. #12. GERD: Will continue patient on PPI. #13. HERMINIA: Uses CPAP q HS normally, given current N/V will hold, supplemental oxygen as needed in interim. #14. Morbid Obesity: Weight loss and lifestyle changes encouraged, nutrition consulted. #15. DVT prophylaxis: Lovenox. #16. CODE status: Patient RAMON is her daughter and living will is currently in place and she also notes having MOLST form. Discussed CODE status at length including difference between FULL code, DNR-CCA and DNR-CC status. Following discussions about the differences in these status, requested DNR-CCA, no intubation status. Advanced Care Planning Face to Face Time: 16 minutes. Charges/Coding Visit Charges Inpatient E&M: 12259 Init Hosp L3 Procedures Hospitalists Procedures: 39224 Advncd Care Plan 30 Min
[2024-08-11 22:37] LABS: Bedside Glucose 386 mg/dL (74-106)
[2024-08-12] VITALS (17 sets, daily range): BP systolic 102–146; BP diastolic 40–107; PULSE 60–83; RESP 12–20; TEMP 36.2–36.7; O2SAT 90–100; BMI 41.0
[2024-08-12] MEDS: Insulin Lispro 100 UNIT in 0.9% Normal Saline (100mL Bag) 99 ML 11.6 UNIT CONT INF
[2024-08-12 00:10] LABS: Color, Urine Yellow (Yellow); Glucose, Dipstick 1000 mg/dl (Normal); Ketone-Dipstick Negative (Negative); Leukocyte Esterase-Dipstick 500 /ul (Negative); Mucous, Urine 0 SEEN /hpf (<or=2+); Nitrite-Dipstick Positive (Negative); Occult Blood-Urine 10 /ul (Negative); Protein-Dipstick 15 mg/dl (Negative); Red Blood Cells-Urine 0 SEEN /hpf (0-5); Squamous Epithelial Cells - UA 0 SEEN /hpf (5-10); Urine Bilirubin Dipstick Negative (Negative); Urine Clarity Sl. Cloudy (Clear); Urine Urobilinogen Normal (Normal)
[2024-08-12] MEDS: Pantoprazole Sodium 40 MG in 0.9% Normal Saline (100mL MB+) 100 ML 330 MG IV (00:14)
[2024-08-12] MEDS: 0.9% Saline Lock 10 ML Syringe IV ×3 (00:16→21:11)
[2024-08-12] MEDS: 0.9% Normal Saline (1000mL) 1,000 ML 150 ML IV (00:16)
[2024-08-12 00:23] LABS: Bacteria 2+ /hpf (None Seen); White Blood Cells 10-25 SEEN /hpf (0-5); Yeast-Urine 1+ /hpf (None Seen)
[2024-08-12 00:46] LABS: Osmolality, Serum 304 mOsm/KG (280-301)
[2024-08-12 01:12] LABS: Anion Gap 13 (5-15); BUN 40 mg/dL (4-19); Calcium,Total 8.7 mg/dL (7.6-11.0); Carbon Dioxide 27.1 mmol/L (21.0-32.0); Chloride 90 mmol/L (98-108); Creatinine, Serum 1.28 mg/dL (0.70-1.20); EST Glomerular Filtration Rate 45 (>60); Glucose 358 mg/dL (70-99); Magnesium 2.1 mg/dL (1.5-2.2); Phosphorus 2.1 mg/dL (2.7-4.5); Potassium 2.9 mmol/L (3.3-5.1); Sodium Level 129 mmol/L (133-145)
--- NOTE | 2024-08-12 01:23 | PN.HOSP_ITS ---
Hospitalist Note Repeat urinalysis with positive nitrite, leukocyte esterase 500, urine WBCs 10- 25 with 2+ urine bacteria, urine culture pending from this specific urinalysis. Will continue IV Rocephin given these findings.
--- NOTE | 2024-08-12 01:23 | PCM.HOSP.N ---
Hospitalist Note Repeat urinalysis with positive nitrite, leukocyte esterase 500, urine WBCs 10-25 with 2+ urine bacteria, urine culture pending from this specific urinalysis. Will continue IV Rocephin given these findings.
[2024-08-12] MEDS: Sodium Phosphate/Na Biphos 15 MMOL in 0.9% Normal Saline (250mL Bag) 250 ML 125 MMOL IV (01:50)
[2024-08-12] MEDS: Potassium Chloride 10mEq/100mL 10 MEQ/100 ML IV.SOLN. 100 MEQ IV BOLUS ×8 (01:50→11:12)
[2024-08-12] MEDS: Dext 5%-0.45% NS 1,000 ML 150 ML IV (02:00)
[2024-08-12 03:35] LABS: Absolute Lymphocyte Count 3.51 X10^3/uL (0.83-4.51); Absolute Neutrophil Count 4.4 X10^3/uL (2.0-7.7); Basophil# 0.03 X10^3/uL; Basophil% 0.3 % (0-1); Eosinophil# 0.12 X10^3/uL; Eosinophils% 1.4 % (0-5); Hematocrit 38.4 % (37-47); Hemoglobin 12.7 g/dL (12.0-15.0); Lymphocyte # 3.51 X10^3/ul (0.83-4.51); Lymphocyte % 40.8 % (19-41); Mean Corp Hgb Conc 33.1 g/dL (32-36); Mean Corpuscular Hgb 28.5 pg (27.0-32.0); Mean Corpuscular Volume 86.3 fL (81-99); Mean Platelet Vol. 9.1 fl (6.2-12.0); Monocyte# 0.56 X10^3/uL; Monocyte% 6.5 % (0-10); NRBC Flagged by Analyzer 0 % (0-5); Neutrophil # 4.35 X10^3/uL (2.7-7.7); Neutrophil % 50.5 % (47-70); Platelet Count 264 K/mm3 (150-450); RBC Distribution Width CV 13.1 % (11.6-14.6); RBC Distribution Width SD 40.5 fl (35.1-43.9); Red Blood Count 4.45 M/mm3 (4.2-5.4); White Blood Count 8.6 K/mm3 (4.4-11.0)
[2024-08-12 04:47] LABS: Hemoglobin A1c 14.6 % (<=5.6)
[2024-08-12 04:51] LABS: ALB/GLOB Ratio 1.4 RATIO (0.9-2.4); AST(SGOT) 13 U/L (<=31); Alanine Aminotransfer ALT/SGPT 9 U/L (<=34); Albumin, Serum 3.3 g/dL (3.4-4.8); Alkaline Phosphatase 67 U/L (35-104); Anion Gap 11 (5-15); BUN 34 mg/dL (4-19); BUN/Creat Ratio 30.2 RATIO (10-20); Calcium,Total 8.1 mg/dL (7.6-11.0); Chloride 97 mmol/L (98-108); Creatinine, Serum 1.11 mg/dL (0.70-1.20); EST Glomerular Filtration Rate 53 (>60); Globulin 2.5 g/dL (2.2-4.2); Glucose 124 mg/dL (70-99); Potassium 2.9 mmol/L (3.3-5.1); Protein, Total 5.8 g/dL (5.9-8.4); Sodium Level 136 mmol/L (133-145); Total Bilirubin < 0.15 mg/dL (0.00-1.30)
[2024-08-12] MEDS: Levothyroxine 175 MCG Tablet PO (05:05)
--- NOTE | 2024-08-12 06:34 | PCM.HOSP.N ---
Hospitalist Note AG closed x 2, will transition given improvement back to ADA diet trial, oral PPI, accu check with ISS ACHS and low dose scheduled short acting TID AC.
[2024-08-12 06:47] LABS: Potassium 2.7 mmol/L (3.3-5.1)
[2024-08-12 06:51] LABS: Magnesium 1.8 mg/dL (1.5-2.2); Phosphorus 2.6 mg/dL (2.7-4.5)
[2024-08-12 08:11] LABS: Bedside Glucose 89 mg/dL (74-106)
[2024-08-12] MEDS: Acetaminophen 325 MG Tablet 650 MG PO ×2 (08:59→21:10)
[2024-08-12] MEDS: Aspirin E.C. 81 MG Tablet PO (09:00)
[2024-08-12] MEDS: Loratadine 10 MG Tablet PO (09:00)
[2024-08-12] MEDS: Enoxaparin 40 MG/0.4 ML Syringe SC ×2 (09:00→21:03)
[2024-08-12] MEDS: Metoprolol(XL)Succ 50 MG Tablet PO (09:00)
[2024-08-12] MEDS: DULoxetine Hcl 60 MG Capsule PO (09:00)
[2024-08-12] MEDS: Menthol/Lanolin/Calamine/Znox 113 GM Tube 1 APPLIC TOPICAL ×3 (10:00→16:43)
[2024-08-12 10:14] LABS: Bedside Glucose 139 mg/dL (74-106)
[2024-08-12 10:14] LABS: Bedside Glucose 114 mg/dL (74-106)
[2024-08-12 10:14] LABS: Bedside Glucose 94 mg/dL (74-106)
[2024-08-12 10:14] LABS: Bedside Glucose 90 mg/dL (74-106)
[2024-08-12 10:14] LABS: Bedside Glucose 265 mg/dL (74-106)
[2024-08-12 10:14] LABS: Bedside Glucose 356 mg/dL (74-106)
[2024-08-12 10:14] LABS: Bedside Glucose 171 mg/dL (74-106)
[2024-08-12 10:14] LABS: Bedside Glucose 98 mg/dL (74-106)
--- NOTE | 2024-08-12 10:31 | PN_ITS ---
Subjective Subjective Patient seen and examined this morning. She is feeling much better. She was admitted with complaint of hyperglycemia due to had not been able to take her insulin for about 2 weeks. Her nausea and vomiting and diarrhea have resolved. Her blood sugar this morning was running around 88 so she was not given her Lantus early this morning. She is off insulin drip. Review of systems otherwise negative. She has been hemodynamically stable. Objective Data Objective Data Vital Signs: Vital Signs Temp Pulse Resp BP Pulse Ox O2 Del Method O2 Flow Rate 97.3 F L 77 19 H 136/107 H 90 Room Air 2 08/12/24 08:04 08/12/24 10:00 08/12/24 10:00 08/12/24 10:00 08/12/24 10:00 08/12/24 10:00 08/12/24 09:00 Oxygen Flow Rate (L/min) 2 Oxygen Delivery Method Room Air Weight: 255 lb 4.725 oz Body Mass Index (BMI) 41.0 Intake & Output: Intake and Output for Last 24 Hours 08/10/24 08/11/24 08/12/24 23:59 23:59 23:59 Intake Total 2049 / 2049 2244.37 / 2244.37 Output Total 1230 / 1230 Balance 2049 / 1599 1014.37 / 1014.37 Lab / Micro Data 08/12/24 03:26 08/12/24 06:07 Labs: Laboratory Results - last 24 hr 08/11/24 19:02: WBC 12.5 H, RBC 4.74, Hgb 13.6, Hct 40.7, MCV 85.9, MCH 28.7, MCHC 33.4, RDW Std Deviation 40.5, RDW Coeff of Shira 13.2, Plt Count 325, MPV 9.4, Immature Gran % (Auto) 0.600, Neut % (Auto) 75.5 H, Lymph % (Auto) 18.4 L, [place] % (Auto) 5.0, Eos % (Auto) 0.3, Baso % (Auto) 0.2, Absolute Neuts (auto) 9.4 H, Absolute Lymphs (auto) 2.30, Nucleated RBC % 0, Sodium 123 L, Potassium 3.4, Chloride 83 L, Carbon Dioxide 24.2, Anion Gap 16 H, BUN 40 H, Creatinine 1.49 H, Est GFR (MDRD) Non-Af 38 L, BUN/Creatinine Ratio 26.9 H, Glucose 649 H*, Calcium 8.6, Total Bilirubin 0.17, AST 18, ALT 9, Alkaline Phosphatase 87, Total Protein 6.5, Albumin 3.6, Globulin 2.9, Albumin/Globulin Ratio 1.2, Lipase 56 08/11/24 19:09: b-Hydroxybutyric mmol/L 0.4 08/11/24 20:24: Urine Color Yellow, Urine Clarity Cloudy, Urine pH 6.0, Ur Specific [place] 1.010, Urine Protein 30 H, Urine Glucose (UA) 1000 H, Urine Ketones Negative, Urine Occult Blood 25 H, Urine Nitrite Negative, Urine Bilirubin Negative, Urine Urobilinogen Normal, Ur Leukocyte Esterase 500 H, Urine RBC 0-5 SEEN, Urine WBC >100 SEEN, Ur Squamous Epith Cells 10-25 SEEN, Ur Transition Epith Cell 0-5 SEEN, Urine Bacteria 3+, Urine Mucus 0 SEEN, Urine Yeast 3+ 08/11/24 22:18: POC Glucose 386 H 08/11/24 23:50: Urine Color Yellow, Urine Clarity Sl. Cloudy, Urine pH 6.0, Ur Specific [place] 1.010, Urine Protein 15 H, Urine Glucose (UA) 1000 H, Urine Ketones Negative, Urine Occult Blood 10 H, Urine Nitrite Positive H, Urine Bilirubin Negative, Urine Urobilinogen Normal, Ur Leukocyte Esterase 500 H, Urine RBC 0 SEEN, Urine WBC 10-25 SEEN, Ur Squamous Epith Cells 0 SEEN, Urine Bacteria 2+, Urine Mucus 0 SEEN, Urine Yeast 1+ 08/11/24 23:56: POC Glucose 356 H 08/12/24 00:05: Sodium 129 L, Potassium 2.9 L, Chloride 90 L, Carbon Dioxide 27.1, Anion Gap 13, BUN 40 H, Creatinine 1.28 H, Estim Creat Clear Calc 52.90, E st GFR (MDRD) Non-Af 45 L, BUN/Creatinine Ratio 31.0 H, Glucose 358 H, Serum Osmolality 304 H, Calcium 8.7, Phosphorus 2.1 L, Magnesium 2.1 08/12/24 01:01: POC Glucose 265 H 08/12/24 01:54: POC Glucose 171 H 08/12/24 02:56: POC Glucose 139 H 08/12/24 03:26: WBC 8.6, RBC 4.45, Hgb 12.7, Hct 38.4, MCV 86.3, MCH 28.5, MCHC 33.1, RDW Std Deviation 40.5, RDW Coeff of Shira 13.1, Plt Count 264, MPV 9.1, Immature Gran % (Auto) 0.500, Neut % (Auto) 50.5, Lymph % (Auto) 40.8, [place] % (Auto) 6.5, Eos % (Auto) 1.4, Baso % (Auto) 0.3, Absolute Neuts (auto) 4.4, Absolute Lymphs (auto) 3.51, Nucleated RBC % 0, Sodium 136, Potassium 2.9 L, C hloride 97 L, Carbon Dioxide 28.0, Anion Gap 11, BUN 34 H, Creatinine 1.11, Estim Creat Clear Calc 61.00, Est GFR (MDRD) Non-Af 53 L, BUN/Creatinine Ratio 30.2 H, Glucose 124 H, Hemoglobin A1c 14.6 H, Calcium 8.1, Total Bilirubin < 0.15, AST 13, ALT 9, Alkaline Phosphatase 67, Total Protein 5.8 L, Albumin 3.3 L , Globulin 2.5, Albumin/Globulin Ratio 1.4 08/12/24 03:57: POC Glucose 114 H 08/12/24 05:03: POC Glucose 98 08/12/24 06:03: POC Glucose 90 08/12/24 06:07: Potassium 2.7 L*, Phosphorus 2.6 L, Magnesium 1.8 08/12/24 07:01: POC Glucose 94 08/12/24 07:46: POC Glucose 89 Micro: Microbiology 08/11/24 20:24 Urine, Random Urine Culture - Preliminary Presumptive E. coli ABG Data ABG results: ABG 08/11/24 20:16 Specimen Type ART Sample Site L Radial pH 7.48 H Bicarbonate Actual 31.3 H Total CO2 33 Base Excess 8 H O2 Saturation 89 L ABG pCO2 41.6 ABG pO2 53 L Wiliam Test Positive O2 Delivery Device Room Air Vent Mode Not entered Physical Exam Const alert, oriented x3 and no apparent distress Constitutional Narrative: class III obesity General Appearance: cooperative HEENT normocephalic, head/scalp atraumatic, moist oral mucous membranes and oropharynx normal Eyes PERRL and EOMs intact bilaterally Neck no lymphadenopathy and supple Lymph Lymphatic: no lymphadenopathy noted and no lymphedema noted Resp normal respiratory effort, normal air movement and clear to auscultation bilaterally Cardio regular rate, regular rhythm, S1 normal heart sound, S2 normal heart sound and no murmurs GI normal to inspection, nondistended, normoactive bowel sounds, soft to palpation, non-tender and non-distended Extremity normal capillary refill, no clubbing, cyanosis or edema and no calf tenderness General Extremity: no tenderness to palpation of joints or extremities Skin General Skin Exam: no breakdown Neuro CN's II-XII intact bilaterally, no focal motor deficits and no sensory deficits noted Motor Exam: general weakness Psych thought process normal and cooperative Appearance: appropriate Assessment & Plan Assessment/Plan (1) Diabetic ketoacidosis: (2) Acute kidney injury: PLAN: Plan # Hypoglycemia in the setting of suspected HHS * patient is a known diabetic. She says she recently moved to [place] from [place] and has been having challenges with her insurance and insulin coverage. * her insulin was recently sent to a different pharmacy and she says she has had challenges getting it to the correct pharmacy. She was therefore out of her insulin for 2 weeks * was on insulin drip but has been weaned off. Her blood sugar was down to 88 this morning so her lantus was held. * blood clucose after breakfast was 188, so her home dose of lantus 40 units was resumed * continue ISS. Accuchecks ACHS. * transfer out of ICU to PCU * case management on board to help with her insurance coverage concerns. * #Diarrhea: resolved. #Electrolyte imbalance: Potassium is 2.7 today. Being aggressively replaced. Low sodium has resolved. #UTI: urinalysis showed evidence of UTI. On IV ceftriaxone. Urine cultures pending # History of heart failure preserved ejection fraction: * Not in exacerbation. Echo from April 16, 2024 showed EF of 60% with stage I diastolic dysfunction. * Stable. Lasix held. #Hypertension: on metoprolol, losartan. #Hyperlipidemia: on statin #Hypothyroidism:on synthroid #Anxiety and depression: on fluxetine #GERD: on PPI #HERMINIA: on CPAP qhs DVT prophylaxis: lovenox Charges/Coding Visit Charges Inpatient E&M: 12036 Subs Hosp L2
[2024-08-12] MEDS: Insulin Glargine-YFGN 100 UNIT/ML Pen 40 UNIT SC ×2 (10:33→21:01)
[2024-08-12] MEDS: Insulin Lispro 100 UNIT/ML INSULN.PEN SC ×5 (11:20→21:02)
[2024-08-12 12:45] LABS: Bedside Glucose 188 mg/dL (74-106)
--- NOTE | 2024-08-12 15:38 | CASEMGMT ---
RN CM Assessment Face to Face with patient for initial transition planning/care coordination assessment. RN CM introduced self and role at [facility], pt voices understanding. Pt is A&Ox4 and is resting comfortably in the chair and is calm. Care providers, pharmacy, and demographics verified. Pt states that she moved back to [place] from [place] last November. Pt states that she would like to return to [place], where her daughter lives, in the near future. Pt states that she plans to go down there in September or October to look for a place to live. Pt is requesting assistance with the transfer process regarding insurance. SW notified. Admitting dx: DKA vs HHS, UTI LACE Strata: 2 PCP: Praveen Barba Specialists: [facility]. Pt states that she was seeing an Vacation Planner in [place]. Pt was provided with Dr. Woodward's information at this time and was encouraged to call and make an appt to better help her manage her DM. Preferred Pharmacy: [facility] Insurance: [employer] Prescription Benefit: Yes LNOK: Lisa Oshea (Daughter), Carina Leon (DIL) Living Arrangements: Pt lives with her DIL and GD in a 2 story home with 3 total steps to enter ADLs/IADLs: Pt states that she is mainly independent but that her family is able to provide assistance with tasks such as cooking and cleaning. Transportation: Family, friends. Denies current concerns DME: Pt states to this RN CM that she has a functioning BGM with sufficient supplies. Pt states that she recently had her long acting insulin Rx refilled and has enough long acting insulin now plus pen needles. However, pt states that she is completely out of her fast acting insulin at this time. Pt states that she normally gets her insulin supplies shipped to her PCP's office through [facility]. Pt states that the health middleware consultant sent her insulin supplies to her old PCP in [place] and that the pt has been having troubles getting this switched back over to her current PCP in [place]. Pt states that she talked to [facility] this morning and they stated that they will not be able to get the supplies to her current PCP's office until 08/27/24 at the earliest. Pt is OK with the needed DM supplies being sent to [facility] in [place]. Dr. Arguello notified. Pt also states that she has a BSC, raised toilet seat, FWW, and cane. At this time, the pt is requesting an extended tub bench. Pt reports that she would prefer [employer] for DME. TC to [employer] who states that this DME is not supplied by the DME company and that it is not normally covered by insurance. Pt educated. However, after looking into [employer] website, the pt may be able to have the insurance cover part of the cost. CM to provide pt with an Rx. Pt educated that she can attempt to get this filled at [facility], [facility], or [facility]. Pt states understanding and plans to do so. Pt was also educated on other purchasing options that may end up being cheaper, including [employer] and [facility] (around 50$ on [facility] website with free shipping). CM to follow. HHC/SNF: Hx with [facility] HH and HHC in [place]. Denies SNF Pt?s goal: Home Plan: Home with the needed DM supplies and Rx for extended tub bench. Current 6-Click score is 21. PT is pending. At this time, the pt denies the need for HHC, OP Tx, or SNF. CM to follow. Pt states that she feels safe returning home with her family once she is medically ready. Pt states that she would like to talk to the Community Center Director. Ray notified. Pt denies further questions or concerns at this time. CM to follow. Jennifer Rm RN, CM
--- NOTE | 2024-08-12 15:54 | CHAPLAIN ---
Type of Pastoral Visit _x__ Initial Visit ___ Follow-up Visit ___ On-call Visit ___ General Patient Visit ___ Spiritual Assessment ___ Family Conference ___ Bereavement ___ Rapid Response ___ Code Blue ___ Other (describe below) Pastoral Care Referral From _x__ Patient ___ Family ___ Nurse ___ Physician ___ Shop Clerk ___ Glycerine Plant Operator ___ Other (describe below) Sacrament/Intervention _x__ Active listening ___ Anointing ___ Judaism ___ Bereavement ___ Communion _x__ Christel exploration ___ _x__ Life review _x__ Prayer ___ Reconciliation ___ Sacrament of Sick _x__ Supportive presence ___ Wedding ___ Other (describe below) Pastoral Comments patient specifically asked for the local company truck driver to visit and to give support; pt reviews her life since the last admission; pt has plans to move back to [place] this year taking with her the family that she lives with now in [place]; pt's spouse is in a snf in [place]; pt is spiritually minded and asks many questions about christel and God's plan; pt has found a congregational fellowship here that is supportive for her but she also looks forward to returning to the familiar surroundings and people in [place]; pt welcomes prayer and presence; pt expresses thanks for the support and visit
--- NOTE | 2024-08-12 16:24 | CASEMGMT ---
Social Work- SW met with pt to provide information and resources. SW introduced self and role; SW previously known to pt. Pt receptive to visit. Pt reports that she will be moving to [place] later this year and was interested in resources for when she moves. SW provided printables from [facility] agency on aging to assist with insurance counseling and resource connection. Pt shared concerns and issues that have been prevalent in her life recently. SW actively and empathetically listened and provided support. Pt reports no other needs at this time. SW remains available to follow. DEXTER Reyes
[2024-08-12 16:42] LABS: Bedside Glucose 302 mg/dL (74-106)
[2024-08-12] MEDS: Pantoprazole Sodium 20 MG Tablet PO (21:03)
[2024-08-12] MEDS: Atorvastatin Calcium 40 MG Tablet PO (21:03)
[2024-08-12] MEDS: Ceftriaxone 1 GM/50 ML BAG IV (21:07)
[2024-08-12 21:26] LABS: Bedside Glucose 269 mg/dL (74-106)
[2024-08-13] MEDS: Levothyroxine 175 MCG Tablet PO (04:13)
[2024-08-13 04:20] VITALS: BP 131/55; PULSE 73; RESP 16; TEMP 36.3; O2SAT 94
[2024-08-13 04:37] LABS: Bedside Glucose 182 mg/dL (74-106)
[2024-08-13 05:08] VITALS: BMI 42.3
[2024-08-13 05:23] LABS: Absolute Lymphocyte Count 2.74 X10^3/uL (0.83-4.51); Absolute Neutrophil Count 2.6 X10^3/uL (2.0-7.7); Basophil# 0.03 X10^3/uL; Basophil% 0.5 % (0-1); Eosinophil# 0.15 X10^3/uL; Eosinophils% 2.5 % (0-5); Hematocrit 37.1 % (37-47); Hemoglobin 12.4 g/dL (12.0-15.0); Lymphocyte # 2.74 X10^3/ul (0.83-4.51); Lymphocyte % 46.3 % (19-41); Mean Corp Hgb Conc 33.4 g/dL (32-36); Mean Corpuscular Volume 86.7 fL (81-99); Monocyte# 0.34 X10^3/uL; Monocyte% 5.7 % (0-10); NRBC Flagged by Analyzer 0 % (0-5); Neutrophil # 2.62 X10^3/uL (2.7-7.7); Neutrophil % 44.3 % (47-70); Platelet Count 235 K/mm3 (150-450); RBC Distribution Width CV 13.2 % (11.6-14.6); RBC Distribution Width SD 40.4 fl (35.1-43.9); Red Blood Count 4.28 M/mm3 (4.2-5.4); White Blood Count 5.9 K/mm3 (4.4-11.0)
[2024-08-13 05:48] LABS: ALB/GLOB Ratio 1.3 RATIO (0.9-2.4); AST(SGOT) 14 U/L (<=31); Alanine Aminotransfer ALT/SGPT 7 U/L (<=34); Albumin, Serum 3.2 g/dL (3.4-4.8); Alkaline Phosphatase 61 U/L (35-104); Anion Gap 9 (5-15); BUN 18 mg/dL (4-19); BUN/Creat Ratio 19.9 RATIO (10-20); Calcium,Total 8.6 mg/dL (7.6-11.0); Carbon Dioxide 25.7 mmol/L (21.0-32.0); Chloride 100 mmol/L (98-108); Creatinine, Serum 0.91 mg/dL (0.70-1.20); EST Glomerular Filtration Rate 68 (>60); Globulin 2.4 g/dL (2.2-4.2); Glucose 215 mg/dL (70-99); Potassium 3.1 mmol/L (3.3-5.1); Protein, Total 5.5 g/dL (5.9-8.4); Sodium Level 134 mmol/L (133-145); Total Bilirubin 0.15 mg/dL (0.00-1.30)
[2024-08-13 08:15] VITALS: PULSE 73
[2024-08-13] MEDS: Aspirin E.C. 81 MG Tablet PO (08:15)
[2024-08-13] MEDS: Loratadine 10 MG Tablet PO (08:15)
[2024-08-13] MEDS: DULoxetine Hcl 60 MG Capsule PO (08:15)
[2024-08-13] MEDS: Enoxaparin 40 MG/0.4 ML Syringe SC (08:15)
[2024-08-13] MEDS: Metoprolol(XL)Succ 50 MG Tablet PO (08:15)
[2024-08-13] MEDS: Insulin Lispro 100 UNIT/ML INSULN.PEN SC ×4 (08:16→11:21)
[2024-08-13] MEDS: Insulin Glargine-YFGN 100 UNIT/ML Pen 40 UNIT SC (08:16)
[2024-08-13] MEDS: Arthritis Pain Compound 60 CLICK TUBE TOPICAL (08:21)
[2024-08-13 08:47] LABS: Bedside Glucose 187 mg/dL (74-106)
[2024-08-13] MEDS: Nitrofurantoin Macrocrystals 100 MG Capsule PO (10:10)
[2024-08-13] MEDS: Potassium Chloride Oral Tablet 20 MEQ 40 MEQ PO (10:10)
[2024-08-13 10:20] VITALS: BP 122/60; PULSE 72; RESP 18; TEMP 36; O2SAT 95
--- NOTE | 2024-08-13 12:06 | DS.PCM_ITS ---
Providers Date of Admission: 08/11/24 Date of Discharge: 08/13/24 Primary Care Physician: Praveen Barba MD Reason For Visit: ? DKA VERSUS HHS, ? UTI Diagnosis Discharge Diagnosis (1) Diabetic ketoacidosis: Status: Acute Code(s): E11.10 - Type 2 diabetes mellitus with ketoacidosis without coma (2) Acute kidney injury: Status: Acute Code(s): N17.9 - Acute kidney failure, unspecified Plan # Hypoglycemia in the setting of suspected HHS * patient is a known diabetic. She says she recently moved to [place] from [place] and has been having challenges with her insurance and insulin coverage. * her insulin was recently sent to a different pharmacy and she says she has had challenges getting it to the correct pharmacy. She was therefore out of her insulin for 2 weeks * was on insulin drip but has been weaned off. Her blood sugar was down to 88 this morning so her lantus was held. * blood clucose after breakfast was 188, so her home dose of lantus 40 units was resumed * continue ISS. Accuchecks ACHS. * transfer out of ICU to PCU * case management on board to help with her insurance coverage concerns. * #Diarrhea: resolved. #Electrolyte imbalance: Potassium is 2.7 today. Being aggressively replaced. Low sodium has resolved. #UTI: urinalysis showed evidence of UTI. On IV ceftriaxone. Urine cultures pending # History of heart failure preserved ejection fraction: * Not in exacerbation. Echo from April 16, 2024 showed EF of 60% with stage I diastolic dysfunction. * Stable. Lasix held. #Hypertension: on metoprolol, losartan. #Hyperlipidemia: on statin #Hypothyroidism:on synthroid #Anxiety and depression: on fluxetine #GERD: on PPI #HERMINIA: on CPAP qhs DVT prophylaxis: lovenox Medications at Discharge Home Medications pen needle, diabetic, safety 30 gauge x 1/3 ##1 11/13/18 dulaglutide 1.5 mg/0.5 mL subcutaneous pen injector (Trulicity) 1.5 mg subcut QWEEK 02/22/24 duloxetine 60 mg capsule,delayed release 60 mg PO DAILY pain #30 caps 02/25/24 levothyroxine 175 mcg tablet 175 mcg PO DAILY thyroid #30 tabs 02/25/24 losartan 100 mg-hydrochlorothiazide 25 mg tablet 1 tab PO DAILY blood pressure #30 tabs 02/25/24 metoprolol succinate 50 mg tablet,extended release 24 hr 50 mg PO DAILY bp #30 tabs 02/25/24 simvastatin 80 mg tablet 80 mg PO QHS cholesterol #30 tabs 02/25/24 acetaminophen 650 mg tablet,extended release 1,300 mg PO BID PRN PRN Pain 03/20/24 albuterol sulfate 90 mcg/actuation aerosol inhaler 2 puff inhalation Q4-6H PRN shortness of breath or wheezing 03/20/24 aspirin 81 mg tablet,delayed release (Adult Low Dose Aspirin) 81 mg PO QDAY 03/20/24 cetirizine 10 mg tablet 10 mg PO QDAY 03/20/24 cholecalciferol (vitamin D3) 50 mcg (2,000 unit) tablet (Vitamin D3) 50 mcg PO QDAY 03/20/24 diclofenac sodium 1 % topical gel (Aleve (diclofenac)) 2 g topical ONCE PRN pain 03/20/24 hydroxyzine HCl 50 mg tablet 50 mg PO TID PRN anxiety 03/20/24 multivitamin 1 tab PO QAM 03/20/24 nystatin 100,000 unit/gram topical powder (Nyamyc) 1 applic topical PRN yeast 03/20/24 torsemide 20 mg tablet 20 mg PO DAILY PRN diuretic 03/20/24 omeprazole 20 mg capsule,delayed release 20 mg PO QHS gerd 08/11/24 potassium chloride 20 mEq tablet,extended release(part/cryst) 40 meq PO DAILY supplement 08/11/24 insulin degludec 100 unit/mL (3 mL) subcutaneous pen (Tresiba FlexTouch U-100 insulin) 40 unit (0.4 mL) subcut BIDCM #15 mL 08/13/24 insulin lispro 100 unit/mL subcutaneous pen (Humalog KwikPen (U-100) Insulin) 15 unit (0.15 mL) subcut QAC #15 mL 08/13/24 nitrofurantoin monohydrate/macrocrystals 100 mg capsule 100 mg PO BID #9 caps 08/13/24 potassium chloride 20 mEq tablet,extended release 20 meq PO DAILY #10 tabs 08/13/24 Hospital Course Operations None Procedures None Summary of Care Provided Minutes Spent on Discharge: 55 Hospital Course: Call patient is a 69-year-old female with a past medical history as outlined was admitted through the ED on 08/11/2024 with a complaint of markedly elevated blood sugars. She had been off of her insulin for about 2 weeks prior to admission due to her recently having moved and her medications been sent to the wrong pharmacy. She has been having difficulty getting the medicine to the right pharmacy so she had not taken her meds for about 2 weeks prior to her coming in. She also had left flank discomfort, nausea and vomiting as well as diarrhea which had been intermittent for about a week prior to admission. She had been diagnosed earlier in the month with UTI and was initially treated with Augmentin and subsequently transition to Macrobid. Urinalysis showed cloudy urine with leukocyte esterase elevated as well as elevated WBC and 3+ bacteria. BMP showed hydroxybutyrate of 0.4 with anion gap of 16 and creatinine of 1.49. Glucose was 649. She was admitted and managed for HHS with impending DKA as well as UTI. She was admitted to the ICU and started on insulin drip. She was started on IV ceftriaxone for the UTI. Anion gap closed and she was transitioned to her subcu Lantus 40 units twice daily as well as insulin sliding scale. Urine cultures grew ESBL E. coli so she was transitioned to p.o. nitrofurantoin. Patient was discharged home on 08/13/2024. She was discharged on her Lantus 40 units twice daily and also discharged on insulin sliding scale. She was given a prescription for p.o. nitrofurantoin. Milligram twice daily to complete a 5-day course. She is follow-up with her primary care doctor and was referred to endocrinology to establish care for her diabetes. Patient seen and examined prior to discharge. She had no active complaints and felt well. She had an uneventful night. Review of systems otherwise negative. Labs and vitals reviewed. Home medications reviewed and reconciled. Physical Exam Const alert, oriented x3 and no apparent distress Constitutional Narrative: class III obesity General Appearance: cooperative, comfortable and well kempt Orientation / Consciousness: awake Exam Limitations: no limitations HEENT normocephalic, head/scalp atraumatic, hearing grossly normal bilaterally, moist oral mucous membranes and oropharynx normal Mouth: oral and palatal mucosa normal Eyes PERRL, EOMs intact bilaterally and conjunctivae normal Neck no lymphadenopathy and supple Lymph Lymphatic: no lymphadenopathy noted and no lymphedema noted Resp normal respiratory effort, normal air movement and clear to auscultation bilaterally Cardio regular rate, regular rhythm, S1 normal heart sound, S2 normal heart sound and no murmurs GI normal to inspection, nondistended, normoactive bowel sounds, soft to palpation, non-tender and non-distended Extremity normal to inspection, full ROM, normal capillary refill, no clubbing, cyanosis or edema and no calf tenderness General Extremity: no tenderness to palpation of joints or extremities Skin no rashes or lesions noted General Skin Exam: no breakdown Neuro oriented x3, CN's II-XII intact bilaterally, moves all extremities, no focal motor deficits and no sensory deficits noted Sensorium / Orientation: awake and alert Motor Exam: strength 5/5 throughout and general weakness Psych thought process normal and cooperative Appearance: appropriate Weight / BMI Weight Weight: 262 lb 2.074 oz Body Mass Index (BMI) 42.3 ABG / Lab / Microbiology Data 08/13/24 04:59 08/13/24 04:59 Laboratory: Laboratory Results - last 24 hr 08/12/24 16:24: POC Glucose 302 H 08/12/24 20:59: POC Glucose 269 H 08/13/24 04:19: POC Glucose 182 H 08/13/24 04:59: WBC 5.9, RBC 4.28, Hgb 12.4, Hct 37.1, MCV 86.7, MCH 29.0, MCHC 33.4, RDW Std Deviation 40.4, RDW Coeff of Shira 13.2, Plt Count 235, MPV 9.0, Immature Gran % (Auto) 0.700, Neut % (Auto) 44.3 L, Lymph % (Auto) 46.3 H, [place] % (Auto) 5.7, Eos % (Auto) 2.5, Baso % (Auto) 0.5, Absolute Neuts (auto) 2.6, Absolute Lymphs (auto) 2.74, Nucleated RBC % 0, Sodium 134, Potassium 3.1 L, Chloride 100, Carbon Dioxide 25.7, Anion Gap 9, BUN 18, Creatinine 0.91, Estim Creat Clear Calc 75.50, Est GFR (MDRD) Non-Af 68, BUN/Creatinine Ratio 19.9, G lucose 215 H, Calcium 8.6, Total Bilirubin 0.15, AST 14, ALT 7, Alkaline Phosphatase 61, Total Protein 5.5 L, Albumin 3.2 L, Globulin 2.4, Albumin/Globulin Ratio 1.3 08/13/24 08:12: POC Glucose 187 H 08/13/24 11:20: POC Glucose 218 H Microbiology: Microbiology 08/11/24 23:50 Urine, Catheterized Urine Culture - Preliminary Presumptive E. coli 08/11/24 20:24 Urine, Random Urine Culture - Preliminary ESBL Escherichia coli D/C Instructions Discharge Diet: Low fat / Low cholesterol and 1800 Calorie Control Diet Discharge Activity: Return to Normal Activity Weight Bearing Status: Weight bearing as tolerated Call your doctor if you observe: Fever of 101 or Higher, Shortness of breath, Dizziness, Swelling in the ankles and Chest pain DC O2, CPAP, BIPAP Needs Home O2 Discharge instructions: No DC home with Oxygen: No Meaningful Use Info Meaningful Use Meaningful Use Diagnoses (Choose all that apply): None applicable Ischemic Stroke Statin Dosing Therapy Reference: STATIN DOSE THERAPY REFERENCE: * Patients > 75 years receive moderate or high dose statin therapy. * Patients 75 years or YOUNGER should receive HIGH intensity statin dose unless contraindicated. You will be required to document reason for non-treatment if statin daily dose does not meet guidelines. HIGH DOSE STATIN THERAPY DAILY Atorvastatin > than or = to 40 mg Rosuvastatin > than or = to 20 mg Amlodipine + Atorvastatin > than or = to 2.5/40 mg Ezetimibe + Simvastatin 10/80 mg Simvastatin 80mg Discharge Plan Admission Admit Date/Time: 08/11/24 22:22 Primary Reason for Your Visit: dka, uti Attending Provider: Reema Arguello Primary Care Provider: Praveen Barba Consulting Providers: Amena Moreno Instructions Patient Instructions: Ketoacidosis Ch, UTI Ch Discharge Orders/Prescriptions Prescriptions: New nitrofurantoin monohyd/m-cryst 100 mg Capsule 100 mg PO BID Qty: 9 0RF potassium chloride 20 mEq tablet extended release 20 meq PO DAILY Qty: 10 0RF Continued albuterol sulfate 90 mcg/actuation HFA aerosol inhaler 2 puff inhalation Q4-6H PRN (Reason: shortness of breath or wheezing) aspirin [Adult Low Dose Aspirin] 81 mg tablet,delayed release (DR/EC) 81 mg PO QDAY cetirizine 10 mg tablet 10 mg PO QDAY diclofenac sodium [Aleve (diclofenac)] 1 % gel 2 g topical ONCE PRN (Reason: pain) Rx Instructions: apply to single elbow, wrist or hand; for hand includes palm/fingers/back of hand hydroxyzine HCl 50 mg tablet 50 mg PO TID PRN (Reason: anxiety) multivitamin Tablet 1 tab PO QAM nystatin [Nyamyc] 100,000 unit/gram powder 1 applic topical PRN torsemide 20 mg tablet 20 mg PO DAILY PRN (Reason: diuretic) Rx Instructions: Daily, as well as PRN cholecalciferol (vitamin D3) [Vitamin D3] 50 mcg (2,000 unit) tablet 50 mcg PO QDAY (DME) pen needle, diabetic, safety 1 EACH needle 1 ea MISCELL. UD Qty: 1 0RF acetaminophen 650 mg tablet extended release 1,300 mg PO BID PRN PRN (Reason: Pain) Trulicity 1.5 mg/0.5 mL pen injector 1.5 mg subcut QWEEK Rx Instructions: every saturday levothyroxine 175 mcg tablet 175 mcg PO DAILY Qty: 30 0RF duloxetine 60 MG capsule,delayed release(DR/EC) 60 mg PO DAILY Qty: 30 0RF metoprolol succinate 50 mg tablet extended release 24 hr 50 mg PO DAILY Qty: 30 0RF simvastatin 80 tablet 80 mg PO QHS Qty: 30 0RF losartan-hydrochlorothiazide 0 tablet 1 tab PO DAILY Qty: 30 0RF potassium chloride 20 MEQ tablet 40 meq PO DAILY omeprazole 20 mg capsule,delayed release(DR/EC) 20 mg PO QHS insulin lispro [Humalog KwikPen Insulin] 100 unit/mL insulin pen 15 unit subcut QAC Qty: 15 1RF Changed insulin degludec [Tresiba FlexTouch U-100] 100 unit/mL (3 mL) insulin pen 40 unit subcut BIDCM Qty: 15 2RF Patient Comments: per pt she bumped herself up to 100units, order that was entered was 40units BID Referrals / Follow Up: Praveen Barba MD [Primary Care Provider] - Within 1 Week Arturo Woodward MD [Med Staff - Courtesy Staff] - Within 1 Month (see to establish care for diabetes) Disposition Disposition (needs filled in before D/C Order can be placed): Home, Self Care Charges/Coding Visit Charges Inpatient E&M: 48537 Disch Hosp >30min
[2024-08-13 12:33] LABS: Bedside Glucose 218 mg/dL (74-106)
== END 2024-08-13 14:20 | disposition home or self-care (01) | DRG 638 ==
LOC: ED 22:25 → ICU 22:49 → PCU 08-13 11:00
PROVIDERS: Admitting Provider Family Medicine; Emergency Provider Emergency Medicine; PCP Family Medicine; Visit Provider Student in an Organized Health Care Education/Training Program
DX: E11.10 Type 2 diabetes mellitus with ketoacidosis without coma (principal); I50.32 Chronic diastolic (congestive) heart failure; E87.1 Hypo-osmolality and hyponatremia; Z68.41 Body mass index [BMI] 40.0-44.9, adult; N17.9 Acute kidney failure, unspecified; N39.0 Urinary tract infection, site not specified; Z66 Do not resuscitate; I11.0 Hypertensive heart disease with heart failure; E11.65 Type 2 diabetes mellitus with hyperglycemia; E03.9 Hypothyroidism, unspecified; F32.A Depression, unspecified; J45.20 Mild intermittent asthma, uncomplicated; K21.9 Gastro-esophageal reflux disease without esophagitis; E78.49 Other hyperlipidemia; E66.01 Morbid (severe) obesity due to excess calories; E87.8 Other disorders of electrolyte and fluid balance, not elsewhere classified; Z79.4 Long term (current) use of insulin; G47.33 Obstructive sleep apnea (adult) (pediatric); F41.9 Anxiety disorder, unspecified; Z79.82 Long term (current) use of aspirin; Z79.85 Long-term (current) use of injectable non-insulin antidiabetic drugs; Z79.890 Hormone replacement therapy; Z79.899 Other long term (current) drug therapy; Z99.89 Dependence on other enabling machines and devices
CPT/HCPCS: 36415; 36600; 80048; 80053; 81001; 82010; 82803; 82962; 83036; 83690; 83735; 83930; 84100; 84132; 85025; 87086; 87088; 87186; 93005; 94762; 97803; 99283; A4216

== ENCOUNTER → 2024-10-08 | Outpatient (CLI) | payer MEDICARE, SELFPAY | END | disposition home or self-care (01) | LOC: LABSPEC 15:09 | PROVIDERS: PCP Family Medicine; Visit Provider Physician Assistant Surgical | DX: R82.90 Unspecified abnormal findings in urine (principal) | CPT/HCPCS: 87077; 87086; 87088; 87186 ==